=== PATIENT | male | born 1940 | race Caucasian/White ===

== ENCOUNTER → 2024-08-14 | Outpatient (CLI) | payer MEDICARE ==
--- NOTE | 2024-08-14 16:01 | HMCIMG ---
Exam Type: CT ABDOMEN/PELVIS W/O CONTRAST Clinical Information: Abnormal weight loss Comparison: None CT Dose Index (CTDI): 10.20 mGy Dose Length Product (DLP): 530.00 total mGy-cm PROTOCOL: Routine noncontrast helical scanning of the abdomen and pelvis was performed at 5mm collimation. Findings: No evidence of nephro or ureterolithiasis is found. No hydronephrosis or ureteral dilatation is seen. The kidneys are atrophic. The lung bases are clear. Mild pericardial effusion. The stomach is unremarkable. It shows no wall thickening. No gross ulceration is seen. It is not overly distended. There are no surrounding inflammatory changes. No wall lesions are identified to suggest cancer. The spleen is unremarkable. It is not enlarged. The pancreas shows normal anatomy. It is not fatty replaced. It shows no lesions. The pancreatic duct is not dilated. There is evidence of cholelithiasis. No evidence of acute or chronic inflammation is seen. The adrenal glands are unremarkable. There is no enlargement. No lesions are noted. The liver is unremarkable. It shows no focal masses. The appendix is unremarkable. It shows no evidence of inflammation. No appendicolith is seen. There is no evidence of large or small bowel dilatation to suggest obstruction. However, there is a significant segment of the terminal ileum projecting into the cecum and the ascending colon. The ileocecal valve consistent with nonobstructive intussusception. The urinary bladder is unremarkable. There is no wall thickening to suggest tumor or inflammation. There are no intraluminal calculi. There are no diverticula. There is no evidence of chronic bladder outlet obstruction. There is no evidence of urinary bladder distention to suggest urinary retention. The other pelvic structures are unremarkable. The bony and vascular structures are unremarkable for the patient's age. IMPRESSION: There is no evidence of large or small bowel dilatation to suggest obstruction. However, there is a significant segment of the terminal ileum projecting into the cecum and the ascending colon. The ileocecal valve consistent with nonobstructive intussusception. This study was performed using dose reduction techniques to include automated exposure control and/or adjustment of the mA and/or kV according to patient size.
== END | disposition home or self-care (01) ==
LOC: RAH 11:21
PROVIDERS: ATTEND Family Medicine
DX: K80.20 Calculus of gallbladder without cholecystitis without obstruction (principal); I31.39 Other pericardial effusion (noninflammatory); K63.89 Other specified diseases of intestine; R63.4 Abnormal weight loss
CPT/HCPCS: 74176

== ENCOUNTER → 2024-09-05 | Outpatient (CLI) | payer MEDICARE ==
[~2024-09-05] MED LIST: ATOR40TA71 PO; CARV12.511 PO
--- NOTE | 2024-09-05 13:49 | HMCIMG ---
CT CHEST W/O CONTRAST HISTORY: Malignant neoplasm of ascending colon COMPARISON: None TECHNIQUE: Multiple sequential axial images of the chest were obtained from the thoracic inlet through upper abdomen. Patient was not given contrast through intravenous route. FINDINGS: COPD changes are seen. There are interstitial fibrosis. Tiny pericardial effusion is seen. There is no evidence of pulmonary nodule or parenchymal disease. No pleural effusion or pericardial effusion is seen. There is no evidence of pneumothorax. There are normal size mediastinal and hilar lymph nodes. The heart is not enlarged. Degenerative changes of the thoracolumbar spine are present. There is no evidence of adrenal nodule. Post cholecystectomy changes are seen. Gastric distention is seen. Calcified granuloma are seen. There appears to be hypodense nodule in the left hepatic lobe measuring 2 cm may be related to neoplastic process. Evaluation is limited due to lack of intravenous contrast. Bilateral renal cortical scarring is seen. Gallstone is seen in the contracted gallbladder. Coronary arterial calcifications are seen. IMPRESSION: 1. Findings as described above. CT was performed with one or more following dose reduction techniques: automated exposure control, adjustment of the mA and kv according to patient's size, or use of a iterative reconstruction technique.
== END | disposition home or self-care (01) ==
LOC: RAH 12:25
PROVIDERS: ATTEND Surgery
DX: C18.6 Malignant neoplasm of descending colon (principal); J84.10 Pulmonary fibrosis, unspecified; J44.9 Chronic obstructive pulmonary disease, unspecified; M47.815 Spondylosis without myelopathy or radiculopathy, thoracolumbar region; I25.10 Atherosclerotic heart disease of native coronary artery without angina pectoris; K80.20 Calculus of gallbladder without cholecystitis without obstruction; Z90.49 Acquired absence of other specified parts of digestive tract
CPT/HCPCS: 71250

== ENCOUNTER 2024-09-27 13:17 | Inpatient (IN) | payer MEDICARE ==
[~2024-09-27] VITALS: Ht 177.8 cm; Wt 65.0 kg
[~2024-09-27 13:17] MED LIST changes: +ASPI-1197 PO; +EZET10TA48 PO; +OMEP40CA21 PO; +SUCR1ORA15 PO
--- NOTE | 2024-09-27 14:51 | ERN ---
General Chief Complaint: Dehydration Stated Complaint: NAUSEA, VOMITTING, POSSIBLE DEHYDRATION Time Seen by MD: 13:25 Source: patient, family History of Present Illness Initial Comments Patient is a 83-year-old gentleman coming in with the abdominal pain abdominal distention. Patient states that he has not been able to tolerate oral intake. He was evaluated by GI specialist and sent in for further evaluation. He states that he had a surgery on September 12 in his had abdominal pain since then. Allergies: Coded Allergies: No Known Drug Allergies (Unverified Allergy, Unknown, 09/08/24) Home Meds Reported Medications Aspirin (Aspirin) 81 Mg Tab.chew, 81 MG PO DAILY, TAB.CHEW 09/12/24 Omeprazole (Omeprazole) 40 Mg Capsule.dr, 40 MG PO BID, CAP 09/12/24 Ezetimibe (Ezetimibe) 10 Mg Tablet, 10 MG PO DAILY, TAB 09/12/24 Sucralfate (Sucralfate) 1 Gram/10 Ml Oral.susp, 10 ML PO QID for 30 Days, #600 ML 0 Refills 09/12/24 Atorvastatin Calcium (Atorvastatin Calcium) 40 Mg Tablet, 40 MG PO HS, TAB 09/08/24 Carvedilol (Carvedilol) 12.5 Mg Tablet, 12.5 MG PO BID, TAB 09/08/24 Past Medical History Past Medical History: Diabetes-Type II, Hypertension Past Surgical History: Other ROS Dictation CONSTITUTIONAL: No chills, no fever, no weakness, no diaphoresis, no malaise. HEAD/FACE: No signs of trauma. EENT: No eye pain, no blurred vision, no tearing, no double vision, no ear pain, no ear discharge, no nose pain, no nasal congestion, no throat pain, no throat swelling, no mouth pain. RESPIRATORY: No cough, no orthopnea, no SOB, no stridor, no wheezing. CARDIOVASCULAR: No chest pain, no edema, no palpitations, no syncope. GASTROINTESTINAL/ABDOMINAL: abdominal pain, no constipation, no diarrhea, nausea, vomiting. GENITOURINARY: No abnormal discharge, no dysuria, no frequent urination, no hem aturia. No complaints of pain in the genitals. MUSCULOSKELETAL: No back pain, no gout, no joint pain, no joint swelling, no mu scle pain, no muscle stiffness, no neck pain. INTEGUMENTARY: No change in color, no change in hair/nails, no dryness, no lesion, no lumps, no rash. NEUROLOGICAL/PSYCH: No anxiety, not depressed, no emotional problem, no headache, no numbness, no pre-existing deficit, no history of seizures, no tremors, no weakness. HEMATOLOGIC/LYMPHATIC: Not anemic, no history of blood clots, no apparent bleeding, no bruising, glands not swollen. All Systems Negative, Except as Noted. Physical Exam Physical Exam Dictation VITAL SIGNS: Reviewed. GENERAL APPEARANCE: Alert, oriented x3, no acute distress, obese. HEAD AND FACE: Non-traumatic. EYES: PERRL, pink conjunctivas, eyelid no trauma, anterior chamber clear. EARS: Pinnas intact and no signs of trauma or erythema. Ear canals clear and no discharge. TMs no erythema. NOSE: No discharge, no bleeding. OROPHARYNX: Mouth normal, teeth no caries, tongue pink. Pharynx clear, no erythema. Tonsils no exudates, no abscesses noted. Mucous membrane moist. NECK: Supple, non-tender, no thyromegaly, no masses, no JVD, no bruits. BREAST: Deferred. CHEST: No tenderness, no crepitus, no paradoxical movement, no retractions. LUNGS: Clear, well-ventilated, symmetric, no rales, no wheezing, no rhonchi, no stridor, good breath sounds bilaterally. HEART: Regular rate, regular rhythm, no murmur, no gallops. VASCULAR: No peripheral edema. ABDOMEN: Soft, positive bowel sounds, nondistended, no guarding, nontender, no rebound, no masses no hepatomegaly, no splenomegaly, no Alves's sign, no hernias. RECTAL: Deferred. GENITAL: Deferred. NEUROLOGICAL: Normal speech, gross motor function intact, gross sensory function intact. MUSCULOSKELETAL: Neck nontender, full range of motion, back nontender, full range of motion. EXTREMITIES: Nontender, full range of motion. SKIN: Color pink, dry, no turgor, no rash, no lacerations, no abrasions, no contusions. LYMPHATICS: Deferred. Results Laboratory and Microbiology Lab and Micro Result Laboratory Tests Test 09/27/24 16:00 White Blood Count 11.8 K/uL (4.8-10.8) H Red Blood Count 3.41 MIL/uL (4.50-6.20) L Hemoglobin 10.5 g/dL (14.0-18.0) L Hematocrit 32.4 % (42-54) L Mean Corpuscular Volume 95.0 fL (79-99) Mean Corpuscular Hemoglobin 30.8 pg (27.0-33.0) Mean Corpuscular Hemoglobin Concent 32.4 g/dL (32.0-36.0) Red Cell Distribution Width 13.9 % (11.0-15.5) Platelet Count 480 K/uL (130-400) H Mean Platelet Volume 10.1 fL (7.5-10.5) Immature Granulocyte % (Auto) 0.5 % (0-1) Neutrophils (%) (Auto) 80.4 % (40.0-77.0) H Lymphocytes (%) (Auto) 12.0 % (21.0-51.0) L Monocytes (%) (Auto) 6.4 % (3.0-13.0) Eosinophils (%) (Auto) 0.4 % (0.0-8.0) Basophils (%) (Auto) 0.3 % (0.0-5.0) Neutrophils # (Auto) 9.5 K/uL (1.8-7.7) H Lymphocytes # (Auto) 1.4 K/uL (1.0-4.8) Monocytes # (Auto) 0.8 K/uL (0.1-1.0) Eosinophils # (Auto) 0.05 K/uL (0.00-0.70) Basophils # (Auto) 0.04 K/uL (0.00-0.20) Absolute Immature Granulocyte (auto 0.06 K/uL (0-1) Nucleated Red Blood Cells 0.0 % (0.0-0.19) Labs Reviewed?: Yes EKG/XRAY/US/CT/MRI EKG Comment 09/27/2024 time 4:03 p.m. Ventricular rate 63 Sinus rhythm DC [address] wave elevation or depression CT Scan Comment [place] [address] [address] IMAGING REPORT Signed PATIENT: BURT LEDEZMA MR#: [id number] : 1940 SEX: M AGE: 83 LOCATION: [facility] ORDER [id number] STATUS: REG REPORT#: [id number] SERVICE [id number] REASON: abd distension ORDERING PHYSICIAN: NOREEN SHERIDAN MD PROCEDURE: ABD PEL WO - CT ABDOMEN/PELVIS W/O CONTRAST CT ABDOMEN WITHOUT CONTRAST. CT PELVIS WITHOUT CONTRAST. INDICATION: Abdominal distention TECHNIQUE: Routine transaxial imaging using 5 mm slice thickness through the abdomen and pelvis without the administration of IV contrast. Thin slice reconstructions are also provided. Coronal and sagittal reformatted images acquired for interpretation. CT was performed with one or more of the following dose reduction techniques: Automated exposure control, adjustment of the mA and/or kV according to patient size, or use of iterative reconstruction technique. COMPARISON: None FINDINGS: ON NONCONTRAST IMAGING: ABDOMEN: Heart size is normal. Trace pericardial fluid inferolaterally on the right. Large aggregates of "tree-in-bud" micronodular opacities scattered throughout the right lung. Left lung base appears normal. Stomach is markedly distended with mostly fluid and a small amount of ingested food material and air. No abnormal renal calcifications, hydronephrosis, perinephric inflammation, or proximal hydroureter detected. Moderate bilateral renal atrophy. 2.1 cm simple left renal cyst at the upper pole. 1.1 cm simple cyst at the lower pole of the left kidney. Subcentimeter proteinaceous or hemorrhagic cyst at the mid to lower portion of the left kidney. The liver is normal in size and smooth in contour without biliary duct dilation. Trace free fluid within the right upper abdomen. The spleen is normal in size and attenuation. Miniscule calcific gallbladder fundal stone. The pancreas appears normal without pancreatic duct dilation. The adrenal glands appear normal. No significant abdominal, retrocrural or retroperitoneal adenopathy noted. No evidence for intra-abdominal free air or organized fluid collection. Mild calcific plaque is noted along the abdominal aortic and iliac vessel sanchez without aneurysmal dilation. Tremendous amount of subcutaneous emphysema along the anterior right greater than left abdomen and pelvis including extension into along both groins and scrotal soft tissues. PELVIS: Small fat and fluid-containing nonobstructing right inguinal hernia. No abnormal calcifications within the urinary bladder or distal ureters. No evidence for free air or organized pelvic fluid collection. No significant pelvic adenopathy detected. Fluid-filled dilated small bowel loops identified. Transition point is at the anterolateral right lower abdominal fat and small bowel loop-containing nonobstructing hernia with abdominal wall defect measuring up to 1.5 cm.. Several diverticula along the distal colon. Splenic flexure anastomosis appears normal. 4.5 cm air and fluid-filled diverticulum arises proximally off the duodenal sweep. Visible osseous structures are intact. IMPRESSION: 1. Small fat and small bowel loop-containing anterolateral right lower abdominal wall hernia contributing to acute small bowel obstruction, without pneumatosis or pneumoperitoneum. Small fat and fluid-containing nonobstructing right inguinal hernia. 2. Tremendous amount of subcutaneous emphysema along the anterior right greater than left abdomen and pelvis including extension into along both groins and scrotal soft tissues. 3. Nontypical right lung pneumonia or other small airways disease process. 4. Distal colonic diverticulosis. 5. Cholelithiasis. 6. Moderate bilateral renal atrophy. 7. Trace pericardial fluid inferolaterally on the right. 8. Trace free fluid within the right upper abdomen. 9. Additional minor findings and pertinent negatives as reported. DICTATED BY: RUBÉN RODRIGUEZ MD DATE: 09/27/24 1527 ELECTRONICALLY SIGNED BY: RUBÉN RODRIGUEZ MD DATE: 09/27/24 1537 [facility] MDM: Differential diagnosis: Abdominal pain, obstruction, Rationale: Tests considered and ordered secondary to shared decision making include: Previous outside records reviewed: Old ER visits. Risk of complication and/or morbidity or mortality of patient management: None Medications-Per medication reconciliation Need for hospitalization: Patient does meet criteria for hospitalization. Need for emergency major/minor surgery: No There are no social concerns with this patient. Prescription drug management Prescriptions will include symptomatic care Patient's prior external medical records from other ER visits were reviewed by me as indicated. Prior testing and results from previous visits were reviewed. Prior tests were taken into account with medical decision making and resource utilization, independent historian/historians were used to obtain complete medical history. I independently interpreted the test that were performed, results were reviewed by me and considered findings on radiology if ordered. Medical management and examination interpretation discussions were had by me with other qualified healthcare professionals as indicated for the patient's care. Patient is a an 83-year-old gentleman coming in to be evaluated for abdominal pain. CT disclose the right ventral hernia causing bowel obstruction, bowel obstruction was reduced and binder was placed. Patient will be admitted under the care of hospitalist group for ongoing evaluation. Consulted surgeon Dr. Schultz. ED Course Orders Procedure Category Date Status Time Cbc With Differential LAB 09/27/24 Complete 14:48 Prothrombin Time With LAB 09/27/24 In Process INR 14:48 Partial LAB 09/27/24 In Process Thromboplastin Time 14:48 Blood Cult FELIX 09/27/24 Logged 14:48 Urinalysis Profile LAB 09/27/24 Logged 14:48 Culture Urine FELIX 09/27/24 Logged 14:48 Lactic Acid LAB 09/27/24 In Process 14:48 Basic Metabolic Panel LAB 09/27/24 In Process 14:48 Ct Abdomen/Pelvis W/O CT 09/27/24 Resulted Contrast 14:48 12 Lead Ekg Tracing- EKG 09/27/24 Resulted Technical 15:43 Cardiac Panel LAB 09/27/24 In Process 16:00 Vital Signs Date Time Temp Pulse Resp B/P (MAP) Pulse Ox O2 Delivery O2 Flow Rate FiO2 09/27/24 14:40 95.9 73 20 142/85 Room Air Procedure Dictation Right ventral hernia causing a bowel obstruction was reduced using Trendelenburg procedure with pressure above the ventral hernia good reduction accomplished, abdominal binder with the Ebenezer wrap were placed in physician to apply ice pressure on ventral hernia. Patient tolerated procedure well DX & DISP Disposition: Inpatient Decision to Admit Time: 16:26 Departure Impression: Primary Impression: Bowel obstruction Additional Impression: Ventral hernia Condition: Stable Referrals: GABY VILLEGAS MD (PCP) NOREEN SHERIDAN MD Sep 27, 2024 14:51
--- NOTE | 2024-09-27 15:37 | HMCIMG ---
CT ABDOMEN WITHOUT CONTRAST. CT PELVIS WITHOUT CONTRAST. INDICATION: Abdominal distention TECHNIQUE: Routine transaxial imaging using 5 mm slice thickness through the abdomen and pelvis without the administration of IV contrast. Thin slice reconstructions are also provided. Coronal and sagittal reformatted images acquired for interpretation. CT was performed with one or more of the following dose reduction techniques: Automated exposure control, adjustment of the mA and/or kV according to patient size, or use of iterative reconstruction technique. COMPARISON: None FINDINGS: ON NONCONTRAST IMAGING: ABDOMEN: Heart size is normal. Trace pericardial fluid inferolaterally on the right. Large aggregates of "tree-in-bud" micronodular opacities scattered throughout the right lung. Left lung base appears normal. Stomach is markedly distended with mostly fluid and a small amount of ingested food material and air. No abnormal renal calcifications, hydronephrosis, perinephric inflammation, or proximal hydroureter detected. Moderate bilateral renal atrophy. 2.1 cm simple left renal cyst at the upper pole. 1.1 cm simple cyst at the lower pole of the left kidney. Subcentimeter proteinaceous or hemorrhagic cyst at the mid to lower portion of the left kidney. The liver is normal in size and smooth in contour without biliary duct dilation. Trace free fluid within the right upper abdomen. The spleen is normal in size and attenuation. Miniscule calcific gallbladder fundal stone. The pancreas appears normal without pancreatic duct dilation. The adrenal glands appear normal. No significant abdominal, retrocrural or retroperitoneal adenopathy noted. No evidence for intra-abdominal free air or organized fluid collection. Mild calcific plaque is noted along the abdominal aortic and iliac vessel sanchez without aneurysmal dilation. Tremendous amount of subcutaneous emphysema along the anterior right greater than left abdomen and pelvis including extension into along both groins and scrotal soft tissues. PELVIS: Small fat and fluid-containing nonobstructing right inguinal hernia. No abnormal calcifications within the urinary bladder or distal ureters. No evidence for free air or organized pelvic fluid collection. No significant pelvic adenopathy detected. Fluid-filled dilated small bowel loops identified. Transition point is at the anterolateral right lower abdominal fat and small bowel loop-containing nonobstructing hernia with abdominal wall defect measuring up to 1.5 cm.. Several diverticula along the distal colon. Splenic flexure anastomosis appears normal. 4.5 cm air and fluid-filled diverticulum arises proximally off the duodenal sweep. Visible osseous structures are intact. IMPRESSION: 1. Small fat and small bowel loop-containing anterolateral right lower abdominal wall hernia contributing to acute small bowel obstruction, without pneumatosis or pneumoperitoneum. Small fat and fluid-containing nonobstructing right inguinal hernia. 2. Tremendous amount of subcutaneous emphysema along the anterior right greater than left abdomen and pelvis including extension into along both groins and scrotal soft tissues. 3. Nontypical right lung pneumonia or other small airways disease process. 4. Distal colonic diverticulosis. 5. Cholelithiasis. 6. Moderate bilateral renal atrophy. 7. Trace pericardial fluid inferolaterally on the right. 8. Trace free fluid within the right upper abdomen. 9. Additional minor findings and pertinent negatives as reported.
--- NOTE | 2024-09-27 16:04 | EKG ---
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
[2024-09-27 16:11] LABS: BASOPHILS # (AUTO) 0.04 K/uL (0.00-0.20); BASOPHILS % (AUTO) 0.3 % (0.0-5.0); EOSINOPHILS # (AUTO) 0.05 K/uL (0.00-0.70); EOSINOPHILS % (AUTO) 0.4 % (0.0-8.0); HEMATOCRIT 32.4 % (42-54); IMMATURE GRANULOCYTE ABSOLUTE 0.06 K/uL (0-1); LYMPHOCYTES # (AUTO) 1.4 K/uL (1.0-4.8); MEAN CORPUSCULAR HEMOGLOBIN 30.8 pg (27.0-33.0); MEAN CORPUSCULAR HGB CONC 32.4 g/dL (32.0-36.0); MONOCYTES # (AUTO) 0.8 K/uL (0.1-1.0); MONOCYTES % (AUTO) 6.4 % (3.0-13.0); NEUTROPHILS # (AUTO) 9.5 K/uL (1.8-7.7); NEUTROPHILS % (AUTO) 80.4 % (40.0-77.0); PLATELET COUNT (AUTO) 480 K/uL (130-400); RED BLOOD CELL COUNT(AUTO) 3.41 MIL/uL (4.50-6.20); RED CELL DISTRIBUTION WIDTH 13.9 % (11.0-15.5); WHITE BLOOD COUNT (AUTO) 11.8 K/uL (4.8-10.8)
[2024-09-27 16:28] LABS: CREATININE 5.4 mg/dL (0.5-1.3); POTASSIUM 4.5 mmol/L (3.5-5.1)
[2024-09-27] MEDS: BENZOCAINE 20% 57 GM SPRAY TP SCH (16:30)
[2024-09-27 16:34] LABS: INR 1.38 (0.85-1.15); PROTHROMBIN TIME 14.2 SEC (9.6-11.6)
[2024-09-27 16:36] LABS: PARTIAL THROMBOPLASTIN TIME 30.2 SEC (26.3-35.5)
--- NOTE | 2024-09-27 16:53 | NUR ---
ABDOMINAL BINDER PLACED PER DR. VAZQUEZ ORDERS
--- NOTE | 2024-09-27 17:00 | NUR ---
ASSUMED PATIENT CARE.
--- NOTE | 2024-09-27 17:10 | NUR ---
NASOGASTRIC TUBE PLACED ON LEFT OLIVO. DOUBLE VERIFICATION PLACEMENT DONE WITH MR. HARVEY PONCE. NASOGASTRIC TUBE CONNECTED TO LOW WALL INTERMITENT SUCTION.
--- NOTE | 2024-09-27 17:10 | NUR ---
20g was placed on right antecubital.
--- NOTE | 2024-09-27 18:37 | NUR ---
pending urine sample
--- NOTE | 2024-09-27 18:48 | NUR ---
Home medication placed in patients chart. Pending to be reconsiled.
--- NOTE | 2024-09-27 19:17 | NUR ---
PT CARE ASSUMED AT THIS TIME
--- NOTE | 2024-09-27 19:46 | NUR ---
PT GIVEN A URINAL AT THIS TIME. PENDING COLLECTION OF URINE. PT EDUCATED ABOUT THE IMPORTANCE OF COLLECTION OF URINE FOR URINE ANALYSIS. PT VERBILIZED UNDERSTANDING OF EDUCATION.
--- NOTE | 2024-09-27 23:06 | NUR ---
REPORT GIVEN TO YOLANDE PONCE AT THIS TIME
[2024-09-27 23:25] VITALS: BP 142/72; PULSE 73; RESP 18; TEMP 97.5
[2024-09-27 23:47] VITALS: O2SAT 99
[2024-09-28] VITALS (25 sets, daily range): BP systolic 114–152; BP diastolic 55–70; PULSE 59–71; RESP 14–21; TEMP 97.5–98.7; O2SAT 98–100
[2024-09-28 02:02] LABS: APPEARANCE,URINE CLEAR (CLEAR); BILIRUBIN,URINE NEGATIVE (NEGATIVE); COLOR,URINE YELLOW (YELLOW); GLUCOSE, URINE (UA) NEGATIVE (NEGATIVE); KETONES,URINE NEGATIVE (NEGATIVE); LEUKOCYTE ESTERASE ,URINE NEGATIVE Leu/uL (NEGATIVE); NITRATE,URINE NEGATIVE (NEGATIVE); OCCULT BLOOD,URINE NEGATIVE (NEGATIVE); PROTEIN,URINE 70 mg/dL (NEGATIVE); UROBILINOGEN,URINE 0.2 mg/dL (0.2-1.0)
[2024-09-28 02:10] LABS: ADD UA MICROSCOPIC YES
[2024-09-28 02:11] LABS: BACTERIA,URINE RARE /HPF (None Seen); MUCUS,URINE RARE LPF (None Seen); OTHER CASTS, URINE 6 /LPF (None Seen); RBC,URINE 0-1 /HPF (0-1)
[2024-09-28] MEDS ORDERED: LACTULOSE 20 GM/30 ML UDCUP PO PRN (07:00)
[2024-09-28] MEDS ORDERED: NITROGLYCERIN 0.4 MG SL TAB SL PRN (07:00)
[2024-09-28] MEDS ORDERED: ondanSETRON 4MG INJ IV PRN (07:00)
[2024-09-28] MEDS ORDERED: FAMOTIDINE 20MG VIAL IV PRN (07:00)
[2024-09-28] MEDS ORDERED: acetaMINOPHEN 325 MG TAB PO PRN ×2 (07:00)
[2024-09-28] MEDS ORDERED: DiphenhydrAMINE HCL 50 MG/ML VIAL IV PRN (07:00)
[2024-09-28] MEDS ORDERED: MAG/ALUM/SIMETH 30 ML UDCUP PO PRN (07:00)
[2024-09-28] MEDS ORDERED: hydroMORPHone 0.5 MG SYG (0.5MG/0.5ML) IV PRN (07:00)
[2024-09-28] MEDS ORDERED: HYDROcodone/APAP 5/325 1 TAB TABLET PO PRN (07:00)
[2024-09-28] MEDS ORDERED: DiphenhydrAMINE HCL 25 MG CAPSULE PO PRN (07:00)
[2024-09-28] MEDS ORDERED: guaiFENesin-DM 200/20MG 10ML PO PRN (07:00)
[2024-09-28 07:24] LABS: HEMATOCRIT 29.8 % (42-54); MEAN CORPUSCULAR HEMOGLOBIN 30.9 pg (27.0-33.0); MEAN CORPUSCULAR HGB CONC 31.9 g/dL (32.0-36.0); MEAN CORPUSCULAR VOLUME 97.1 fL (79-99); RED BLOOD CELL COUNT(AUTO) 3.07 MIL/uL (4.50-6.20); WHITE BLOOD COUNT (AUTO) 9.1 K/uL (4.8-10.8)
[2024-09-28] MEDS: 0.9%NACL 1000ML 1,000 ML IV SCH (07:42)
[2024-09-28 07:53] LABS: ALBUMIN 2.3 g/dL (3.5-5.0); BILIRUBIN,TOTAL 0.6 mg/dL (0.2-1.0); CREATININE 6.1 mg/dL (0.5-1.3); MAGNESIUM 1.7 mg/dL (1.80-2.40); PHOSPHORUS 4.2 mg/dL (2.5-4.9); POTASSIUM 4.2 mmol/L (3.5-5.1); THYROID STIMULATING HORMONE 1.05 uIU/mL (0.36-3.74); TOTAL PROTEIN, SERUM 5.7 g/dL (6.0-8.3)
--- NOTE | 2024-09-28 07:55 | CONS ---
COLORECTAL CONSULTATION NOTE Date of Consultation: Sep 28, 2024 Time of Consultation: 07:55 History of Present Illness: [ ] Review of Systems: CONSTITUTIONAL: No malaise or change in sensation of wellbeing. ENMT: No rhinorrhea, otorrhea, sinus pain, ear ache. CARDIOVASCULAR: No angina, palpitations, orthopnea or paroxysmal dyspnea. RESPIRATORY: No SOB. GASTROINTESTINAL: No abdominal pain, nausea, vomiting, diarrhea, hematemesis, melena or change in the patient's habitual bowel movements consistency/number. GENITOURINARY: No dysuria, hematuria or change in bladder continence. MUSCULOSKELETAL: No new muscle pain or decrease in muscular strength. No new joint swelling, redness or tenderness. SKIN: No new rash. Past Medical History: [ ] Past Surgical History: [ ] Past Social History: [ ] Family History: [ ] Coded Allergies: No Known Drug Allergies (Unverified Allergy, Unknown, 09/08/24) Physical Exam: GEN: Awake, alert, oriented in person, time and place, and in no acute distress. HEENT: No sinus tenderness. Tympanic membranes were not examined. No rhinorrhea. Oral pharyngeal mucosa is pink, moist and within normal limits. Neck is supple with no cervical lymphadenopathy, thyromegaly or JVD. CHEST: Inspection, palpation and percussion of the chest were unremarkable. Lung auscultation revealed normal breath sounds bilaterally. CARDIAC: PMI is within normal limits. Heart sounds are regular. Normal S1, S2. No gallop or murmur. ABD: Soft, non-tender and not distended. No peritoneal signs on palpation. No organomegaly. Normal bowel sounds. EXT: No cyanosis or clubbing. No edema. SKIN: Intact. No rashes. JOINTS: No evidence of synovitis or acute arthritis. NEURO: Alert and oriented to name, place and person. Cranial nerve examination is unremarkable. No focal motor deficits. Normal speech. Gait is normal. Strength is normal. Vital Sign (Last 24 Hours) 09/27/24 09/28/24 23:47 03:50 Temp 98.4 Pulse 67 Resp 16 B/P (MAP) 127/64 Pulse Ox 98 O2 Delivery Room Air O2 Flow Rate 0 FiO2 21 Intake & Output (last 24hrs) 09/27/24 09/27/24 09/28/24 15:00 23:00 07:00 Output Total 600 ml Balance -600 ml Laboratory: [ ] Laboratory: Test 09/28/24 07:20 09/28/24 01:40 09/27/24 16:00 Range/Units White Blood Count 9.1 4.8-10.8 K/uL Red Blood Count 3.07 L 4.50-6.20 MIL/uL Hemoglobin 9.5 L 14.0-18.0 g/dL Hematocrit 29.8 L 42-54 % Mean Corpuscular Volume 97.1 79-99 fL Mean Corpuscular Hemoglobin 30.9 27.0-33.0 pg Mean Corpuscular Hemoglobin Concent 31.9 L 32.0-36.0 g/dL Red Cell Distribution Width 14.0 11.0-15.5 % Platelet Count 366 130-400 K/uL Mean Platelet Volume 9.6 7.5-10.5 fL Nucleated Red Blood Cells 0.0 0.0-0.19 % Lactic Acid Level 1.8 0.8-2.5 mmol/L Procalcitonin 0.60 H 0.05-0.5 ng/mL Urine Color YELLOW YELLOW Urine Appearance CLEAR CLEAR Urine pH 5.0 5.0-8.0 Urine Specific [place] 1.022 1.001-1.031 Urine Protein 70 H NEGATIVE mg/dL Urine Glucose (UA) NEGATIVE NEGATIVE mg/dL Urine Ketones NEGATIVE NEGATIVE mg/dL Urine Occult Blood NEGATIVE NEGATIVE Urine Nitrate NEGATIVE NEGATIVE Urine Bilirubin NEGATIVE NEGATIVE mg/dL Urine Urobilinogen 0.2 0.2-1.0 mg/dL Urine Leukocyte Esterase NEGATIVE NEGATIVE Joyce/uL Urine RBC 0-1 0-1 /HPF Urine WBC 2-5 H 0-1 /HPF Urine Bacteria RARE None Seen /HPF Urine Hyaline Casts 2-5 H 0-1 /LPF /LPF Urine Other Casts 6 None Seen /LPF Immature Granulocyte % (Auto) 0.5 0-1 % Neutrophils (%) (Auto) 80.4 H 40.0-77.0 % Lymphocytes (%) (Auto) 12.0 L 21.0-51.0 % Monocytes (%) (Auto) 6.4 3.0-13.0 % Eosinophils (%) (Auto) 0.4 0.0-8.0 % Basophils (%) (Auto) 0.3 0.0-5.0 % Neutrophils # (Auto) 9.5 H 1.8-7.7 K/uL Lymphocytes # (Auto) 1.4 1.0-4.8 K/uL Monocytes # (Auto) 0.8 0.1-1.0 K/uL Eosinophils # (Auto) 0.05 0.00-0.70 K/uL Basophils # (Auto) 0.04 0.00-0.20 K/uL Absolute Immature Granulocyte (auto 0.06 0-1 K/uL Prothrombin Time 14.2 H 9.6-11.6 SEC Prothromb Time International Ratio 1.38 H 0.85-1.15 Activated Partial Thromboplast Time 30.2 26.3-35.5 SEC Total Creatine Kinase 52 21-232 U/L Troponin I High Sensitivity 11.8 4-75 ng/L Current Medications Medications (Trade) Dose Ordered Sig/Juanita Route PRN Reason Start Time Stop Time Status Last Admin Dose Admin Acetaminophen (TYLenol 325MG TAB) 650 mg Q4H PRN PO MILD PAIN (1-3) 09/28/24 07:00 10/28/24 06:59 Acetaminophen (TYLenol 325MG TAB) 650 mg Q6H PRN PO TEMPERATURE GREATER THAN 101.5 09/28/24 07:00 10/28/24 06:59 Acetaminophen/ Hydrocodone Bitart (NORco 5/325MG) 1 tab Q4H PRN PO MODERATE PAIN (4-6) 09/28/24 07:00 10/03/24 06:59 Acetaminophen/ Hydrocodone Bitart (NORco 5/325MG) 2 tab Q4H PRN PO SEVERE PAIN (7-10) 09/28/24 07:00 10/03/24 06:59 Al Hydroxide/Mg Hydroxide (MAALox PLUS 30ML) 30 ml Q6H PRN PO INDIGESTION 09/28/24 07:00 10/28/24 06:59 Aspirin (Aspirin 81mg Chew Tab) 81 mg DAILY PO 09/28/24 09:00 10/28/24 08:59 Atorvastatin Calcium (LIPItor 40MG) 40 mg HS PO 09/28/24 21:00 10/28/24 20:59 Benzocaine (Hurricaine/ [place] 20% [place]) 50 mcg ONCE TP 09/27/24 16:30 09/28/24 07:12 DC 09/27/24 18:40 1 MCG Carvedilol (Coreg 12.5MG) 12.5 mg BID PO 09/28/24 09:00 10/28/24 08:59 Diphenhydramine HCl (BENAdryl CAP) 25 mg Q4H PRN PO MILD ITCHING/RASH 09/28/24 07:00 10/28/24 06:59 Diphenhydramine HCl (BENAdryl INJ) 25 mg Q6H PRN IV SEVERE ITCHING/RASH 09/28/24 07:00 10/28/24 06:59 EZETIMIBE (Zetia) 10 mg DAILY PO 09/28/24 09:00 10/28/24 08:59 Famotidine (Pepcid 20mg Vial) 20 mg BID PRN IV NAUSEA/VOMITING 09/28/24 07:00 09/28/24 07:17 DC Famotidine (Pepcid 20mg Tab) 20 mg Q48H PO 09/28/24 09:00 10/28/24 08:59 Guaifenesin/ Dextromethorphan (RobiTUSSin DM 200/20MG 10ML) 10 ml Q4H PRN PO COUGH 09/28/24 07:00 10/28/24 06:59 Heparin Sodium (Porcine) (HEParin 5,000 UNIT VIAL) 5,000 unit TID SQ 09/28/24 09:00 10/28/24 08:59 Hydromorphone HCl (DiLAUDid 0.5MG INJ) 0.5 mg Q4H PRN IV SEVERE PAIN (7-10) IF NPO 09/28/24 07:00 10/03/24 06:59 Lactulose (Constulose 20gm/ 30ml Udcup) 20 gm BID PRN PO CONSTIPATION 09/28/24 07:00 10/28/24 06:59 Nitroglycerin (Nitrostat) 0.4 mg PROTOCOL PRN SL CHEST PAIN 09/28/24 07:00 10/28/24 06:59 Ondansetron HCl (zoFRAN 4MG INJ) 4 mg Q6H PRN IV NAUSEA/VOMITING 09/28/24 07:00 10/28/24 06:59 Sodium Chloride 1,000 ml @ 100 mls/hr Q10H IV 09/28/24 07:00 10/28/24 06:59 09/28/24 07:42 100 MLS/HR Diagnostics / Radiology: [COPY/PASTE HERE IF NO REPORTS PLEASE DELETE SECTION] Assessment: [ ] Plan: [ ] KATELYN BANUELOS LIFTER DRIVER Sep 28, 2024 07:55
--- NOTE | 2024-09-28 08:30 | NUR ---
PATIENT TAKEN TO OR FOR SURGERY.
[2024-09-28] MEDS: ASPIRIN 81MG CHEW TAB PO SCH (08:31)
[2024-09-28] MEDS: carVEDIlol 12.5 MG TABLET PO SCH (08:31)
[2024-09-28] MEDS: FAMOTIDINE 20MG TAB PO SCH (08:32)
[2024-09-28] MEDS: EZETIMIBE 10 MG TAB PO SCH (08:32)
[2024-09-28] MEDS: HEParin 5,000 UNIT VIAL SQ SCH (08:32)
--- NOTE | 2024-09-28 09:16 | HP ---
[facility] HISTORY AND PHYSICAL Date of Service: Sep 28, 2024 Time of Service: 08:55 HISTORY OF PRESENT ILLNESS: 83 yo M w/a PMHx of hypertension, CKD IV, dyslipidemia, colon cancer s/p hemicolectomy (09/12/24) presented with abdominal pain, distention, recurrent n ausea and vomiting. He recently had surgery on September 12. CT of the abdomen and pelvis showed a herniated loop of small bowel in the right ventral abdomen, possibly through the incision for a laparoscopic port. Patient will be admitted for small bowel obstruction secondary to incarcerated loop of bowel, NG tube placed to intermittent suction and patient will be started on pain management with IV fluids. Colorectal surgery will be consulted to assess the patient. Patient also noted to have subcutaneous air which may be secondary to previous surgery however will start empiric antibiotics due to elevated lactic acid and WBC. Creatinine is uptrending from 5.4 up to 6.1, will consult nephrology for further recommendations. REVIEW OF SYSTEMS 12 point ROS negative unless noted in HPI PAST MEDICAL HISTORY: Hypertension CKD IV Dyslipidemia Colon cancer s/p hemicolectomy (09/12/24) PAST SURGICAL HISTORY: Robotic assisted laparoscopic hemicolectomy with reanastomosis, (09/12/24) PAST SOCIAL HISTORY: Denies smoking, drinking or illicit drug use Coded Allergies: No Known Drug Allergies (Unverified Allergy, Unknown, 09/08/24) PHYSICAL EXAM GENERAL APPEARANCE: The patient is awake, alert, and oriented, in no acute cardiopulmonary distress. NEUROLOGICAL: Cranial nerves II-XII grossly intact. Motor is 5/5 in bilateral upper and lower extremities proximal to distal. No sensory deficits. HEENT: Face is symmetric. Pupils are equal and reactive. Extraocular movements are intact. NECK: Supple. No JVD. No thyromegaly. No submental, submandibular, pre- /postauricular, occipital or supraclavicular lymphadenopathy. CHEST: Normal chest expansion. No Telemetry. LUNGS: Absence of any rales, rhonchi or any wheezing. CARDIOVASCULAR: Regular. S1 and S2 normal. No appreciable rubs, murmurs or gallops. ABDOMEN: Soft, nontender, and nondistended. There is no rebound, voluntary guarding, or rigidity. : Deferred. No Catherine. EXTREMITIES: Non-edematous and not cyanotic. No clubbing. Good capillary refill. SKIN: No skin breakdown. Vital Sign (Last 24 Hours) 09/27/24 09/28/24 23:47 07:30 Temp 98.2 Pulse 71 Resp 20 B/P (MAP) 123/59 Pulse Ox 98 O2 Delivery Room Air O2 Flow Rate 0 FiO2 21 Intake & Output (last 24hrs) 09/27/24 09/27/24 09/28/24 15:00 23:00 07:00 Output Total 600 ml Balance -600 ml LABS: Laboratory: Test 09/28/24 08:41 09/28/24 07:20 09/28/24 01:40 09/27/24 16:00 Range/Units Whole Blood Glucose 98 70-110 MG/DL White Blood Count 9.1 4.8-10.8 K/uL Red Blood Count 3.07 L 4.50-6.20 MIL/uL Hemoglobin 9.5 L 14.0-18.0 g/dL Hematocrit 29.8 L 42-54 % Mean Corpuscular Volume 97.1 79-99 fL Mean Corpuscular Hemoglobin 30.9 27.0-33.0 pg Mean Corpuscular Hemoglobin Concent 31.9 L 32.0-36.0 g/dL Red Cell Distribution Width 14.0 11.0-15.5 % Platelet Count 366 130-400 K/uL Mean Platelet Volume 9.6 7.5-10.5 fL Nucleated Red Blood Cells 0.0 0.0-0.19 % Sodium Level 136 136-145 mmol/L Potassium Level 4.2 3.5-5.1 mmol/L Chloride Level 98 L 101-111 mmol/L Carbon Dioxide Level 26 21-32 mmol/L Blood Urea Nitrogen 83 *H 7-18 mg/dL Creatinine 6.1 H 0.5-1.3 mg/dL Glomerular Filtration Rate Calc 9 >90 mL/min Random Glucose 102 70-105 mg/dL Lactic Acid Level 1.8 0.8-2.5 mmol/L Total Calcium 7.6 L 8.5-10.1 mg/dL Phosphorus Level 4.2 2.5-4.9 mg/dL Magnesium Level 1.70 L 1.80-2.40 mg/dL Total Bilirubin 0.6 0.2-1.0 mg/dL Aspartate Amino Transf (AST/SGOT) 16 10-37 U/L Alanine Aminotransferase (ALT/SGPT) 6 L 12-78 U/L Alkaline Phosphatase 90 50-136 U/L B-Type Natriuretic Peptide 63 0-100 pg/mL Total Protein 5.7 L 6.0-8.3 g/dL Albumin 2.3 L 3.5-5.0 g/dL Procalcitonin 0.60 H 0.05-0.5 ng/mL Thyroid Stimulating Hormone (TSH) 1.05 0.36-3.74 uIU/mL Urine Color YELLOW YELLOW Urine Appearance CLEAR CLEAR Urine pH 5.0 5.0-8.0 Urine Specific [place] 1.022 1.001-1.031 Urine Protein 70 H NEGATIVE mg/dL Urine Glucose (UA) NEGATIVE NEGATIVE mg/dL Urine Ketones NEGATIVE NEGATIVE mg/dL Urine Occult Blood NEGATIVE NEGATIVE Urine Nitrate NEGATIVE NEGATIVE Urine Bilirubin NEGATIVE NEGATIVE mg/dL Urine Urobilinogen 0.2 0.2-1.0 mg/dL Urine Leukocyte Esterase NEGATIVE NEGATIVE Joyce/uL Urine RBC 0-1 0-1 /HPF Urine WBC 2-5 H 0-1 /HPF Urine Bacteria RARE None Seen /HPF Urine Hyaline Casts 2-5 H 0-1 /LPF /LPF Urine Other Casts 6 None Seen /LPF Immature Granulocyte % (Auto) 0.5 0-1 % Neutrophils (%) (Auto) 80.4 H 40.0-77.0 % Lymphocytes (%) (Auto) 12.0 L 21.0-51.0 % Monocytes (%) (Auto) 6.4 3.0-13.0 % Eosinophils (%) (Auto) 0.4 0.0-8.0 % Basophils (%) (Auto) 0.3 0.0-5.0 % Neutrophils # (Auto) 9.5 H 1.8-7.7 K/uL Lymphocytes # (Auto) 1.4 1.0-4.8 K/uL Monocytes # (Auto) 0.8 0.1-1.0 K/uL Eosinophils # (Auto) 0.05 0.00-0.70 K/uL Basophils # (Auto) 0.04 0.00-0.20 K/uL Absolute Immature Granulocyte (auto 0.06 0-1 K/uL Prothrombin Time 14.2 H 9.6-11.6 SEC Prothromb Time International Ratio 1.38 H 0.85-1.15 Activated Partial Thromboplast Time 30.2 26.3-35.5 SEC Total Creatine Kinase 52 21-232 U/L Troponin I High Sensitivity 11.8 4-75 ng/L Current Medications Medications (Trade) Dose Ordered Sig/Juanita Route PRN Reason Start Time Stop Time Status Last Admin Dose Admin Acetaminophen (TYLenol 325MG TAB) 650 mg Q4H PRN PO MILD PAIN (1-3) 09/28/24 07:00 10/28/24 06:59 Acetaminophen (TYLenol 325MG TAB) 650 mg Q6H PRN PO TEMPERATURE GREATER THAN 101.5 09/28/24 07:00 10/28/24 06:59 Acetaminophen/ Hydrocodone Bitart (NORco 5/325MG) 1 tab Q4H PRN PO MODERATE PAIN (4-6) 09/28/24 07:00 10/03/24 06:59 Acetaminophen/ Hydrocodone Bitart (NORco 5/325MG) 2 tab Q4H PRN PO SEVERE PAIN (7-10) 09/28/24 07:00 10/03/24 06:59 Al Hydroxide/Mg Hydroxide (MAALox PLUS 30ML) 30 ml Q6H PRN PO INDIGESTION 09/28/24 07:00 10/28/24 06:59 Aspirin (Aspirin 81mg Chew Tab) 81 mg DAILY PO 09/28/24 09:00 10/28/24 08:59 Atorvastatin Calcium (LIPItor 40MG) 40 mg HS PO 09/28/24 21:00 10/28/24 20:59 Benzocaine (Hurricaine/ [place] 20% [place]) 50 mcg ONCE TP 09/27/24 16:30 09/28/24 07:12 DC 09/27/24 18:40 1 MCG Carvedilol (Coreg 12.5MG) 12.5 mg BID PO 09/28/24 09:00 10/28/24 08:59 Diphenhydramine HCl (BENAdryl CAP) 25 mg Q4H PRN PO MILD ITCHING/RASH 09/28/24 07:00 10/28/24 06:59 Diphenhydramine HCl (BENAdryl INJ) 25 mg Q6H PRN IV SEVERE ITCHING/RASH 09/28/24 07:00 10/28/24 06:59 EZETIMIBE (Zetia) 10 mg DAILY PO 09/28/24 09:00 10/28/24 08:59 Famotidine (Pepcid 20mg Vial) 20 mg BID PRN IV NAUSEA/VOMITING 09/28/24 07:00 09/28/24 07:17 DC Famotidine (Pepcid 20mg Tab) 20 mg Q48H PO 09/28/24 09:00 10/28/24 08:59 Guaifenesin/ Dextromethorphan (RobiTUSSin DM 200/20MG 10ML) 10 ml Q4H PRN PO COUGH 09/28/24 07:00 10/28/24 06:59 Heparin Sodium (Porcine) (HEParin 5,000 UNIT VIAL) 5,000 unit TID SQ 09/28/24 09:00 10/28/24 08:59 Hydromorphone HCl (DiLAUDid 0.5MG INJ) 0.5 mg Q4H PRN IV SEVERE PAIN (7-10) IF NPO 09/28/24 07:00 10/03/24 06:59 Lactulose (Constulose 20gm/ 30ml Udcup) 20 gm BID PRN PO CONSTIPATION 09/28/24 07:00 10/28/24 06:59 Nitroglycerin (Nitrostat) 0.4 mg PROTOCOL PRN SL CHEST PAIN 09/28/24 07:00 10/28/24 06:59 Ondansetron HCl (zoFRAN 4MG INJ) 4 mg Q6H PRN IV NAUSEA/VOMITING 09/28/24 07:00 10/28/24 06:59 Sodium Chloride 1,000 ml @ 100 mls/hr Q10H IV 09/28/24 07:00 10/28/24 06:59 09/28/24 07:42 100 MLS/HR DIAGNOSTICS / RADIOLOGY: [ ] ASSESSMENT: Small bowel obstruction secondary to incarcerated small bowel through ventral hernia, POA Dehydration secondary to recurrent vomiting, improving Lactic acidosis secondary to incarcerated hernia Hypertension 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 Dyslipidemia Normocytic anemia Colon cancer s/p hemicolectomy (09/12/24) PLAN: - Keep NPO - Place NG tube to intermittent suction - Strict I&O - Start NS @ 100 cc/hr - PRN medication for pain management - Repeat lactic acid at 1300 - Heparin for DVT prophylaxis - Colorectal surgery consulted, appreciate recommendations Disposition: Pending colorectal surgery recommendations, improvement in clinical status VINAY CUADRA MD Sep 28, 2024 09:16
[2024-09-28] MEDS ORDERED: ceFEPime HCL 2 GM VIAL IVPB SCH (09:30)
[2024-09-28] MEDS: ceFEPime HCL 2 GM VIAL IVPB ONE (09:30)
[2024-09-28] MEDS ORDERED: BUPIvacaine/PF 0.5% 30ML VIAL ONE (09:34)
[2024-09-28] MEDS: FAMOTIDINE 20MG VIAL IV ONE (09:52)
[2024-09-28] MEDS ORDERED: ketaMINE 50MG/ML SYRINGE 50 MG/ML DISP.SYRIN ONE (09:53)
[2024-09-28] MEDS ORDERED: FENTanyl CITRate PF 50 MCG/1 ML 2ML VIAL ONE (09:55)
[2024-09-28] MEDS ORDERED: LIDOCAINE PF 100MG/5ML (2%) SYRINGE 5ML ONE (09:55)
[2024-09-28] MEDS ORDERED: proPOFol 10 MG/ML 20ML VIAL IV ONE (09:55)
[2024-09-28] MEDS ORDERED: rocuRONium bROMide 10MG/1ML 5ML VL ONE (09:55)
--- NOTE | 2024-09-28 10:07 | EKG ---
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
[2024-09-28] MEDS ORDERED: dexaMETHasone SOD PHOSPHATE 10MG/ML 1ML VIAL ONE (10:15)
[2024-09-28] MEDS ORDERED: ondanSETRON 4MG INJ ONE (10:15)
[2024-09-28] MEDS: ceFAZolin SODIUM 2 GM VIAL IVPB ONE (10:37)
[2024-09-28] MEDS ORDERED: NEOSTIGMINE METHYLSULFATE 1MG/ML IV ONE (10:40)
[2024-09-28] MEDS ORDERED: GLYCOPYRROLATE 0.2 MG/ML 5 ML VIAL ONE (10:40)
[2024-09-28] MEDS: metRONIDazole 500MG/100ML BAG 100 ML ONE (10:47)
[2024-09-28] MEDS ORDERED: ePHEDrine SULFate 50 MG/ML AMPULE ONE (11:51)
--- NOTE | 2024-09-28 13:27 | OP ---
Operative Note: DATE OF PROCEDURE: 09/28/24 SURGEON: SERVANDO PAREDES MD MANAGER NEW PRODUCT: Faisal Paredes MD PA-C ANESTHESIA: General and local ANESTHESIOLOGIST/BALANCE BRIDGE ASSEMBLER: [facility] anesthesia team PREOPERATIVE DIAGNOSIS: Incarcerated small bowel/incisional hernia, small bowel obstruction POSTOPERATIVE DIAGNOSIS: As above. SYNOPSIS: Partial small bowel resection with anastomosis and repair of iatrogenic gastrotomy performed, drains placed, EGD with therapeutic decompression PROCEDURE: 1. Diagnostic laparoscopy - Robotic assisted 2. Partial small bowel resection with primary anastomosis 3. Primary repair of incisional hernia (no mesh due to contamination presence) 4. Repair iatrogenic gastrotomy 5. EGD with therapeutic decompression of gastric contents 6. Intraabdominal drain placement ESTIMATED BLOOD LOSS: min, <30cc INDICATIONS: SBO due to incarcerated small intestine DESCRIPTION OF PROCEDURE: After standard precautions and preparations were undertaken a Veress needle and optical trocar were used to enter the abdominal cavity. All other instruments were placed under direct vision. The robotic system was docked in the standard fashion. During the placement of the trocars it was recognized that the initial trocar placement and Veress needle were into the inflated stomach. This was recognized immediately in the stomach was decompressed and all other instruments were placed under direct vision with no signs of injury to any other structures. Despite the patient's NG tube placement the stomach was fully inflated with air and debris. The EGD scope was utilized to therapeutically decompress the st omach and ensure proper placement of the NG tube. Several 100 cc of fluid and debris were removed from the GI tract. The gastrotomy from the trocar as well as a Veress needle was repaired with absorbable suture. We moved on with the remainder of the case. The right lower quadrant incisional hernia was recognized immediately and the bowel was attempted to be reduced into the abdominal cavity. It would not come into the abdominal cavity despite significant force. The hole was widened with a attempts to cut the tissue away and freed into the peritoneal cavity and this could not be safely or easily accomplished. A linear stapler was used to divide the bowel proximally and distally and a primary anastomosis was made in a [id number] fashion. The enterotomy made by the stapler was hence on closed in two layers. We then more aggressively focused on removing the incarcerated small bowel. Eventually we are able to get this piece freed up and removed it in an Endo- Catch bag from the abdominal cavity. The right lower quadrant incision where the bowel had herniated was copiously irrigated and then closed at the fascia utilizing a suture Passer as well as anterior suture from above. This particular wound was packed with iodoform gauze and left open at the skin edges. The abdomen was irrigated with 3 L of normal saline and drains were placed in both the left upper quadrant area of the stomach repairs as well as along the right pericolic gutter near the area of the small bowel resection and anastomosis. The patient tolerated the procedure well and was prepared for extubation and transferred to PACU in stable condition. The counts were verified including needles and sponges prior to ending the case. SERVANDO PAREDES MD Sep 28, 2024 13:27
--- NOTE | 2024-09-28 13:55 | NUR ---
PATIENT ARRIVED BACK TO ROOM, DROWSY, RESPONSE TO COMMANDS. NGT CONNECTED BACK TO LOW INTERMITTED SUCTION. AT BEDSIDE, SURGICAL SITES CLEAN AND DRY. LEFT DRAIN WITH 40ML. BLOOD PRESSURE 118/58, HEART RATE 58, AND 100% ON 3 L NASAL CANULA.
--- NOTE | 2024-09-28 14:00 | HMCIMG ---
Exam Type: CHEST 1VW Clinical Information: CREPITUS POST-OP Comparison: None Findings: Extensive chest wall emphysema. The lungs are clear of infiltrates. The heart is normal in size. The bony and soft tissue structures of the chest are unremarkable. Impression: Clear lungs. Extensive chest wall emphysema.
[2024-09-28] MEDS: 0.9%NACL 1000ML 2,000 ML IV SCH (14:25)
--- NOTE | 2024-09-28 15:06 | NUR ---
DCP Patient status post abdominal surgery for small bowel obstruction, sedated and sleeping. Magdalena Lewis, Spouse [phone] responded for the patient. Magdalena Lewis, Spouse [phone] states lives with her in a mobile home with three step entrance and walk in shower with a bench. States patient is retired, remains independent and drives self. States he was able to complete ADL's before illness. States he has a cane, a regular walker and a walker with a seat. Denies home health services, home care provider or dialysis. PCP - Alessandro De La Fuente MD Pharmacy - [facility]. Upon discharge, Magdalena Lewis, Spouse [phone] and assist with care, as needed. Addendum: 09/28/24 at 1510 by HANK SHORT RN CM Amended: Links added.
--- NOTE | 2024-09-28 16:00 | NUR ---
PATIENT IS ALERT AND ORIENTED, LAYING IN BED WITHOUT ANY DISCOMFORT. AT BEDSIDE. INSTRUCTED PATIENT AND , HE IS PENDING TO VOID.
--- NOTE | 2024-09-28 16:45 | NUR ---
BLADDER SCAN PATIENT ZERO URINE .
--- NOTE | 2024-09-28 18:55 | NUR ---
REPORTED GIVEN TO NIGHT NURSE. REPORT GIVEN, PATIENT PENDING TO VOID BY 1904.
--- NOTE | 2024-09-28 21:12 | NUR ---
NOTE MADE DR SERVANDO PAREDES AWARE PT HAS NOT HAD POST VOID AFTER TORREZ REMOVAL BLADDER SCAN SHOWS NO URINE IN THE BLADDER, PT ALSO NOTED TO HAVE SUB CU EMPHYSEMA TO CHEST AREA, LOWER ABD AND UPPER THIGHS. VITALS ARE STABLE AND PATIENT IS NOT CURRENTLY C/O ANY DISCOMFORT. PER DR PAREDES SUB CU EMPHYSEMA IS EXPECTED, NOT WORRIED ABOUT THAT. REGARDING URINE OUTPUT IF VITALS REMAIN STABLE THEN JUST GIVE PT MORE TIME AND RESCAN THE BLADDER IN ABOUT 3 TO 4 HOURS. IF HE IS LOW BP OR FAST HEART RATE THEN GIVE HIM A BOLUS OF NORMAL SALINE AND RE-EXAMINE THE BLADDER AFTER BOLUS IS COMPLETE.
[2024-09-28] MEDS: atorVAStatin 40 MG TABLET PO SCH (22:02)
[2024-09-29] VITALS: BP 135/65; PULSE 71; RESP 16; TEMP 98.4
--- NOTE | 2024-09-29 03:36 | NUR ---
BLADDER SCAN BLADDER SCAN REPEATED NO URINE NOTED IN BLADDER, NO DISTENTION NOTED VITALS WNL PT DENIES ANY DISCOMFORT WILL CONTINUE TO MONITOR.
[2024-09-29 04:00] VITALS: BP 138/66; PULSE 75; RESP 20; TEMP 98.6
[2024-09-29 04:14] LABS: BASOPHILS # (AUTO) 0.01 K/uL (0.00-0.20); BASOPHILS % (AUTO) 0.1 % (0.0-5.0); HEMATOCRIT 28.4 % (42-54); IMMATURE GRANULOCYTE ABSOLUTE 0.05 K/uL (0-1); LYMPHOCYTES # (AUTO) 0.4 K/uL (1.0-4.8); LYMPHOCYTES % (AUTO) 3.2 % (21.0-51.0); MEAN CORPUSCULAR HEMOGLOBIN 31.3 pg (27.0-33.0); MEAN CORPUSCULAR VOLUME 97.6 fL (79-99); MONOCYTES # (AUTO) 0.4 K/uL (0.1-1.0); MONOCYTES % (AUTO) 2.9 % (3.0-13.0); NEUTROPHILS # (AUTO) 12.4 K/uL (1.8-7.7); NEUTROPHILS % (AUTO) 93.4 % (40.0-77.0); PLATELET COUNT (AUTO) 320 K/uL (130-400); RED BLOOD CELL COUNT(AUTO) 2.91 MIL/uL (4.50-6.20); WHITE BLOOD COUNT (AUTO) 13.3 K/uL (4.8-10.8)
[2024-09-29 04:29] LABS: CREATININE 5.1 mg/dL (0.5-1.3); MAGNESIUM 1.4 mg/dL (1.80-2.40); PHOSPHORUS 4.2 mg/dL (2.5-4.9); POTASSIUM 4.2 mmol/L (3.5-5.1)
[2024-09-29 07:58] LABS: ABG BASE EXCESS -11.3 mmol/L (-2.0-3.0); ABG HCO3 11.7 mmol/L (21.0-28.0); ABG OXYGEN SATURATION 96.1 % (94.0-98.0); ABG PCO2 19 mmHg (35-48); ABG PH 7.404 (7.350-7.450); CARBON MONOXIDE 0.3 % (0.5-1.5); HHb 3.8; PO2, ARTERIAL BG 90.8 mmHg (83.0-108.0); VENT MODE, BG 1 L NC (ROOM AIR)
[2024-09-29 08:00] VITALS: BP 134/62; PULSE 77; RESP 18; TEMP 97.9; O2SAT 100
[2024-09-29] MEDS: ceFEPime HCL 1 GM VIAL IVPB SCH (09:14)
--- NOTE | 2024-09-29 09:28 | PN ---
GENERAL SURGERY PROGRESS NOTE Date/Time Patient Seen: [ ] Problem List: Interval History: This is an 83yo male who presented with incarcerated small bowel/incisional hernia, small bowel obstruction. He underwent partial small bowel resection with anastomosis and repair of iatrogenic gastrotomy, drains were placed and EGD performed for decompression. Patient seen at bedside with NGT to LIS. Incisions clean, dry and intact. Dressings changed today with minimal drainage. Two drains in place with serosanguineous output. He had eructation today, otherwise hypoactive bowel sounds and no flatus. Current Medications Medications (Trade) Dose Ordered Sig/Juanita Route Start Time Stop Time Status Last Admin Dose Admin Aspirin (Aspirin 81mg Chew Tab) 81 mg DAILY PO 09/28/24 09:00 10/28/24 08:59 Atorvastatin Calcium (LIPItor 40MG) 40 mg HS PO 09/28/24 21:00 10/28/24 20:59 09/28/24 22:02 40 MG Benzocaine (Hurricaine/ [place] 20% [place]) 50 mcg ONCE TP 09/27/24 16:30 09/28/24 07:12 DC 09/27/24 18:40 1 MCG Carvedilol (Coreg 12.5MG) 12.5 mg BID PO 09/28/24 09:00 10/28/24 08:59 09/28/24 22:02 12.5 MG Cefepime HCl (MAXipime 1 GM vial) 1 gm Q24H IVPB 09/29/24 09:30 10/09/24 09:29 Cefepime HCl (MAXipime 2 gm vial) 2 gm Q8H IVPB 09/28/24 09:30 09/28/24 09:15 DC EZETIMIBE (Zetia) 10 mg DAILY PO 09/28/24 09:00 10/28/24 08:59 Famotidine (Pepcid 20mg Tab) 20 mg Q48H PO 09/28/24 09:00 10/28/24 08:59 Heparin Sodium (Porcine) (HEParin 5,000 UNIT VIAL) 5,000 unit TID SQ 09/28/24 09:00 10/28/24 08:59 09/28/24 22:04 5,000 UNIT Sodium Chloride 1,000 ml @ 150 mls/hr Q6H40M IV 09/28/24 07:00 10/28/24 06:59 09/29/24 03:14 100 MLS/HR Sodium Chloride 2,000 ml @ 0 mls/hr Q0M IV 09/28/24 14:30 10/28/24 14:29 09/28/24 17:42 0 MLS/HR Physical Examination: GENERAL: [No acute distress.] HEAD: [Normal with no signs of head trauma.] EYES: [PERRLA, EOMI, conjunctiva and sclera normal.] ENT: [Hearing grossly intact, normal oropharynx.] NECK: [Supple without JVD. There is no tenderness, lymphadenopathy, or masses. No thyromegaly. Normal carotid upstrokes without bruits.] LUNGS: [Clear breath sounds bilaterally. There are right basilar rales one third of the way up the chest. No wheezes, or rhonchi.] HEART: [Normal rate and rhythm. Normal S1 and S2 without mumurs, gallop or rub.] VASC: [Peripheral pulses +2 bilaterally.] ABD: [Bowel sounds normal, soft, nontender, no masses, no organomegaly. No audible bruits.] : [Not examined] LYMPH: [No lymphadenopathy noted.] EXT: [No clubbing, cyanosis or edema.] SKIN: [No rashes or lesions noted.] NEURO: [Awake, alert, and oriented x3. No focal sensory or strength deficits noted.] Vital Signs (last 8hr) Date Time Temp Pulse Resp B/P (MAP) Pulse Ox O2 Delivery O2 Flow Rate FiO2 09/29/24 09:00 134/62 09/29/24 08:00 97.9 77 18 134/62 99 Nasal Cannula 2.0 24 09/29/24 04:00 98.6 75 20 138/66 99 Nasal Cannula 1.0 Laboratory: [ ] Hematology Labs: Test 09/29/24 03:55 Range/Units White Blood Count 13.3 #H 4.8-10.8 K/uL Red Blood Count 2.91 L 4.50-6.20 MIL/uL Hemoglobin 9.1 L 14.0-18.0 g/dL Hematocrit 28.4 L 42-54 % Mean Corpuscular Volume 97.6 79-99 fL Mean Corpuscular Hemoglobin 31.3 27.0-33.0 pg Mean Corpuscular Hemoglobin Concent 32.0 32.0-36.0 g/dL Red Cell Distribution Width 14.0 11.0-15.5 % Platelet Count 320 130-400 K/uL Mean Platelet Volume 9.8 7.5-10.5 fL Immature Granulocyte % (Auto) 0.4 0-1 % Neutrophils (%) (Auto) 93.4 H 40.0-77.0 % Lymphocytes (%) (Auto) 3.2 L 21.0-51.0 % Monocytes (%) (Auto) 2.9 L 3.0-13.0 % Eosinophils (%) (Auto) 0.0 0.0-8.0 % Basophils (%) (Auto) 0.1 0.0-5.0 % Neutrophils # (Auto) 12.4 H 1.8-7.7 K/uL Lymphocytes # (Auto) 0.4 L 1.0-4.8 K/uL Monocytes # (Auto) 0.4 0.1-1.0 K/uL Eosinophils # (Auto) 0.00 0.00-0.70 K/uL Basophils # (Auto) 0.01 0.00-0.20 K/uL Absolute Immature Granulocyte (auto 0.05 0-1 K/uL Nucleated Red Blood Cells 0.0 0.0-0.19 % White Cell Morphology Comment See comments Chemistry Labs: Test 09/29/24 03:55 09/28/24 08:41 09/28/24 07:20 09/27/24 16:00 Range/Units Sodium Level 138 136-145 mmol/L Potassium Level 4.2 3.5-5.1 mmol/L Chloride Level 104 101-111 mmol/L Carbon Dioxide Level 16 L 21-32 mmol/L Blood Urea Nitrogen 78 *H 7-18 mg/dL Creatinine 5.1 H 0.5-1.3 mg/dL Glomerular Filtration Rate Calc 11 >90 mL/min Random Glucose 123 H 70-105 mg/dL Total Calcium 6.7 L 8.5-10.1 mg/dL Phosphorus Level 4.2 2.5-4.9 mg/dL Magnesium Level 1.40 L 1.80-2.40 mg/dL Whole Blood Glucose 98 70-110 MG/DL Lactic Acid Level 1.8 0.8-2.5 mmol/L Total Bilirubin 0.6 0.2-1.0 mg/dL Aspartate Amino Transf (AST/SGOT) 16 10-37 U/L Alanine Aminotransferase (ALT/SGPT) 6 L 12-78 U/L Alkaline Phosphatase 90 50-136 U/L B-Type Natriuretic Peptide 63 0-100 pg/mL Total Protein 5.7 L 6.0-8.3 g/dL Albumin 2.3 L 3.5-5.0 g/dL Procalcitonin 0.60 H 0.05-0.5 ng/mL Thyroid Stimulating Hormone (TSH) 1.05 0.36-3.74 uIU/mL Total Creatine Kinase 52 21-232 U/L Troponin I High Sensitivity 11.8 4-75 ng/L Coagulation Labs: Test 09/27/24 16:00 Range/Units Prothrombin Time 14.2 H 9.6-11.6 SEC Prothromb Time International Ratio 1.38 H 0.85-1.15 Activated Partial Thromboplast Time 30.2 26.3-35.5 SEC Diagnostics / Radiology: [Copy/Paste Echos/Imaging Report here] Impression and Plan: NGT to LIS until he has bowel function Drains to be removed possibly one on Wednesday and one the following day Wick dressing can be pulled 1 inch daily starting 2 days post op Appreciate assistance from hospitalist and nephrology KATELYN BANUELOS Sep 29, 2024 09:27
[2024-09-29] MEDS: SODIUM BICARB 8.4% 50ML SYRING 150 MEQ in DEXTROSE 5%-WATER 1,000 ML IVP SCH (10:20)
--- NOTE | 2024-09-29 10:28 | PN ---
[facility] PROGRESS NOTE Date of Service: Sep 29, 2024 Time of Service: 10:13 SUBJECTIVE: 09/29 patient seen at bedside, no acute events overnight. He is status post exploratory laparotomy with repair of a herniated and strangulated bowel my postop day one. There appeared to be a perforation of the stomach during insertion of the 1st trocar due to the obstruction and the patient's still be significantly distended, the defect was identified and, the stomach was decompressed via EGD and then the defect was repaired. The remainder of the procedure was completed without complications. The patient tolerated the procedure well, see the op note for more details. Postoperatively the patient has had decreased urine output, he has had multiple bladder scans that have not shown significant urine within the bladder. He has had a proximally 290 cc output from his MARITO drain. We will increase his IV fluids to 150 cc/hour and recheck at approximately mid day. If he has not had any significant urine output but continues to have appreciable output from his MARITO drains we will consider sending for a body fluid creatinine to assess for a transected ureter. He has been afebrile, hemodynamically stable saturating well on 2 L nasal cannula, hemoglobin decreased from 9.5 down to 9.1, WBC increased from 9.1 up to 13.3, creatinine improved from 6.1 down to 5.1, CO2 decreased from 26 down to 16, an ABG+ was ordered and is consistent with anion gap metabolic acidosis compensated by respiratory alkalosis, lactic acid is barely elevated, these findings may suggest underlying renal tubular acidosis, patient has been initiated on bicarb drip, remainder of his labs are relatively unremarkable. Further care per colorectal surgery REVIEW OF SYSTEMS 12 point ROS negative unless noted in HPI PHYSICAL EXAM GENERAL APPEARANCE: The patient is awake, alert, and oriented, in no acute cardiopulmonary distress. NEUROLOGICAL: Cranial nerves II-XII grossly intact. Motor is 5/5 in bilateral upper and lower extremities proximal to distal. No sensory deficits. HEENT: Face is symmetric. Pupils are equal and reactive. Extraocular movements are intact. NECK: Supple. No JVD. No thyromegaly. No submental, submandibular, pre-/postauricular, occipital or supraclavicular lymphadenopathy. CHEST: Normal chest expansion. No Telemetry. LUNGS: Absence of any rales, rhonchi or any wheezing. CARDIOVASCULAR: Regular. S1 and S2 normal. No appreciable rubs, murmurs or gallops. ABDOMEN: Soft, nontender, and nondistended. There is no rebound, voluntary guarding, or rigidity. : Deferred. No Catherine. EXTREMITIES: Non-edematous and not cyanotic. No clubbing. Good capillary refill. SKIN: No skin breakdown. Vital Signs (last 8hr) Date Time Temp Pulse Resp B/P (MAP) Pulse Ox O2 Delivery O2 Flow Rate FiO2 09/29/24 09:00 134/62 09/29/24 08:00 97.9 77 18 134/62 99 Nasal Cannula 2.0 24 09/29/24 04:00 98.6 75 20 138/66 99 Nasal Cannula 1.0 LABS: Laboratory: Test 09/29/24 07:56 09/29/24 03:55 09/28/24 08:41 09/28/24 07:20 Range/Units Blood Gas Specimen Type Arterial Arterial Blood pH 7.404 7.350-7.450 Arterial Blood Partial Pressure CO2 19 *L 35-48 mmHg Arterial Blood Partial Pressure O2 90.8 83.0-108.0 mmHg Arterial Blood HCO3 11.7 L 21.0-28.0 mmol/L Arterial Blood Oxygen Saturation 96.1 94.0-98.0 % Arterial Blood Base Excess -11.3 L -2.0-3.0 mmol/L Hemoglobin (Blood Gas) 9.4 L 13.5-17.5 g/dL Sodium (Blood Gas) 139 136-145 MMOL/L Bedside Potassium (Blood Gas) 4.2 3.4-4.5 MMOL/L Bedside Chloride (Blood Gas) 111 H 98-107 MMOL/L Bedside Glucose (Blood Gas) 120 H 65-95 MG/DL Bedside Ionized Calcium (Blood Gas) 0.95 L 1.15-1.33 MMOL/L Bedside Lactic Acid (Blood Gas) 1.44 H 0.36-0.75 MMOL/L Blood Gas Temperature 37.0 35.5-37.0 CELSIUS Blood Gas Flow-by 1.00 0.00-15.00 L/min Blood Gas Vent Mode 1 L NC ROOM AIR FiO2 24.0 % Blood Gas Specimen Comment RR ROSARIO CORDOBA White Blood Count 13.3 #H 4.8-10.8 K/uL Red Blood Count 2.91 L 4.50-6.20 MIL/uL Hemoglobin 9.1 L 14.0-18.0 g/dL Hematocrit 28.4 L 42-54 % Mean Corpuscular Volume 97.6 79-99 fL Mean Corpuscular Hemoglobin 31.3 27.0-33.0 pg Mean Corpuscular Hemoglobin Concent 32.0 32.0-36.0 g/dL Red Cell Distribution Width 14.0 11.0-15.5 % Platelet Count 320 130-400 K/uL Mean Platelet Volume 9.8 7.5-10.5 fL Immature Granulocyte % (Auto) 0.4 0-1 % Neutrophils (%) (Auto) 93.4 H 40.0-77.0 % Lymphocytes (%) (Auto) 3.2 L 21.0-51.0 % Monocytes (%) (Auto) 2.9 L 3.0-13.0 % Eosinophils (%) (Auto) 0.0 0.0-8.0 % Basophils (%) (Auto) 0.1 0.0-5.0 % Neutrophils # (Auto) 12.4 H 1.8-7.7 K/uL Lymphocytes # (Auto) 0.4 L 1.0-4.8 K/uL Monocytes # (Auto) 0.4 0.1-1.0 K/uL Eosinophils # (Auto) 0.00 0.00-0.70 K/uL Basophils # (Auto) 0.01 0.00-0.20 K/uL Absolute Immature Granulocyte (auto 0.05 0-1 K/uL Nucleated Red Blood Cells 0.0 0.0-0.19 % White Cell Morphology Comment See comments Sodium Level 138 136-145 mmol/L Potassium Level 4.2 3.5-5.1 mmol/L Chloride Level 104 101-111 mmol/L Carbon Dioxide Level 16 L 21-32 mmol/L Blood Urea Nitrogen 78 *H 7-18 mg/dL Creatinine 5.1 H 0.5-1.3 mg/dL Glomerular Filtration Rate Calc 11 >90 mL/min Random Glucose 123 H 70-105 mg/dL Total Calcium 6.7 L 8.5-10.1 mg/dL Phosphorus Level 4.2 2.5-4.9 mg/dL Magnesium Level 1.40 L 1.80-2.40 mg/dL Whole Blood Glucose 98 70-110 MG/DL Lactic Acid Level 1.8 0.8-2.5 mmol/L Total Bilirubin 0.6 0.2-1.0 mg/dL Aspartate Amino Transf (AST/SGOT) 16 10-37 U/L Alanine Aminotransferase (ALT/SGPT) 6 L 12-78 U/L Alkaline Phosphatase 90 50-136 U/L B-Type Natriuretic Peptide 63 0-100 pg/mL Total Protein 5.7 L 6.0-8.3 g/dL Albumin 2.3 L 3.5-5.0 g/dL Procalcitonin 0.60 H 0.05-0.5 ng/mL Thyroid Stimulating Hormone (TSH) 1.05 0.36-3.74 uIU/mL Test 09/28/24 01:40 09/27/24 16:00 Range/Units Urine Color YELLOW YELLOW Urine Appearance CLEAR CLEAR Urine pH 5.0 5.0-8.0 Urine Specific [place] 1.022 1.001-1.031 Urine Protein 70 H NEGATIVE mg/dL Urine Glucose (UA) NEGATIVE NEGATIVE mg/dL Urine Ketones NEGATIVE NEGATIVE mg/dL Urine Occult Blood NEGATIVE NEGATIVE Urine Nitrate NEGATIVE NEGATIVE Urine Bilirubin NEGATIVE NEGATIVE mg/dL Urine Urobilinogen 0.2 0.2-1.0 mg/dL Urine Leukocyte Esterase NEGATIVE NEGATIVE Joyce/uL Urine RBC 0-1 0-1 /HPF Urine WBC 2-5 H 0-1 /HPF Urine Bacteria RARE None Seen /HPF Urine Hyaline Casts 2-5 H 0-1 /LPF /LPF Urine Other Casts 6 None Seen /LPF Prothrombin Time 14.2 H 9.6-11.6 SEC Prothromb Time International Ratio 1.38 H 0.85-1.15 Activated Partial Thromboplast Time 30.2 26.3-35.5 SEC Total Creatine Kinase 52 21-232 U/L Troponin I High Sensitivity 11.8 4-75 ng/L Current Medications Medications (Trade) Dose Ordered Sig/Juanita Route PRN Reason Start Time Stop Time Status Last Admin Dose Admin Acetaminophen (TYLenol 325MG TAB) 650 mg Q4H PRN PO MILD PAIN (1-3) 09/28/24 07:00 10/28/24 06:59 Acetaminophen (TYLenol 325MG TAB) 650 mg Q6H PRN PO TEMPERATURE GREATER THAN 101.5 09/28/24 07:00 10/28/24 06:59 Acetaminophen/ Hydrocodone Bitart (NORco 5/325MG) 1 tab Q4H PRN PO MODERATE PAIN (4-6) 09/28/24 07:00 10/03/24 06:59 Acetaminophen/ Hydrocodone Bitart (NORco 5/325MG) 2 tab Q4H PRN PO SEVERE PAIN (7-10) 09/28/24 07:00 10/03/24 06:59 Al Hydroxide/Mg Hydroxide (MAALox PLUS 30ML) 30 ml Q6H PRN PO INDIGESTION 09/28/24 07:00 10/28/24 06:59 Aspirin (Aspirin 81mg Chew Tab) 81 mg DAILY PO 09/28/24 09:00 10/28/24 08:59 Atorvastatin Calcium (LIPItor 40MG) 40 mg HS PO 09/28/24 21:00 10/28/24 20:59 09/28/24 22:02 40 MG Benzocaine (Hurricaine/ [place] 20% [place]) 50 mcg ONCE TP 09/27/24 16:30 09/28/24 07:12 DC 09/27/24 18:40 1 MCG Carvedilol (Coreg 12.5MG) 12.5 mg BID PO 09/28/24 09:00 10/28/24 08:59 09/28/24 22:02 12.5 MG Cefepime HCl (MAXipime 1 GM vial) 1 gm Q24H IVPB 09/29/24 09:30 10/09/24 09:29 09/29/24 09:14 1 GM Cefepime HCl (MAXipime 2 gm vial) 2 gm Q8H IVPB 09/28/24 09:30 09/28/24 09:15 DC Diphenhydramine HCl (BENAdryl CAP) 25 mg Q4H PRN PO MILD ITCHING/RASH 09/28/24 07:00 10/28/24 06:59 Diphenhydramine HCl (BENAdryl INJ) 25 mg Q6H PRN IV SEVERE ITCHING/RASH 09/28/24 07:00 10/28/24 06:59 EZETIMIBE (Zetia) 10 mg DAILY PO 09/28/24 09:00 10/28/24 08:59 Famotidine (Pepcid 20mg Vial) 20 mg BID PRN IV NAUSEA/VOMITING 09/28/24 07:00 09/28/24 07:17 DC Famotidine (Pepcid 20mg Tab) 20 mg Q48H PO 09/28/24 09:00 10/28/24 08:59 Guaifenesin/ Dextromethorphan (RobiTUSSin DM 200/20MG 10ML) 10 ml Q4H PRN PO COUGH 09/28/24 07:00 10/28/24 06:59 Heparin Sodium (Porcine) (HEParin 5,000 UNIT VIAL) 5,000 unit TID SQ 09/28/24 09:00 10/28/24 08:59 09/29/24 09:28 5,000 UNIT Hydromorphone HCl (DiLAUDid 0.5MG INJ) 0.5 mg Q4H PRN IV SEVERE PAIN (7-10) IF NPO 09/28/24 07:00 10/03/24 06:59 Lactulose (Constulose 20gm/ 30ml Udcup) 20 gm BID PRN PO CONSTIPATION 09/28/24 07:00 10/28/24 06:59 Nitroglycerin (Nitrostat) 0.4 mg PROTOCOL PRN SL CHEST PAIN 09/28/24 07:00 10/28/24 06:59 Ondansetron HCl (zoFRAN 4MG INJ) 4 mg Q6H PRN IV NAUSEA/VOMITING 09/28/24 07:00 10/28/24 06:59 Sodium Bicarbonate 150 meq/Dextrose 1,150 ml @ 150 mls/hr Q7H40M IVP 09/29/24 10:00 10/29/24 09:59 Sodium Chloride 1,000 ml @ 50 mls/hr Q20H IV 09/28/24 07:00 10/28/24 06:59 09/29/24 03:14 100 MLS/HR Sodium Chloride 2,000 ml @ 0 mls/hr Q0M IV 09/28/24 14:30 10/28/24 14:29 09/28/24 17:42 0 MLS/HR DIAGNOSTICS / RADIOLOGY: [ ] ASSESSMENT: Small bowel obstruction secondary to incarcerated small bowel through ventral hernia, POA Dehydration secondary to recurrent vomiting, improving Post operative anion gap metabolic acidosis with respiratory compensation 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 Decreased urine output Hypertension 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 Dyslipidemia Normocytic anemia Colon cancer s/p hemicolectomy (09/12/24) PLAN: - Keep NPO, diet to be managed by surgery - Keep NG tube to intermittent suction - MARITO drains to be managed by surgery - Start bicarb drip per nephrology - Strict I&O - If urine output does not improve by midday, will order bladder scan and in & out catheter - Increase NS to 150 cc/hr - PRN medication for pain management - Repeat lactic acid at 1300 - Heparin for DVT prophylaxis - Colorectal surgery consulted, appreciate recommendations - Nephrology consulted, appreciate recommendations - PT to evaluate patient Disposition: Pending post op course, improvement in clinical status VINAY CUADRA MD Sep 29, 2024 10:28
--- NOTE | 2024-09-29 11:04 | CONS ---
CONSULTATION REFERRING PHYSICIAN: Deejay Dunham MD REASON FOR CONSULTATION: Renal failure. HISTORY OF PRESENT ILLNESS: An 83-year-old male with history of known colon cancer. The patient is status post hemicolectomy. The patient presented to the hospital with abdominal pain and distention. The patient with significant nausea, vomiting. Laboratory values revealed an elevated BUN and creatinine above his baseline. The patient's workup was consistent with bowel obstruction and the patient did undergo surgery. The patient's creatinine did stabilize overnight. He remains on the IV hydration. Urine output has been marginal and the patient is being seen in consultation for all the above. PAST MEDICAL HISTORY: Hypertension, renal failure, hypercholesterolemia, colon cancer. PAST SURGICAL HISTORY: Hemicolectomy. SOCIAL HISTORY: No alcohol or tobacco use. He lives independently. FAMILY HISTORY: There is no renal disease in the family. ALLERGIES: There are no allergies. MEDICATIONS: All noted. REVIEW OF SYSTEMS: GENERAL: He is complaining of pain. HEENT: No change in vision. No change in hearing. CARDIOVASCULAR: There is no current chest pain or palpitations. PULMONARY: No shortness of breath. GASTROINTESTINAL: As described above. MUSCULOSKELETAL: Complains of weakness. NEUROLOGIC: No seizures or focal deficits. PSYCHIATRIC: No history of hallucinations, psychosis. ENDOCRINE: He denies any diabetes mellitus or thyroid disease. HEME: History of anemia, history of cancer. OBJECTIVE: VITAL SIGNS: Blood pressure 134/62, pulse 70s, he is afebrile. GENERAL: He is a chronically ill male, elderly, lying in bed on medical floor. HEENT: Atraumatic. Pupils equal, roving to light. Oropharynx is without exudate. Nares clear. NECK: There is no JVP. There is no thyromegaly, no mass. CARDIOVASCULAR: Regular. There is no S3, S4 gallop. LUNGS: Coarse with equal thoracic movement. ABDOMEN: Soft, nondistended, nontender. EXTREMITIES: Reveal no clubbing, no cyanosis. NEUROLOGICAL: He is awake. He is alert. He is oriented. SKIN: Reveals no rash or nodules. BACK: There is no CVA tenderness, no back deformities. LABORATORY DATA: Sodium 138, potassium 4.2, BUN 104, bicarbonate 16. ABG is noted. Hemoglobin 9.1, hematocrit 28. IMPRESSION: * Acute on chronic renal dysfunction. * Volume depletion. * Metabolic acidosis. * Bowel obstruction, status post surgery. PLAN: The patient presents with significant renal dysfunction. Creatinine is well above his baseline. The patient will be bolused with 2 L of saline. The patient does have significant metabolic acidosis. The patient will be started on a bicarb drip. We will continue to follow the patient closely. Workup is ongoing per surgical service and we will continue to follow the patient closely. The patient with multiple questions, all of which were all answered. All labs can be repeated in the morning. TID: [id number] RECEIPT: [id number]
[2024-09-29 12:00] VITALS: BP 130/63; PULSE 80; RESP 16; TEMP 97.9
--- NOTE | 2024-09-29 14:15 | NUR ---
Order received and spoke to patient. He refused PT today, spouse present in room. Bety nurse, notified. PT team to follow.
[2024-09-29 16:31] VITALS: BP 130/63; PULSE 77; RESP 16; TEMP 98.1
[2024-09-29 17:42] LABS: CREATININE,URINE RANDOM 121.8 mg/dL (30-135)
[2024-09-29 20:00] VITALS: BP 146/72; PULSE 75; RESP 19; TEMP 97.7; O2SAT 97
[2024-09-30 00:29] VITALS: BP 129/64; PULSE 82; RESP 18; TEMP 98.1
[2024-09-30 04:13] LABS: BASOPHILS # (AUTO) 0.01 K/uL (0.00-0.20); BASOPHILS % (AUTO) 0.1 % (0.0-5.0); HEMATOCRIT 26.6 % (42-54); IMMATURE GRANULOCYTE ABSOLUTE 0.07 K/uL (0-1); LYMPHOCYTES # (AUTO) 0.4 K/uL (1.0-4.8); LYMPHOCYTES % (AUTO) 3.4 % (21.0-51.0); MEAN CORPUSCULAR HEMOGLOBIN 30.9 pg (27.0-33.0); MEAN CORPUSCULAR HGB CONC 32.7 g/dL (32.0-36.0); MEAN CORPUSCULAR VOLUME 94.3 fL (79-99); MONOCYTES # (AUTO) 0.4 K/uL (0.1-1.0); MONOCYTES % (AUTO) 3.7 % (3.0-13.0); NEUTROPHILS # (AUTO) 10.7 K/uL (1.8-7.7); NEUTROPHILS % (AUTO) 92.2 % (40.0-77.0); PLATELET COUNT (AUTO) 360 K/uL (130-400); RED BLOOD CELL COUNT(AUTO) 2.82 MIL/uL (4.50-6.20); RED CELL DISTRIBUTION WIDTH 13.9 % (11.0-15.5); WHITE BLOOD COUNT (AUTO) 11.6 K/uL (4.8-10.8)
[2024-09-30 04:19] VITALS: BP 139/70; PULSE 86; RESP 19; TEMP 98.4
[2024-09-30 04:23] LABS: % IRON SATURATION 31.1 % (30-44); CREATININE 4.3 mg/dL (0.5-1.3); POTASSIUM 3.3 mmol/L (3.5-5.1)
[2024-09-30 08:00] VITALS: BP 129/63; PULSE 83; RESP 20; TEMP 98.1
--- NOTE | 2024-09-30 11:07 | PN ---
[facility] PROGRESS NOTE Date of Visit: Sep 30, 2024 Time of Visit: 11:04 Events / Notes: [Patient on POD 2 from robotic assisted diagnostic la with partial small bowel resection with primary anastomosis, primary repair of incisional hernia, repair of iatrogenic gastrotomy, EGD with therapeutic decompression of gastric content, and intraabdominal drain placement x 2. NO acute events overnight. VSS. WBC decreased from 13.3 to 11.6 this am. HGB 8.7, down from 9.1 yesterday. Examined at bedside. He is on O2 at 2l via NC. His respirations are unlabored. BBS clear. Abd is soft and not distended. Incisions are D&I continuous process rotary drum tanner. BS to upper abd but hypoactive to lower. 2 inches of wick packing removed and wound care done. BRIDGER to mid abdomen with 50 ml of serous output. BRIDGER to left upper abdomen with 70 ml of serous output at time of exam. Catherine cath with cyu. Poc discussed. Pt to assist with movement and ambulation. Patient and spouse agree. ] Review of Systems: CONSTITUTIONAL: No malaise or change in sensation of wellbeing. ENMT: No rhinorrhea, otorrhea, sinus pain, ear ache. CARDIOVASCULAR: No angina, palpitations, orthopnea or paroxysmal dyspnea. RESPIRATORY: No SOB. GASTROINTESTINAL: No abdominal pain, nausea, vomiting, diarrhea, hematemesis, melena or change in the patient's habitual bowel movements consistency/number. GENITOURINARY: No dysuria, hematuria or change in bladder continence. MUSCULOSKELETAL: No new muscle pain or decrease in muscular strength. No new joint swelling, redness or tenderness. SKIN: No new rash. Physical Exam: GEN: Awake, alert, oriented in person, time and place, and in no acute distress. HEENT: No rhinorrhea. Oral pharyngeal mucosa is pink, moist and within normal limits. Neck is supple CHEST: Inspection, palpation of the chest were unremarkable. Lung auscultation revealed normal breath sounds bilaterally. CARDIAC: PMI is within normal limits. Heart sounds are regular.. ABD: Soft, non-tender and not distended. No peritoneal signs on palpation. No organomegaly. Active bs to upper abd; Decreased bs to lower abdomen. BRIDGER drain to mid abdomen with 50 ml of serous output. Bridger drain to left side of abdomen with 70 ml of serous output. Catherine cath draining cyu via gravity. EXT: No cyanosis or clubbing. No edema. Scds in place. Homans negative. SKIN: Intact. No rashes. JOINTS: No evidence of synovitis or acute arthritis. NEURO: Alert and oriented to name, place and person. No focal motor deficits. Normal speech. Gait not assessedl. Strength is normal. Vital Signs (last 8hr) Date Time Temp Pulse Resp B/P (MAP) Pulse Ox O2 Delivery O2 Flow Rate FiO2 09/30/24 10:16 128/63 09/30/24 08:00 98.1 83 20 129/63 95 Nasal Cannula 1.0 22 09/30/24 04:19 98.4 86 19 139/70 96 Nasal Cannula 1.0 Laboratory: [ ] Laboratory: Test 09/30/24 03:42 09/29/24 17:17 09/29/24 13:45 09/29/24 07:56 Range/Units White Blood Count 11.6 H 4.8-10.8 K/uL Red Blood Count 2.82 L 4.50-6.20 MIL/uL Hemoglobin 8.7 L 14.0-18.0 g/dL Hematocrit 26.6 L 42-54 % Mean Corpuscular Volume 94.3 79-99 fL Mean Corpuscular Hemoglobin 30.9 27.0-33.0 pg Mean Corpuscular Hemoglobin Concent 32.7 32.0-36.0 g/dL Red Cell Distribution Width 13.9 11.0-15.5 % Platelet Count 360 130-400 K/uL Mean Platelet Volume 10.2 7.5-10.5 fL Immature Granulocyte % (Auto) 0.6 0-1 % Neutrophils (%) (Auto) 92.2 H 40.0-77.0 % Lymphocytes (%) (Auto) 3.4 L 21.0-51.0 % Monocytes (%) (Auto) 3.7 3.0-13.0 % Eosinophils (%) (Auto) 0.0 0.0-8.0 % Basophils (%) (Auto) 0.1 0.0-5.0 % Neutrophils # (Auto) 10.7 H 1.8-7.7 K/uL Lymphocytes # (Auto) 0.4 L 1.0-4.8 K/uL Monocytes # (Auto) 0.4 0.1-1.0 K/uL Eosinophils # (Auto) 0.00 0.00-0.70 K/uL Basophils # (Auto) 0.01 0.00-0.20 K/uL Absolute Immature Granulocyte (auto 0.07 0-1 K/uL Nucleated Red Blood Cells 0.0 0.0-0.19 % Sodium Level 139 136-145 mmol/L Potassium Level 3.3 L 3.5-5.1 mmol/L Chloride Level 104 101-111 mmol/L Carbon Dioxide Level 27 21-32 mmol/L Blood Urea Nitrogen 72 H 7-18 mg/dL Creatinine 4.3 H 0.5-1.3 mg/dL Glomerular Filtration Rate Calc 13 >90 mL/min Random Glucose 281 #H 70-105 mg/dL Total Calcium 5.9 *L 8.5-10.1 mg/dL Iron Level 24 #L 65-175 mcg/dL Total Iron Binding Capacity 77 L 250-450 mcg/dL Percent Iron Saturation 31.1 30-44 % Urine Random Creatinine 121.80 30-135 mg/dL Urine Random Sodium 20 L 40-220 mmol/l Body Fluid Creatinine 4.8 mg/dL Blood Gas Specimen Type Arterial Arterial Blood pH 7.404 7.350-7.450 Arterial Blood Partial Pressure CO2 19 *L 35-48 mmHg Arterial Blood Partial Pressure O2 90.8 83.0-108.0 mmHg Arterial Blood HCO3 11.7 L 21.0-28.0 mmol/L Arterial Blood Oxygen Saturation 96.1 94.0-98.0 % Arterial Blood Base Excess -11.3 L -2.0-3.0 mmol/L Hemoglobin (Blood Gas) 9.4 L 13.5-17.5 g/dL Sodium (Blood Gas) 139 136-145 MMOL/L Bedside Potassium (Blood Gas) 4.2 3.4-4.5 MMOL/L Bedside Chloride (Blood Gas) 111 H 98-107 MMOL/L Bedside Glucose (Blood Gas) 120 H 65-95 MG/DL Bedside Ionized Calcium (Blood Gas) 0.95 L 1.15-1.33 MMOL/L Bedside Lactic Acid (Blood Gas) 1.44 H 0.36-0.75 MMOL/L Blood Gas Temperature 37.0 35.5-37.0 CELSIUS Blood Gas Flow-by 1.00 0.00-15.00 L/min Blood Gas Vent Mode 1 L NC ROOM AIR FiO2 24.0 % Blood Gas Specimen Comment RR ROSARIO CORDOBA Test 09/29/24 03:55 Range/Units White Cell Morphology Comment See comments Phosphorus Level 4.2 2.5-4.9 mg/dL Magnesium Level 1.40 L 1.80-2.40 mg/dL Current Medications Medications (Trade) Dose Ordered Sig/Juanita Route PRN Reason Start Time Stop Time Status Last Admin Dose Admin Acetaminophen (TYLenol 325MG TAB) 650 mg Q4H PRN PO MILD PAIN (1-3) 09/28/24 07:00 10/28/24 06:59 Acetaminophen (TYLenol 325MG TAB) 650 mg Q6H PRN PO TEMPERATURE GREATER THAN 101.5 09/28/24 07:00 10/28/24 06:59 Acetaminophen/ Hydrocodone Bitart (NORco 5/325MG) 1 tab Q4H PRN PO MODERATE PAIN (4-6) 09/28/24 07:00 10/03/24 06:59 Acetaminophen/ Hydrocodone Bitart (NORco 5/325MG) 2 tab Q4H PRN PO SEVERE PAIN (7-10) 09/28/24 07:00 10/03/24 06:59 Al Hydroxide/Mg Hydroxide (MAALox PLUS 30ML) 30 ml Q6H PRN PO INDIGESTION 09/28/24 07:00 10/28/24 06:59 Aspirin (Aspirin 81mg Chew Tab) 81 mg DAILY PO 09/28/24 09:00 10/28/24 08:59 09/30/24 10:16 81 MG Atorvastatin Calcium (LIPItor 40MG) 40 mg HS PO 09/28/24 21:00 10/28/24 20:59 09/29/24 20:28 40 MG Benzocaine (Hurricaine/ [place] 20% [place]) 50 mcg ONCE TP 09/27/24 16:30 09/28/24 07:12 DC 09/27/24 18:40 1 MCG Carvedilol (Coreg 12.5MG) 12.5 mg BID PO 09/28/24 09:00 10/28/24 08:59 09/30/24 10:16 12.5 MG Cefepime HCl (MAXipime 1 GM vial) 1 gm Q24H IVPB 09/29/24 09:30 10/09/24 09:29 09/30/24 10:15 1 GM Cefepime HCl (MAXipime 2 gm vial) 2 gm Q8H IVPB 09/28/24 09:30 09/28/24 09:15 DC Diphenhydramine HCl (BENAdryl CAP) 25 mg Q4H PRN PO MILD ITCHING/RASH 09/28/24 07:00 10/28/24 06:59 Diphenhydramine HCl (BENAdryl INJ) 25 mg Q6H PRN IV SEVERE ITCHING/RASH 09/28/24 07:00 10/28/24 06:59 EZETIMIBE (Zetia) 10 mg DAILY PO 09/28/24 09:00 10/28/24 08:59 09/30/24 10:16 10 MG Famotidine (Pepcid 20mg Vial) 20 mg BID PRN IV NAUSEA/VOMITING 09/28/24 07:00 09/28/24 07:17 DC Famotidine (Pepcid 20mg Tab) 20 mg Q48H PO 09/28/24 09:00 10/28/24 08:59 09/30/24 10:16 20 MG Guaifenesin/ Dextromethorphan (RobiTUSSin DM 200/20MG 10ML) 10 ml Q4H PRN PO COUGH 09/28/24 07:00 10/28/24 06:59 Heparin Sodium (Porcine) (HEParin 5,000 UNIT VIAL) 5,000 unit TID SQ 09/28/24 09:00 10/28/24 08:59 09/30/24 10:19 5,000 UNIT Hydromorphone HCl (DiLAUDid 0.5MG INJ) 0.5 mg Q4H PRN IV SEVERE PAIN (7-10) IF NPO 09/28/24 07:00 10/03/24 06:59 Lactulose (Constulose 20gm/ 30ml Udcup) 20 gm BID PRN PO CONSTIPATION 09/28/24 07:00 10/28/24 06:59 Nitroglycerin (Nitrostat) 0.4 mg PROTOCOL PRN SL CHEST PAIN 09/28/24 07:00 10/28/24 06:59 Ondansetron HCl (zoFRAN 4MG INJ) 4 mg Q6H PRN IV NAUSEA/VOMITING 09/28/24 07:00 10/28/24 06:59 Sodium Bicarbonate 150 meq/Dextrose 1,150 ml @ 150 mls/hr Q7H40M IVP 09/29/24 10:00 10/29/24 09:59 09/30/24 10:17 150 MLS/HR Sodium Chloride 1,000 ml @ 50 mls/hr Q20H IV 09/28/24 07:00 10/28/24 06:59 09/29/24 03:14 100 MLS/HR Sodium Chloride 2,000 ml @ 0 mls/hr Q0M IV 09/28/24 14:30 10/28/24 14:29 09/28/24 17:42 0 MLS/HR Assessment: [ Incarcerated small bowel/incisional hernia, small bowel obstruction ] Plan: [Begin small sips of water REport any nausea or vomiting I/S exercises PT to mobilize patient Monitor urine output Pain meds as needed Antiemetics prn Ng tube to LIS. Please call with questions, concerns, and change in clinical status Appreciate medical management. ] UMU OCHOA NP Sep 30, 2024 11:07
[2024-09-30 12:00] VITALS: BP 134/66; PULSE 81; RESP 16; TEMP 98.3; O2SAT 94
--- NOTE | 2024-09-30 12:08 | PN ---
[facility] PROGRESS NOTE Date of Service: Sep 30, 2024 Time of Service: 12:01 SUBJECTIVE: 09/29 patient seen at bedside, no acute events overnight. He is status post exploratory laparotomy with repair of a herniated and strangulated bowel my postop day one. There appeared to be a perforation of the stomach during insertion of the 1st trocar due to the obstruction and the patient's still be significantly distended, the defect was identified and, the stomach was decompressed via EGD and then the defect was repaired. The remainder of the procedure was completed without complications. The patient tolerated the procedure well, see the op note for more details. Postoperatively the patient has had decreased urine output, he has had multiple bladder scans that have not shown significant urine within the bladder. He has had a proximally 290 cc output from his MARITO drain. We will increase his IV fluids to 150 cc/hour and recheck at approximately mid day. If he has not had any significant urine output but continues to have appreciable output from his MARITO drains we will consider sending for a body fluid creatinine to assess for a transected ureter. He has been afebrile, hemodynamically stable saturating well on 2 L nasal cannula, hemoglobin decreased from 9.5 down to 9.1, WBC increased from 9.1 up to 13.3, creatinine improved from 6.1 down to 5.1, CO2 decreased from 26 down to 16, an ABG+ was ordered and is consistent with anion gap metabolic acidosis compensated by respiratory alkalosis, lactic acid is barely elevated, these findings may suggest underlying renal tubular acidosis, patient has been initiated on bicarb drip, remainder of his labs are relatively unremarkable. Further care per colorectal surgery 09/30 Pt seen at bedside, no acute events overnight. He is status post exploratory laparotomy with repair of a herniated and strangulated bowel my postop day 2. Catherine catheter placed yesterday, 600 cc/out immediately after. NG tube drained 160 cc, MARITO drain output decreasing. WBC decreased from 13.3 down to 11.6, Hgb decreased from 9.1 down to 8.7, potassium decreased at 3.3, will be repleted according to protocol, creatinine improved from 5.1 down to 4.3. REVIEW OF SYSTEMS 12 point ROS negative unless noted in HPI PHYSICAL EXAM GENERAL APPEARANCE: The patient is awake, alert, and oriented, in no acute cardiopulmonary distress. NEUROLOGICAL: Cranial nerves II-XII grossly intact. Motor is 5/5 in bilateral upper and lower extremities proximal to distal. No sensory deficits. HEENT: Face is symmetric. Pupils are equal and reactive. Extraocular movements are intact. NECK: Supple. No JVD. No thyromegaly. No submental, submandibular, pre- /postauricular, occipital or supraclavicular lymphadenopathy. CHEST: Normal chest expansion. No Telemetry. LUNGS: Absence of any rales, rhonchi or any wheezing. CARDIOVASCULAR: Regular. S1 and S2 normal. No appreciable rubs, murmurs or gallops. ABDOMEN: Soft, nontender, and nondistended. There is no rebound, voluntary guarding, or rigidity. : Deferred. No Catherine. EXTREMITIES: Non-edematous and not cyanotic. No clubbing. Good capillary refill. SKIN: No skin breakdown. Vital Signs (last 8hr) Date Time Temp Pulse Resp B/P (MAP) Pulse Ox O2 Delivery O2 Flow Rate FiO2 09/30/24 10:16 128/63 09/30/24 08:00 98.1 83 20 129/63 95 Nasal Cannula 1.0 22 09/30/24 04:19 98.4 86 19 139/70 96 Nasal Cannula 1.0 LABS: Laboratory: Test 09/30/24 03:42 09/29/24 17:17 09/29/24 13:45 09/29/24 07:56 Range/Units White Blood Count 11.6 H 4.8-10.8 K/uL Red Blood Count 2.82 L 4.50-6.20 MIL/uL Hemoglobin 8.7 L 14.0-18.0 g/dL Hematocrit 26.6 L 42-54 % Mean Corpuscular Volume 94.3 79-99 fL Mean Corpuscular Hemoglobin 30.9 27.0-33.0 pg Mean Corpuscular Hemoglobin Concent 32.7 32.0-36.0 g/dL Red Cell Distribution Width 13.9 11.0-15.5 % Platelet Count 360 130-400 K/uL Mean Platelet Volume 10.2 7.5-10.5 fL Immature Granulocyte % (Auto) 0.6 0-1 % Neutrophils (%) (Auto) 92.2 H 40.0-77.0 % Lymphocytes (%) (Auto) 3.4 L 21.0-51.0 % Monocytes (%) (Auto) 3.7 3.0-13.0 % Eosinophils (%) (Auto) 0.0 0.0-8.0 % Basophils (%) (Auto) 0.1 0.0-5.0 % Neutrophils # (Auto) 10.7 H 1.8-7.7 K/uL Lymphocytes # (Auto) 0.4 L 1.0-4.8 K/uL Monocytes # (Auto) 0.4 0.1-1.0 K/uL Eosinophils # (Auto) 0.00 0.00-0.70 K/uL Basophils # (Auto) 0.01 0.00-0.20 K/uL Absolute Immature Granulocyte (auto 0.07 0-1 K/uL Nucleated Red Blood Cells 0.0 0.0-0.19 % Sodium Level 139 136-145 mmol/L Potassium Level 3.3 L 3.5-5.1 mmol/L Chloride Level 104 101-111 mmol/L Carbon Dioxide Level 27 21-32 mmol/L Blood Urea Nitrogen 72 H 7-18 mg/dL Creatinine 4.3 H 0.5-1.3 mg/dL Glomerular Filtration Rate Calc 13 >90 mL/min Random Glucose 281 #H 70-105 mg/dL Total Calcium 5.9 *L 8.5-10.1 mg/dL Iron Level 24 #L 65-175 mcg/dL Total Iron Binding Capacity 77 L 250-450 mcg/dL Percent Iron Saturation 31.1 30-44 % Urine Random Creatinine 121.80 30-135 mg/dL Urine Random Sodium 20 L 40-220 mmol/l Body Fluid Creatinine 4.8 mg/dL Blood Gas Specimen Type Arterial Arterial Blood pH 7.404 7.350-7.450 Arterial Blood Partial Pressure CO2 19 *L 35-48 mmHg Arterial Blood Partial Pressure O2 90.8 83.0-108.0 mmHg Arterial Blood HCO3 11.7 L 21.0-28.0 mmol/L Arterial Blood Oxygen Saturation 96.1 94.0-98.0 % Arterial Blood Base Excess -11.3 L -2.0-3.0 mmol/L Hemoglobin (Blood Gas) 9.4 L 13.5-17.5 g/dL Sodium (Blood Gas) 139 136-145 MMOL/L Bedside Potassium (Blood Gas) 4.2 3.4-4.5 MMOL/L Bedside Chloride (Blood Gas) 111 H 98-107 MMOL/L Bedside Glucose (Blood Gas) 120 H 65-95 MG/DL Bedside Ionized Calcium (Blood Gas) 0.95 L 1.15-1.33 MMOL/L Bedside Lactic Acid (Blood Gas) 1.44 H 0.36-0.75 MMOL/L Blood Gas Temperature 37.0 35.5-37.0 CELSIUS Blood Gas Flow-by 1.00 0.00-15.00 L/min Blood Gas Vent Mode 1 L NC ROOM AIR FiO2 24.0 % Blood Gas Specimen Comment MARY CORDOBA RN Test 09/29/24 03:55 Range/Units White Cell Morphology Comment See comments Phosphorus Level 4.2 2.5-4.9 mg/dL Magnesium Level 1.40 L 1.80-2.40 mg/dL Current Medications Medications (Trade) Dose Ordered Sig/Juanita Route PRN Reason Start Time Stop Time Status Last Admin Dose Admin Acetaminophen (TYLenol 325MG TAB) 650 mg Q4H PRN PO MILD PAIN (1-3) 09/28/24 07:00 10/28/24 06:59 Acetaminophen (TYLenol 325MG TAB) 650 mg Q6H PRN PO TEMPERATURE GREATER THAN 101.5 09/28/24 07:00 10/28/24 06:59 Acetaminophen/ Hydrocodone Bitart (NORco 5/325MG) 1 tab Q4H PRN PO MODERATE PAIN (4-6) 09/28/24 07:00 10/03/24 06:59 Acetaminophen/ Hydrocodone Bitart (NORco 5/325MG) 2 tab Q4H PRN PO SEVERE PAIN (7-10) 09/28/24 07:00 10/03/24 06:59 Al Hydroxide/Mg Hydroxide (MAALox PLUS 30ML) 30 ml Q6H PRN PO INDIGESTION 09/28/24 07:00 10/28/24 06:59 Aspirin (Aspirin 81mg Chew Tab) 81 mg DAILY PO 09/28/24 09:00 10/28/24 08:59 09/30/24 10:16 81 MG Atorvastatin Calcium (LIPItor 40MG) 40 mg HS PO 09/28/24 21:00 10/28/24 20:59 09/29/24 20:28 40 MG Benzocaine (Hurricaine/ [place] 20% [place]) 50 mcg ONCE TP 09/27/24 16:30 09/28/24 07:12 DC 09/27/24 18:40 1 MCG Carvedilol (Coreg 12.5MG) 12.5 mg BID PO 09/28/24 09:00 10/28/24 08:59 09/30/24 10:16 12.5 MG Cefepime HCl (MAXipime 1 GM vial) 1 gm Q24H IVPB 09/29/24 09:30 10/09/24 09:29 09/30/24 10:15 1 GM Cefepime HCl (MAXipime 2 gm vial) 2 gm Q8H IVPB 09/28/24 09:30 09/28/24 09:15 DC Diphenhydramine HCl (BENAdryl CAP) 25 mg Q4H PRN PO MILD ITCHING/RASH 09/28/24 07:00 10/28/24 06:59 Diphenhydramine HCl (BENAdryl INJ) 25 mg Q6H PRN IV SEVERE ITCHING/RASH 09/28/24 07:00 10/28/24 06:59 EZETIMIBE (Zetia) 10 mg DAILY PO 09/28/24 09:00 10/28/24 08:59 09/30/24 10:16 10 MG Famotidine (Pepcid 20mg Vial) 20 mg BID PRN IV NAUSEA/VOMITING 09/28/24 07:00 09/28/24 07:17 DC Famotidine (Pepcid 20mg Tab) 20 mg Q48H PO 09/28/24 09:00 10/28/24 08:59 09/30/24 10:16 20 MG Guaifenesin/ Dextromethorphan (RobiTUSSin DM 200/20MG 10ML) 10 ml Q4H PRN PO COUGH 09/28/24 07:00 10/28/24 06:59 Heparin Sodium (Porcine) (HEParin 5,000 UNIT VIAL) 5,000 unit TID SQ 09/28/24 09:00 10/28/24 08:59 09/30/24 10:19 5,000 UNIT Hydromorphone HCl (DiLAUDid 0.5MG INJ) 0.5 mg Q4H PRN IV SEVERE PAIN (7-10) IF NPO 09/28/24 07:00 10/03/24 06:59 Lactulose (Constulose 20gm/ 30ml Udcup) 20 gm BID PRN PO CONSTIPATION 09/28/24 07:00 10/28/24 06:59 Nitroglycerin (Nitrostat) 0.4 mg PROTOCOL PRN SL CHEST PAIN 09/28/24 07:00 10/28/24 06:59 Ondansetron HCl (zoFRAN 4MG INJ) 4 mg Q6H PRN IV NAUSEA/VOMITING 09/28/24 07:00 10/28/24 06:59 Sodium Bicarbonate 150 meq/Dextrose 1,150 ml @ 150 mls/hr Q7H40M IVP 09/29/24 10:00 10/29/24 09:59 09/30/24 10:17 150 MLS/HR Sodium Chloride 1,000 ml @ 50 mls/hr Q20H IV 09/28/24 07:00 10/28/24 06:59 09/29/24 03:14 100 MLS/HR Sodium Chloride 2,000 ml @ 0 mls/hr Q0M IV 09/28/24 14:30 10/28/24 14:29 09/28/24 17:42 0 MLS/HR DIAGNOSTICS / RADIOLOGY: [ ] ASSESSMENT: Small bowel obstruction secondary to incarcerated small bowel through ventral hernia, POA Dehydration secondary to recurrent vomiting, improving Post operative anion gap metabolic acidosis with respiratory compensation 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 Decreased urine output Hypertension 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 Dyslipidemia Normocytic anemia Colon cancer s/p hemicolectomy (09/12/24) PLAN: - Keep NPO, diet to be managed by surgery - Keep NG tube to intermittent suction - MARITO drains to be managed by surgery - Start bicarb drip per nephrology - Strict I&O - If urine output does not improve by midday, will order bladder scan and in & out catheter - Increase NS to 150 cc/hr - PRN medication for pain management - Repeat lactic acid at 1300 - Heparin for DVT prophylaxis - Colorectal surgery consulted, appreciate recommendations - Nephrology consulted, appreciate recommendations - PT to evaluate patient Disposition: Pending post op course, improvement in clinical status VINAY CUADRA MD Sep 30, 2024 12:08
--- NOTE | 2024-09-30 13:37 | NUR ---
nurse note taking over care of patient from previous nurse, reported potassium of 3.3 to provider, per Dr. Dunham no protocol/coverage at this time due to patient's kidney function.
[2024-09-30] MEDS: LACTATED RINGERS 1000ML 1,000 ML IV SCH (14:25)
--- NOTE | 2024-09-30 14:28 | PN ---
NEPHROLOGY PROGRESS NOTE Date/Time Patient Seen: Sep 30, 2024 Reason for Consultation: 14:25 SUBJECTIVE: This is an 83-year-old male with history of known colon cancer. The patient is status post hemicolectomy. The patient presented to the hospital with abdominal pain and distention. The patient with significant nausea, vomiting. Laboratory values revealed an elevated BUN and creatinine above his baseline. The patient's workup was consistent with bowel obstruction S/P exploratory laparotomy with repair of a herniated and strangulated bowel The patient's creatinine did stabilize overnight. He remains on the IV hydration. Urine output has been marginal Continues NGT to low intermittent suction. He was seen in the medical floor, in no acute distress Family at the bedside Prognosis remains guarded REVIEW OF SYSTEMS: GENERAL: Positive for generalized weakness NEUROLOGIC: Negative for any blurry vision, blind spots, double vision, facial asymmetry, dysphagia, dysarthria, hemiparesis, hemisensory deficits, vertigo, ataxia. HEENT: Negative for any head trauma, neck trauma, neck stiffness, photophobia, phonophobia, sinusitis, rhinitis. CARDIAC: Negative for any chest pain, dyspnea on exertion, paroxysmal nocturnal dyspnea, peripheral edema. PULMONARY: Negative for any shortness of breath, wheezing, COPD, or TB exposure. GASTROINTESTINAL: Negative for any abdominal pain, nausea, vomiting, bright red blood per rectum, melena. GENITOURINARY: Negative for any dysuria, hematuria, incontinence. INTEGUMENTARY: Negative for any rashes, cuts, insect bites. RHEUMATOLOGIC: Negative for any joint pains, photosensitive rashes, history of vasculitis or kidney problems. HEMATOLOGIC: Negative for any abnormal bruising, frequent infections or bleeding. Vital Signs (last 8hr) Date Time Temp Pulse Resp B/P (MAP) Pulse Ox O2 Delivery O2 Flow Rate FiO2 09/30/24 12:00 98.2 81 16 134/66 94 Nasal Cannula 1.0 22 09/30/24 10:16 128/63 09/30/24 08:00 98.1 83 20 129/63 95 Nasal Cannula 1.0 22 PHYSICAL EXAM: GENERAL: Alert and oriented x 3. No acute distress. Well-nourished. EYES: EOMI. Anicteric. HENT: Moist mucous membranes. No scleral icterus. No cervical lymphadenopathy. LUNGS: Clear to auscultation bilaterally. No accessory muscle use. CARDIOVASCULAR: Regular rate and rhythm. No murmur. No JVD. ABDOMEN: Soft, non-tender and non-distended. No palpable masses. EXTREMITIES: No edema. Non-tender. SKIN: No rashes or lesions. Warm. NEUROLOGIC: No focal neurological deficits. CN II-XII grossly intact, but not individually tested. PSYCHIATRIC: Cooperative. Appropriate mood and affect. Current Medications Medications (Trade) Dose Ordered Sig/Juanita Route PRN Reason Start Time Stop Time Status Last Admin Dose Admin Acetaminophen (TYLenol 325MG TAB) 650 mg Q4H PRN PO MILD PAIN (1-3) 09/28/24 07:00 10/28/24 06:59 Acetaminophen (TYLenol 325MG TAB) 650 mg Q6H PRN PO TEMPERATURE GREATER THAN 101.5 09/28/24 07:00 10/28/24 06:59 Acetaminophen/ Hydrocodone Bitart (NORco 5/325MG) 1 tab Q4H PRN PO MODERATE PAIN (4-6) 09/28/24 07:00 10/03/24 06:59 Acetaminophen/ Hydrocodone Bitart (NORco 5/325MG) 2 tab Q4H PRN PO SEVERE PAIN (7-10) 09/28/24 07:00 10/03/24 06:59 Al Hydroxide/Mg Hydroxide (MAALox PLUS 30ML) 30 ml Q6H PRN PO INDIGESTION 09/28/24 07:00 10/28/24 06:59 Aspirin (Aspirin 81mg Chew Tab) 81 mg DAILY PO 09/28/24 09:00 10/28/24 08:59 09/30/24 10:16 81 MG Atorvastatin Calcium (LIPItor 40MG) 40 mg HS PO 09/28/24 21:00 10/28/24 20:59 09/29/24 20:28 40 MG Benzocaine (Hurricaine/ [place] 20% [place]) 50 mcg ONCE TP 09/27/24 16:30 09/28/24 07:12 DC 09/27/24 18:40 1 MCG Carvedilol (Coreg 12.5MG) 12.5 mg BID PO 09/28/24 09:00 10/28/24 08:59 09/30/24 10:16 12.5 MG Cefepime HCl (MAXipime 1 GM vial) 1 gm Q24H IVPB 09/29/24 09:30 10/09/24 09:29 09/30/24 10:15 1 GM Cefepime HCl (MAXipime 2 gm vial) 2 gm Q8H IVPB 09/28/24 09:30 09/28/24 09:15 DC Diphenhydramine HCl (BENAdryl CAP) 25 mg Q4H PRN PO MILD ITCHING/RASH 09/28/24 07:00 10/28/24 06:59 Diphenhydramine HCl (BENAdryl INJ) 25 mg Q6H PRN IV SEVERE ITCHING/RASH 09/28/24 07:00 10/28/24 06:59 EZETIMIBE (Zetia) 10 mg DAILY PO 09/28/24 09:00 10/28/24 08:59 09/30/24 10:16 10 MG Famotidine (Pepcid 20mg Vial) 20 mg BID PRN IV NAUSEA/VOMITING 09/28/24 07:00 09/28/24 07:17 DC Famotidine (Pepcid 20mg Tab) 20 mg Q48H PO 09/28/24 09:00 10/28/24 08:59 09/30/24 10:16 20 MG Guaifenesin/ Dextromethorphan (RobiTUSSin DM 200/20MG 10ML) 10 ml Q4H PRN PO COUGH 09/28/24 07:00 10/28/24 06:59 Heparin Sodium (Porcine) (HEParin 5,000 UNIT VIAL) 5,000 unit TID SQ 09/28/24 09:00 10/28/24 08:59 09/30/24 10:19 5,000 UNIT Hydromorphone HCl (DiLAUDid 0.5MG INJ) 0.5 mg Q4H PRN IV SEVERE PAIN (7-10) IF NPO 09/28/24 07:00 10/03/24 06:59 Lactated Ringer's 1,000 ml @ 125 mls/hr Q8H IV 09/30/24 14:30 10/30/24 14:29 Lactulose (Constulose 20gm/ 30ml Udcup) 20 gm BID PRN PO CONSTIPATION 09/28/24 07:00 10/28/24 06:59 Nitroglycerin (Nitrostat) 0.4 mg PROTOCOL PRN SL CHEST PAIN 09/28/24 07:00 10/28/24 06:59 Ondansetron HCl (zoFRAN 4MG INJ) 4 mg Q6H PRN IV NAUSEA/VOMITING 09/28/24 07:00 10/28/24 06:59 Sodium Bicarbonate 150 meq/Dextrose 1,150 ml @ 150 mls/hr Q7H40M IVP 09/29/24 10:00 09/30/24 14:02 DC 09/30/24 10:17 150 MLS/HR Sodium Chloride 1,000 ml @ 50 mls/hr Q20H IV 09/28/24 07:00 10/28/24 06:59 09/29/24 03:14 100 MLS/HR Sodium Chloride 2,000 ml @ 0 mls/hr Q0M IV 09/28/24 14:30 09/30/24 14:05 DC 09/28/24 17:42 0 MLS/HR LABORATORY: [ ] Hematology Labs: Test 09/30/24 03:42 09/29/24 03:55 Range/Units White Blood Count 11.6 H 4.8-10.8 K/uL Red Blood Count 2.82 L 4.50-6.20 MIL/uL Hemoglobin 8.7 L 14.0-18.0 g/dL Hematocrit 26.6 L 42-54 % Mean Corpuscular Volume 94.3 79-99 fL Mean Corpuscular Hemoglobin 30.9 27.0-33.0 pg Mean Corpuscular Hemoglobin Concent 32.7 32.0-36.0 g/dL Red Cell Distribution Width 13.9 11.0-15.5 % Platelet Count 360 130-400 K/uL Mean Platelet Volume 10.2 7.5-10.5 fL Immature Granulocyte % (Auto) 0.6 0-1 % Neutrophils (%) (Auto) 92.2 H 40.0-77.0 % Lymphocytes (%) (Auto) 3.4 L 21.0-51.0 % Monocytes (%) (Auto) 3.7 3.0-13.0 % Eosinophils (%) (Auto) 0.0 0.0-8.0 % Basophils (%) (Auto) 0.1 0.0-5.0 % Neutrophils # (Auto) 10.7 H 1.8-7.7 K/uL Lymphocytes # (Auto) 0.4 L 1.0-4.8 K/uL Monocytes # (Auto) 0.4 0.1-1.0 K/uL Eosinophils # (Auto) 0.00 0.00-0.70 K/uL Basophils # (Auto) 0.01 0.00-0.20 K/uL Absolute Immature Granulocyte (auto 0.07 0-1 K/uL Nucleated Red Blood Cells 0.0 0.0-0.19 % White Cell Morphology Comment See comments Chemistry Labs: Test 09/30/24 03:42 09/29/24 03:55 Range/Units Sodium Level 139 136-145 mmol/L Potassium Level 3.3 L 3.5-5.1 mmol/L Chloride Level 104 101-111 mmol/L Carbon Dioxide Level 27 21-32 mmol/L Blood Urea Nitrogen 72 H 7-18 mg/dL Creatinine 4.3 H 0.5-1.3 mg/dL Glomerular Filtration Rate Calc 13 >90 mL/min Random Glucose 281 #H 70-105 mg/dL Total Calcium 5.9 *L 8.5-10.1 mg/dL Iron Level 24 #L 65-175 mcg/dL Total Iron Binding Capacity 77 L 250-450 mcg/dL Percent Iron Saturation 31.1 30-44 % Phosphorus Level 4.2 2.5-4.9 mg/dL Magnesium Level 1.40 L 1.80-2.40 mg/dL DIAGNOSTICS / RADIOLOGY: REASON: CREPITUS POST-OP ORDERING PHYSICIAN: MAURICIO UNGER CRNA PROCEDURE: CXR1VW - CHEST 1VW Exam Type: CHEST 1VW Clinical Information: CREPITUS POST-OP Comparison: None Findings: Extensive chest wall emphysema. The lungs are clear of infiltrates. The heart is normal in size. The bony and soft tissue structures of the chest are unremarkable. Impression: Clear lungs. Extensive chest wall emphysema. DICTATED BY: PATO BERGER MD DATE: 09/28/24 9884 REASON: abd distension ORDERING PHYSICIAN: NOREEN SHERIDAN MD PROCEDURE: ABD PEL WO - CT ABDOMEN/PELVIS W/O CONTRAST CT ABDOMEN WITHOUT CONTRAST. CT PELVIS WITHOUT CONTRAST. INDICATION: Abdominal distention TECHNIQUE: Routine transaxial imaging using 5 mm slice thickness through the abdomen and pelvis without the administration of IV contrast. Thin slice reconstructions are also provided. Coronal and sagittal reformatted images acquired for interpretation. CT was performed with one or more of the following dose reduction techniques: Automated exposure control, adjustment of the mA and/or kV according to patient size, or use of iterative reconstruction technique. COMPARISON: None FINDINGS: ON NONCONTRAST IMAGING: ABDOMEN: Heart size is normal. Trace pericardial fluid inferolaterally on the right. Large aggregates of "tree-in-bud" micronodular opacities scattered throughout the right lung. Left lung base appears normal. Stomach is markedly distended with mostly fluid and a small amount of ingested food material and air. No abnormal renal calcifications, hydronephrosis, perinephric inflammation, or proximal hydroureter detected. Moderate bilateral renal atrophy. 2.1 cm simple left renal cyst at the upper pole. 1.1 cm simple cyst at the lower pole of the left kidney. Subcentimeter proteinaceous or hemorrhagic cyst at the mid to lower portion of the left kidney. The liver is normal in size and smooth in contour without biliary duct dilation. Trace free fluid within the right upper abdomen. The spleen is normal in size and attenuation. Miniscule calcific gallbladder fundal stone. The pancreas appears normal without pancreatic duct dilation. The adrenal glands appear normal. No significant abdominal, retrocrural or retroperitoneal adenopathy noted. No evidence for intra-abdominal free air or organized fluid collection. Mild calcific plaque is noted along the abdominal aortic and iliac vessel sanchez without aneurysmal dilation. Tremendous amount of subcutaneous emphysema along the anterior right greater than left abdomen and pelvis including extension into along both groins and scrotal soft tissues. PELVIS: Small fat and fluid-containing nonobstructing right inguinal hernia. No abnormal calcifications within the urinary bladder or distal ureters. No evidence for free air or organized pelvic fluid collection. No significant pelvic adenopathy detected. Fluid-filled dilated small bowel loops identified. Transition point is at the anterolateral right lower abdominal fat and small bowel loop-containing nonobstructing hernia with abdominal wall defect measuring up to 1.5 cm.. Several diverticula along the distal colon. Splenic flexure anastomosis appears normal. 4.5 cm air and fluid-filled diverticulum arises proximally off the duodenal sweep. Visible osseous structures are intact. IMPRESSION: 1. Small fat and small bowel loop-containing anterolateral right lower abdominal wall hernia contributing to acute small bowel obstruction, without pneumatosis or pneumoperitoneum. Small fat and fluid-containing nonobstructing right inguinal hernia. 2. Tremendous amount of subcutaneous emphysema along the anterior right greater than left abdomen and pelvis including extension into along both groins and scrotal soft tissues. 3. Nontypical right lung pneumonia or other small airways disease process. 4. Distal colonic diverticulosis. 5. Cholelithiasis. 6. Moderate bilateral renal atrophy. 7. Trace pericardial fluid inferolaterally on the right. 8. Trace free fluid within the right upper abdomen. 9. Additional minor findings and pertinent negatives as reported. 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 We have reviewed external records in detail Discontinue bicarb drip. Patient remains NPO may start normal saline for hydration Require close monitoring of renal function and electrolytes Order CBC, CMP, and electrolytes in am Continue with antibiotics Renal diabetic diet BiPAP as necessary, for respiratory distress Monitor blood pressure adjust medication doses as needed Avoid hypotensive episodes May use Dilaudid 0.5 mg IV every 6 hours as needed for severe pain Monitor blood sugars Strict intake, output, and daily weight should be monitored Please renally adjust medications Avoid nephrotoxic and nonsteroidal drugs Avoid contrast if possible Will continue to monitor renal function, anemia, electrolytes Treatment plan discussed with patient Questions were answered We have discussed with the other team physicians in detail about the care plan We will continue to monitor the patient closely ATTESTATION BY PHYSICIAN I have seen and examined the patient. I reviewed the documentation, medical decision making, and treatment plan as noted by the mid-level provider above. I agree with the findings and plan of care. CHRISSY NEWTON MD, [facility] Sep 30, 2024 14:28
[2024-09-30 16:00] VITALS: BP 127/69; PULSE 79; RESP 18; TEMP 98.5
[2024-09-30 20:00] VITALS: BP 134/64; PULSE 83; RESP 18; TEMP 97.8; O2SAT 94
[2024-09-30] MEDS: HYDROcodone/APAP 5/325 1 TAB TABLET PO PRN (20:33)
[2024-10-01] VITALS (12 sets, daily range): BP systolic 113–142; BP diastolic 56–70; PULSE 79–96; RESP 16–19; TEMP 97.1–98.4; O2SAT 96–99
[2024-10-01 04:20] LABS: BASOPHILS # (AUTO) 0.01 K/uL (0.00-0.20); BASOPHILS % (AUTO) 0.1 % (0.0-5.0); EOSINOPHILS # (AUTO) 0.01 K/uL (0.00-0.70); EOSINOPHILS % (AUTO) 0.1 % (0.0-8.0); HEMATOCRIT 29.6 % (42-54); IMMATURE GRANULOCYTE ABSOLUTE 0.06 K/uL (0-1); LYMPHOCYTES # (AUTO) 0.6 K/uL (1.0-4.8); LYMPHOCYTES % (AUTO) 5.2 % (21.0-51.0); MEAN CORPUSCULAR HEMOGLOBIN 30.4 pg (27.0-33.0); MEAN CORPUSCULAR HGB CONC 32.1 g/dL (32.0-36.0); MEAN CORPUSCULAR VOLUME 94.6 fL (79-99); MONOCYTES # (AUTO) 0.3 K/uL (0.1-1.0); MONOCYTES % (AUTO) 3.1 % (3.0-13.0); NEUTROPHILS # (AUTO) 9.9 K/uL (1.8-7.7); NEUTROPHILS % (AUTO) 90.9 % (40.0-77.0); PLATELET COUNT (AUTO) 336 K/uL (130-400); RED BLOOD CELL COUNT(AUTO) 3.13 MIL/uL (4.50-6.20); RED CELL DISTRIBUTION WIDTH 14.3 % (11.0-15.5); WHITE BLOOD COUNT (AUTO) 10.9 K/uL (4.8-10.8)
[2024-10-01 04:30] LABS: CREATININE 3.7 mg/dL (0.5-1.3); MAGNESIUM 1.2 mg/dL (1.80-2.40); PHOSPHORUS 2.3 mg/dL (2.5-4.9); POTASSIUM 3.4 mmol/L (3.5-5.1)
--- NOTE | 2024-10-01 08:07 | PN ---
COLORECTAL PROGRESS NOTE Date of Visit: Oct 01, 2024 Time of Visit: 08:02 Events / Notes: [Patient on POD 2 from robotic assisted diagnostic la with partial small bowel resection with primary anastomosis, primary repair of incisional hernia, repair of iatrogenic gastrotomy, EGD with therapeutic decompression of gastric content, and intraabdominal drain placement x 2. NO acute events overnight. VSS. WBC decreased from 13.3 to 11.6 this am. HGB 8.7, down from 9.1 yesterday. Examined at bedside. He is on O2 at 2l via NC. His respirations are unlabored. BBS clear. Abd is soft and not distended. Incisions are D&I rotary drum tanner. BS to upper abd but hypoactive to lower. 2 inches of wick packing removed and wound care done. MARITO to mid abdomen with 50 ml of serous output. MARITO to left upper abdomen with 70 ml of serous output at time of exam. Catherine cath with cyu. Poc discussed. Pt to assist with movement and ambulation. Patient and spouse agree. 10/01/24: No acute events overnight. Patient's VSS. He has tolerated sips of water without any n/v. NG tube to LIS and had 100ml in the past 24 hours. BBS are clear. O2 @ 2l via NC; Abd soft and not distended with active BS throughout. +BM x 1 reported by patient. Incisions D&I. MARITO drains x2 with serous output. Plan to advance diet to clears. I/S exercises encouraged. PT to mobilize and ambulate patient. Ng tube to remain in place for now. ] Review of Systems: CONSTITUTIONAL: No malaise or change in sensation of wellbeing. ENMT: No rhinorrhea, otorrhea, sinus pain, ear ache. CARDIOVASCULAR: No angina, palpitations, orthopnea or paroxysmal dyspnea. RESPIRATORY: No SOB. GASTROINTESTINAL: No abdominal pain, nausea, vomiting, diarrhea, hematemesis, melena or change in the patient's habitual bowel movements consistency/number. GENITOURINARY: No dysuria, hematuria or change in bladder continence. MUSCULOSKELETAL: No new muscle pain or decrease in muscular strength. No new joint swelling, redness or tenderness. SKIN: No new rash. Physical Exam: GEN: Awake, alert, oriented in person, time and place, and in no acute distress. HEENT: No rhinorrhea. Oral pharyngeal mucosa is pink, moist and within normal limits. Neck is supple CHEST: Inspection, palpation of the chest were unremarkable. Lung auscultation revealed normal breath sounds bilaterally. CARDIAC: PMI is within normal limits. Heart sounds are regular.. ABD: Soft, non-tender and not distended. No peritoneal signs on palpation. No organomegaly. Active bs throughout. MARITO drain to mid abdomen and Marito drain to left side of abdomen with serous output. Catherine cath draining cyu via gravity. EXT: No cyanosis or clubbing. No edema. Scds in place. SKIN: Intact. No rashes. JOINTS: No evidence of synovitis or acute arthritis. NEURO: Alert and oriented to name, place and person. No focal motor deficits. Normal speech. Gait not assessed. Strength is normal. Vital Signs (last 8hr) Date Time Temp Pulse Resp B/P (MAP) Pulse Ox O2 Delivery O2 Flow Rate FiO2 10/01/24 07:56 97.3 80 16 128/64 98 Room Air 10/01/24 04:23 98.2 96 19 142/66 96 Room Air 10/01/24 01:25 97.9 82 17 122/60 95 Room Air Laboratory: [ ] Laboratory: Test 10/01/24 03:37 09/30/24 03:42 09/29/24 17:17 09/29/24 13:45 Range/Units White Blood Count 10.9 H 4.8-10.8 K/uL Red Blood Count 3.13 L 4.50-6.20 MIL/uL Hemoglobin 9.5 L 14.0-18.0 g/dL Hematocrit 29.6 L 42-54 % Mean Corpuscular Volume 94.6 79-99 fL Mean Corpuscular Hemoglobin 30.4 27.0-33.0 pg Mean Corpuscular Hemoglobin Concent 32.1 32.0-36.0 g/dL Red Cell Distribution Width 14.3 11.0-15.5 % Platelet Count 336 130-400 K/uL Mean Platelet Volume 10.2 7.5-10.5 fL Immature Granulocyte % (Auto) 0.6 0-1 % Neutrophils (%) (Auto) 90.9 H 40.0-77.0 % Lymphocytes (%) (Auto) 5.2 L 21.0-51.0 % Monocytes (%) (Auto) 3.1 3.0-13.0 % Eosinophils (%) (Auto) 0.1 0.0-8.0 % Basophils (%) (Auto) 0.1 0.0-5.0 % Neutrophils # (Auto) 9.9 H 1.8-7.7 K/uL Lymphocytes # (Auto) 0.6 L 1.0-4.8 K/uL Monocytes # (Auto) 0.3 0.1-1.0 K/uL Eosinophils # (Auto) 0.01 0.00-0.70 K/uL Basophils # (Auto) 0.01 0.00-0.20 K/uL Absolute Immature Granulocyte (auto 0.06 0-1 K/uL Nucleated Red Blood Cells 0.0 0.0-0.19 % Sodium Level 142 136-145 mmol/L Potassium Level 3.4 L 3.5-5.1 mmol/L Chloride Level 105 101-111 mmol/L Carbon Dioxide Level 31 21-32 mmol/L Blood Urea Nitrogen 71 H 7-18 mg/dL Creatinine 3.7 H 0.5-1.3 mg/dL Glomerular Filtration Rate Calc 16 >90 mL/min Random Glucose 127 #H 70-105 mg/dL Total Calcium 6.0 *L 8.5-10.1 mg/dL Phosphorus Level 2.3 L 2.5-4.9 mg/dL Magnesium Level 1.20 L 1.80-2.40 mg/dL Iron Level 24 #L 65-175 mcg/dL Total Iron Binding Capacity 77 L 250-450 mcg/dL Percent Iron Saturation 31.1 30-44 % Urine Random Creatinine 121.80 30-135 mg/dL Urine Random Sodium 20 L 40-220 mmol/l Body Fluid Creatinine 4.8 mg/dL Current Medications Medications (Trade) Dose Ordered Sig/Juanita Route PRN Reason Start Time Stop Time Status Last Admin Dose Admin Acetaminophen (TYLenol 325MG TAB) 650 mg Q4H PRN PO MILD PAIN (1-3) 09/28/24 07:00 10/28/24 06:59 Acetaminophen (TYLenol 325MG TAB) 650 mg Q6H PRN PO TEMPERATURE GREATER THAN 101.5 09/28/24 07:00 10/28/24 06:59 Acetaminophen/ Hydrocodone Bitart (NORco 5/325MG) 1 tab Q4H PRN PO MODERATE PAIN (4-6) 09/28/24 07:00 10/03/24 06:59 09/30/24 20:33 1 TAB Acetaminophen/ Hydrocodone Bitart (NORco 5/325MG) 2 tab Q4H PRN PO SEVERE PAIN (7-10) 09/28/24 07:00 10/03/24 06:59 Al Hydroxide/Mg Hydroxide (MAALox PLUS 30ML) 30 ml Q6H PRN PO INDIGESTION 09/28/24 07:00 10/28/24 06:59 Aspirin (Aspirin 81mg Chew Tab) 81 mg DAILY PO 09/28/24 09:00 10/28/24 08:59 09/30/24 10:16 81 MG Atorvastatin Calcium (LIPItor 40MG) 40 mg HS PO 09/28/24 21:00 10/28/24 20:59 09/30/24 20:34 40 MG Benzocaine (Hurricaine/ [place] 20% [place]) 50 mcg ONCE TP 09/27/24 16:30 09/28/24 07:12 DC 09/27/24 18:40 1 MCG Carvedilol (Coreg 12.5MG) 12.5 mg BID PO 09/28/24 09:00 10/28/24 08:59 09/30/24 20:34 12.5 MG Cefepime HCl (MAXipime 1 GM vial) 1 gm Q24H IVPB 09/29/24 09:30 10/09/24 09:29 09/30/24 10:15 1 GM Cefepime HCl (MAXipime 2 gm vial) 2 gm Q8H IVPB 09/28/24 09:30 09/28/24 09:15 DC Diphenhydramine HCl (BENAdryl CAP) 25 mg Q4H PRN PO MILD ITCHING/RASH 09/28/24 07:00 10/28/24 06:59 Diphenhydramine HCl (BENAdryl INJ) 25 mg Q6H PRN IV SEVERE ITCHING/RASH 09/28/24 07:00 10/28/24 06:59 EZETIMIBE (Zetia) 10 mg DAILY PO 09/28/24 09:00 10/28/24 08:59 09/30/24 10:16 10 MG Famotidine (Pepcid 20mg Vial) 20 mg BID PRN IV NAUSEA/VOMITING 09/28/24 07:00 09/28/24 07:17 DC Famotidine (Pepcid 20mg Tab) 20 mg Q48H PO 09/28/24 09:00 10/28/24 08:59 09/30/24 10:16 20 MG Guaifenesin/ Dextromethorphan (RobiTUSSin DM 200/20MG 10ML) 10 ml Q4H PRN PO COUGH 09/28/24 07:00 10/28/24 06:59 Heparin Sodium (Porcine) (HEParin 5,000 UNIT VIAL) 5,000 unit TID SQ 09/28/24 09:00 10/28/24 08:59 09/30/24 20:40 5,000 UNIT Hydromorphone HCl (DiLAUDid 0.5MG INJ) 0.5 mg Q4H PRN IV SEVERE PAIN (7-10) IF NPO 09/28/24 07:00 10/03/24 06:59 Lactated Ringer's 1,000 ml @ 125 mls/hr Q8H IV 09/30/24 14:30 10/30/24 14:29 10/01/24 06:23 125 MLS/HR Lactulose (Constulose 20gm/ 30ml Udcup) 20 gm BID PRN PO CONSTIPATION 09/28/24 07:00 10/28/24 06:59 Nitroglycerin (Nitrostat) 0.4 mg PROTOCOL PRN SL CHEST PAIN 09/28/24 07:00 10/28/24 06:59 Ondansetron HCl (zoFRAN 4MG INJ) 4 mg Q6H PRN IV NAUSEA/VOMITING 09/28/24 07:00 10/28/24 06:59 Sodium Bicarbonate 150 meq/Dextrose 1,150 ml @ 150 mls/hr Q7H40M IVP 09/29/24 10:00 09/30/24 14:02 DC 09/30/24 10:17 150 MLS/HR Sodium Chloride 1,000 ml @ 50 mls/hr Q20H IV 09/28/24 07:00 10/28/24 06:59 09/29/24 03:14 100 MLS/HR Sodium Chloride 2,000 ml @ 0 mls/hr Q0M IV 09/28/24 14:30 09/30/24 14:05 DC 09/28/24 17:42 0 MLS/HR Assessment: [ Incarcerated small bowel/incisional hernia, small bowel obstruction ] Plan: [Clear liquid diet REport any nausea or vomiting I/S exercises encouraged PT to mobilize patient Monitor urine output Pain meds as needed Antiemetics prn Ng tube to LIS. Clamp for meals and check residual 30 min after meals Please call with questions, concerns, and change in clinical status Appreciate medical management. ] UMU OCHOA NP Oct 01, 2024 08:07
[2024-10-01] MEDS: IpraTROPium/alBUTERol SULFATE 3 ML SOLUTION IH SCH (11:47)
--- NOTE | 2024-10-01 13:29 | PN ---
[facility] PROGRESS NOTE Date of Service: Oct 01, 2024 Time of Service: 13:23 SUBJECTIVE: 09/29 patient seen at bedside, no acute events overnight. He is status post exploratory laparotomy with repair of a herniated and strangulated bowel my postop day one. There appeared to be a perforation of the stomach during insertion of the 1st trocar due to the obstruction and the patient's still be significantly distended, the defect was identified and, the stomach was decompressed via EGD and then the defect was repaired. The remainder of the procedure was completed without complications. The patient tolerated the procedure well, see the op note for more details. Postoperatively the patient has had decreased urine output, he has had multiple bladder scans that have not shown significant urine within the bladder. He has had a proximally 290 cc output from his MARITO drain. We will increase his IV fluids to 150 cc/hour and recheck at approximately mid day. If he has not had any significant urine output but continues to have appreciable output from his MARITO drains we will consider sending for a body fluid creatinine to assess for a transected ureter. He has been afebrile, hemodynamically stable saturating well on 2 L nasal cannula, hemoglobin decreased from 9.5 down to 9.1, WBC increased from 9.1 up to 13.3, creatinine improved from 6.1 down to 5.1, CO2 decreased from 26 down to 16, an ABG+ was ordered and is consistent with anion gap metabolic acidosis compensated by respiratory alkalosis, lactic acid is barely elevated, these findings may suggest underlying renal tubular acidosis, patient has been initiated on bicarb drip, remainder of his labs are relatively unremarkable. Further care per colorectal surgery 09/30 Pt seen at bedside, no acute events overnight. He is status post exploratory laparotomy with repair of a herniated and strangulated bowel my postop day 2. Catherine catheter placed yesterday, 600 cc/out immediately after. NG tube drained 160 cc, MARITO drain output decreasing. WBC decreased from 13.3 down to 11.6, Hgb decreased from 9.1 down to 8.7, potassium decreased at 3.3, will be repleted according to protocol, creatinine improved from 5.1 down to 4.3. 10/01 patient seen at bedside, no acute events overnight. He is status post exploratory laparotomy with repair of a herniated and strangulated bowel my postop day 3. NG tube has been clamped and patient is started on clear liquid diet. Patient with notable wheeze today at bedside, we will start on DuoNebs and budesonide. He has been afebrile, hemodynamically stable saturating well on 2 L nasal cannula. WBC improved from 11.6 down to 10.9, hemoglobin improved from 8.7 up to 9.5, creatinine improved from 4.3 down to 3.7. Remainder of his labs are relatively unremarkable. REVIEW OF SYSTEMS 12 point ROS negative unless noted in HPI PHYSICAL EXAM GENERAL APPEARANCE: The patient is awake, alert, and oriented, in no acute cardiopulmonary distress. NEUROLOGICAL: Cranial nerves II-XII grossly intact. Motor is 5/5 in bilateral upper and lower extremities proximal to distal. No sensory deficits. HEENT: Face is symmetric. Pupils are equal and reactive. Extraocular movements are intact. NECK: Supple. No JVD. No thyromegaly. No submental, submandibular, pre- /postauricular, occipital or supraclavicular lymphadenopathy. CHEST: Normal chest expansion. No Telemetry. LUNGS: Absence of any rales, rhonchi or any wheezing. CARDIOVASCULAR: Regular. S1 and S2 normal. No appreciable rubs, murmurs or gallops. ABDOMEN: Soft, nontender, and nondistended. There is no rebound, voluntary guarding, or rigidity. : Deferred. No Catherine. EXTREMITIES: Non-edematous and not cyanotic. No clubbing. Good capillary refill. SKIN: No skin breakdown. Vital Signs (last 8hr) Date Time Temp Pulse Resp B/P (MAP) Pulse Ox O2 Delivery O2 Flow Rate FiO2 10/01/24 11:52 88 18 10/01/24 11:51 18 N/Cannula Low lpm 2.0 28 10/01/24 11:42 97.2 85 18 113/56 97 Nasal Cannula 2.0 10/01/24 09:00 98 Nasal Cannula* 2 28 10/01/24 07:56 97.3 80 16 128/64 98 Nasal Cannula 2.0 LABS: Laboratory: Test 10/01/24 03:37 09/30/24 03:42 09/29/24 17:17 09/29/24 13:45 Range/Units White Blood Count 10.9 H 4.8-10.8 K/uL Red Blood Count 3.13 L 4.50-6.20 MIL/uL Hemoglobin 9.5 L 14.0-18.0 g/dL Hematocrit 29.6 L 42-54 % Mean Corpuscular Volume 94.6 79-99 fL Mean Corpuscular Hemoglobin 30.4 27.0-33.0 pg Mean Corpuscular Hemoglobin Concent 32.1 32.0-36.0 g/dL Red Cell Distribution Width 14.3 11.0-15.5 % Platelet Count 336 130-400 K/uL Mean Platelet Volume 10.2 7.5-10.5 fL Immature Granulocyte % (Auto) 0.6 0-1 % Neutrophils (%) (Auto) 90.9 H 40.0-77.0 % Lymphocytes (%) (Auto) 5.2 L 21.0-51.0 % Monocytes (%) (Auto) 3.1 3.0-13.0 % Eosinophils (%) (Auto) 0.1 0.0-8.0 % Basophils (%) (Auto) 0.1 0.0-5.0 % Neutrophils # (Auto) 9.9 H 1.8-7.7 K/uL Lymphocytes # (Auto) 0.6 L 1.0-4.8 K/uL Monocytes # (Auto) 0.3 0.1-1.0 K/uL Eosinophils # (Auto) 0.01 0.00-0.70 K/uL Basophils # (Auto) 0.01 0.00-0.20 K/uL Absolute Immature Granulocyte (auto 0.06 0-1 K/uL Nucleated Red Blood Cells 0.0 0.0-0.19 % Sodium Level 142 136-145 mmol/L Potassium Level 3.4 L 3.5-5.1 mmol/L Chloride Level 105 101-111 mmol/L Carbon Dioxide Level 31 21-32 mmol/L Blood Urea Nitrogen 71 H 7-18 mg/dL Creatinine 3.7 H 0.5-1.3 mg/dL Glomerular Filtration Rate Calc 16 >90 mL/min Random Glucose 127 #H 70-105 mg/dL Total Calcium 6.0 *L 8.5-10.1 mg/dL Phosphorus Level 2.3 L 2.5-4.9 mg/dL Magnesium Level 1.20 L 1.80-2.40 mg/dL Iron Level 24 #L 65-175 mcg/dL Total Iron Binding Capacity 77 L 250-450 mcg/dL Percent Iron Saturation 31.1 30-44 % Urine Random Creatinine 121.80 30-135 mg/dL Urine Random Sodium 20 L 40-220 mmol/l Body Fluid Creatinine 4.8 mg/dL Current Medications Medications (Trade) Dose Ordered Sig/Juanita Route PRN Reason Start Time Stop Time Status Last Admin Dose Admin Acetaminophen (TYLenol 325MG TAB) 650 mg Q4H PRN PO MILD PAIN (1-3) 09/28/24 07:00 10/28/24 06:59 Acetaminophen (TYLenol 325MG TAB) 650 mg Q6H PRN PO TEMPERATURE GREATER THAN 101.5 09/28/24 07:00 10/28/24 06:59 Acetaminophen/ Hydrocodone Bitart (NORco 5/325MG) 1 tab Q4H PRN PO MODERATE PAIN (4-6) 09/28/24 07:00 10/03/24 06:59 09/30/24 20:33 1 TAB Acetaminophen/ Hydrocodone Bitart (NORco 5/325MG) 2 tab Q4H PRN PO SEVERE PAIN (7-10) 09/28/24 07:00 10/03/24 06:59 Al Hydroxide/Mg Hydroxide (MAALox PLUS 30ML) 30 ml Q6H PRN PO INDIGESTION 09/28/24 07:00 10/28/24 06:59 Albuterol (DUOneb) 1 UDVIAL [id number] IH 10/01/24 12:00 10/31/24 11:59 10/01/24 11:47 1 UDVIAL Aspirin (Aspirin 81mg Chew Tab) 81 mg DAILY PO 09/28/24 09:00 10/28/24 08:59 09/30/24 10:16 81 MG Atorvastatin Calcium (LIPItor 40MG) 40 mg HS PO 09/28/24 21:00 10/28/24 20:59 09/30/24 20:34 40 MG Benzocaine (Hurricaine/ [place] 20% [place]) 50 mcg ONCE TP 09/27/24 16:30 09/28/24 07:12 DC 09/27/24 18:40 1 MCG Budesonide (Pulmicort 0.5 Mg/2ml) 0.5 mg BIDRESP IH 10/01/24 18:00 10/31/24 17:59 Carvedilol (Coreg 12.5MG) 12.5 mg BID PO 09/28/24 09:00 10/28/24 08:59 09/30/24 20:34 12.5 MG Cefepime HCl (MAXipime 1 GM vial) 1 gm Q24H IVPB 09/29/24 09:30 10/09/24 09:29 10/01/24 09:25 1 GM Cefepime HCl (MAXipime 2 gm vial) 2 gm Q8H IVPB 09/28/24 09:30 09/28/24 09:15 DC Diphenhydramine HCl (BENAdryl CAP) 25 mg Q4H PRN PO MILD ITCHING/RASH 09/28/24 07:00 10/28/24 06:59 Diphenhydramine HCl (BENAdryl INJ) 25 mg Q6H PRN IV SEVERE ITCHING/RASH 09/28/24 07:00 10/28/24 06:59 EZETIMIBE (Zetia) 10 mg DAILY PO 09/28/24 09:00 10/28/24 08:59 09/30/24 10:16 10 MG Famotidine (Pepcid 20mg Vial) 20 mg BID PRN IV NAUSEA/VOMITING 09/28/24 07:00 09/28/24 07:17 DC Famotidine (Pepcid 20mg Tab) 20 mg Q48H PO 09/28/24 09:00 10/28/24 08:59 09/30/24 10:16 20 MG Guaifenesin/ Dextromethorphan (RobiTUSSin DM 200/20MG 10ML) 10 ml Q4H PRN PO COUGH 09/28/24 07:00 10/28/24 06:59 Heparin Sodium (Porcine) (HEParin 5,000 UNIT VIAL) 5,000 unit TID SQ 09/28/24 09:00 10/28/24 08:59 10/01/24 09:44 5,000 UNIT Hydromorphone HCl (DiLAUDid 0.5MG INJ) 0.5 mg Q4H PRN IV SEVERE PAIN (7-10) IF NPO 09/28/24 07:00 10/03/24 06:59 Lactated Ringer's 1,000 ml @ 125 mls/hr Q8H IV 09/30/24 14:30 10/30/24 14:29 10/01/24 06:23 125 MLS/HR Lactulose (Constulose 20gm/ 30ml Udcup) 20 gm BID PRN PO CONSTIPATION 09/28/24 07:00 10/28/24 06:59 Nitroglycerin (Nitrostat) 0.4 mg PROTOCOL PRN SL CHEST PAIN 09/28/24 07:00 10/28/24 06:59 Ondansetron HCl (zoFRAN 4MG INJ) 4 mg Q6H PRN IV NAUSEA/VOMITING 09/28/24 07:00 10/28/24 06:59 Sodium Bicarbonate 150 meq/Dextrose 1,150 ml @ 150 mls/hr Q7H40M IVP 09/29/24 10:00 09/30/24 14:02 DC 09/30/24 10:17 150 MLS/HR Sodium Chloride 1,000 ml @ 50 mls/hr Q20H IV 09/28/24 07:00 10/28/24 06:59 09/29/24 03:14 100 MLS/HR Sodium Chloride 2,000 ml @ 0 mls/hr Q0M IV 09/28/24 14:30 09/30/24 14:05 DC 09/28/24 17:42 0 MLS/HR DIAGNOSTICS / RADIOLOGY: [ ] ASSESSMENT: Small bowel obstruction secondary to incarcerated small bowel through ventral hernia, POA s/p ex/lap with Partial small bowel resection with anastomosis and repair of iatrogenic gastrotomy performed, drains placed, EGD with therapeutic decompression (09/28/24) Dehydration secondary to recurrent vomiting, improving Post operative anion gap metabolic acidosis with respiratory compensation, resolved 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 Decreased urine output, improving Hypertension 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 Dyslipidemia Normocytic anemia Colon cancer s/p hemicolectomy (09/12/24) PLAN: - Start clear liquid diet - Clamp NG tube - MARITO drains to be managed by surgery - Discontinue bicarb drip per nephrology - Strict I&O - If urine output does not improve by midday, will order bladder scan and in & out catheter - Decrease NS to 125 cc/hr - PRN medication for pain management - Repeat lactic acid at 1300 - Heparin for DVT prophylaxis - Colorectal surgery consulted, appreciate recommendations - Nephrology consulted, appreciate recommendations - PT to evaluate patient - Case management to assist with SNF placement Disposition: Pending post op course, improvement in clinical status, SNF placement VINAY CUADRA MD Oct 01, 2024 13:29
--- NOTE | 2024-10-01 14:16 | PN ---
NEPHROLOGY PROGRESS NOTE Date/Time Patient Seen: Oct 01, 2024 Reason for Consultation: 14:15 SUBJECTIVE: This is an 83-year-old male with history of known colon cancer. The patient is status post hemicolectomy. The patient presented to the hospital with abdominal pain and distention. The patient with significant nausea, vomiting. Laboratory values revealed an elevated BUN and creatinine above his baseline. The patient's workup was consistent with bowel obstruction S/P exploratory laparotomy with repair of a herniated and strangulated bowel The patient's creatinine did stabilize overnight. He remains on the IV hydration. Urine output has been marginal Continues NGT to low intermittent suction. Has been started on clear liquid He was seen in the medical floor, in no acute distress Family at the bedside Prognosis remains guarded REVIEW OF SYSTEMS: GENERAL: Positive for generalized weakness NEUROLOGIC: Negative for any blurry vision, blind spots, double vision, facial asymmetry, dysphagia, dysarthria, hemiparesis, hemisensory deficits, vertigo, ataxia. HEENT: Negative for any head trauma, neck trauma, neck stiffness, photophobia, phonophobia, sinusitis, rhinitis. CARDIAC: Negative for any chest pain, dyspnea on exertion, paroxysmal nocturnal dyspnea, peripheral edema. PULMONARY: Negative for any shortness of breath, wheezing, COPD, or TB exposure. GASTROINTESTINAL: Negative for any abdominal pain, nausea, vomiting, bright red blood per rectum, melena. GENITOURINARY: Negative for any dysuria, hematuria, incontinence. INTEGUMENTARY: Negative for any rashes, cuts, insect bites. RHEUMATOLOGIC: Negative for any joint pains, photosensitive rashes, history of vasculitis or kidney problems. HEMATOLOGIC: Negative for any abnormal bruising, frequent infections or bleeding. Vital Signs (last 8hr) Date Time Temp Pulse Resp B/P (MAP) Pulse Ox O2 Delivery O2 Flow Rate FiO2 09/30/24 12:00 98.2 81 16 134/66 94 Nasal Cannula 1.0 22 09/30/24 10:16 128/63 09/30/24 08:00 98.1 83 20 129/63 95 Nasal Cannula 1.0 22 PHYSICAL EXAM: GENERAL: Alert and oriented x 3. No acute distress. Well-nourished. EYES: EOMI. Anicteric. HENT: Moist mucous membranes. No scleral icterus. No cervical lymphadenopathy. LUNGS: Clear to auscultation bilaterally. No accessory muscle use. CARDIOVASCULAR: Regular rate and rhythm. No murmur. No JVD. ABDOMEN: Soft, non-tender and non-distended. No palpable masses. EXTREMITIES: No edema. Non-tender. SKIN: No rashes or lesions. Warm. NEUROLOGIC: No focal neurological deficits. CN II-XII grossly intact, but not individually tested. PSYCHIATRIC: Cooperative. Appropriate mood and affect. Current Medications Medications (Trade) Dose Ordered Sig/Juanita Route PRN Reason Start Time Stop Time Status Last Admin Dose Admin Acetaminophen (TYLenol 325MG TAB) 650 mg Q4H PRN PO MILD PAIN (1-3) 09/28/24 07:00 10/28/24 06:59 Acetaminophen (TYLenol 325MG TAB) 650 mg Q6H PRN PO TEMPERATURE GREATER THAN 101.5 09/28/24 07:00 10/28/24 06:59 Acetaminophen/ Hydrocodone Bitart (NORco 5/325MG) 1 tab Q4H PRN PO MODERATE PAIN (4-6) 09/28/24 07:00 10/03/24 06:59 Acetaminophen/ Hydrocodone Bitart (NORco 5/325MG) 2 tab Q4H PRN PO SEVERE PAIN (7-10) 09/28/24 07:00 10/03/24 06:59 Al Hydroxide/Mg Hydroxide (MAALox PLUS 30ML) 30 ml Q6H PRN PO INDIGESTION 09/28/24 07:00 10/28/24 06:59 Aspirin (Aspirin 81mg Chew Tab) 81 mg DAILY PO 09/28/24 09:00 10/28/24 08:59 09/30/24 10:16 81 MG Atorvastatin Calcium (LIPItor 40MG) 40 mg HS PO 09/28/24 21:00 10/28/24 20:59 09/29/24 20:28 40 MG Benzocaine (Hurricaine/ [place] 20% [place]) 50 mcg ONCE TP 09/27/24 16:30 09/28/24 07:12 DC 09/27/24 18:40 1 MCG Carvedilol (Coreg 12.5MG) 12.5 mg BID PO 09/28/24 09:00 10/28/24 08:59 09/30/24 10:16 12.5 MG Cefepime HCl (MAXipime 1 GM vial) 1 gm Q24H IVPB 09/29/24 09:30 10/09/24 09:29 09/30/24 10:15 1 GM Cefepime HCl (MAXipime 2 gm vial) 2 gm Q8H IVPB 09/28/24 09:30 09/28/24 09:15 DC Diphenhydramine HCl (BENAdryl CAP) 25 mg Q4H PRN PO MILD ITCHING/RASH 09/28/24 07:00 10/28/24 06:59 Diphenhydramine HCl (BENAdryl INJ) 25 mg Q6H PRN IV SEVERE ITCHING/RASH 09/28/24 07:00 10/28/24 06:59 EZETIMIBE (Zetia) 10 mg DAILY PO 09/28/24 09:00 10/28/24 08:59 09/30/24 10:16 10 MG Famotidine (Pepcid 20mg Vial) 20 mg BID PRN IV NAUSEA/VOMITING 09/28/24 07:00 09/28/24 07:17 DC Famotidine (Pepcid 20mg Tab) 20 mg Q48H PO 09/28/24 09:00 10/28/24 08:59 09/30/24 10:16 20 MG Guaifenesin/ Dextromethorphan (RobiTUSSin DM 200/20MG 10ML) 10 ml Q4H PRN PO COUGH 09/28/24 07:00 10/28/24 06:59 Heparin Sodium (Porcine) (HEParin 5,000 UNIT VIAL) 5,000 unit TID SQ 09/28/24 09:00 10/28/24 08:59 09/30/24 10:19 5,000 UNIT Hydromorphone HCl (DiLAUDid 0.5MG INJ) 0.5 mg Q4H PRN IV SEVERE PAIN (7-10) IF NPO 09/28/24 07:00 10/03/24 06:59 Lactated Ringer's 1,000 ml @ 125 mls/hr Q8H IV 09/30/24 14:30 10/30/24 14:29 Lactulose (Constulose 20gm/ 30ml Udcup) 20 gm BID PRN PO CONSTIPATION 09/28/24 07:00 10/28/24 06:59 Nitroglycerin (Nitrostat) 0.4 mg PROTOCOL PRN SL CHEST PAIN 09/28/24 07:00 10/28/24 06:59 Ondansetron HCl (zoFRAN 4MG INJ) 4 mg Q6H PRN IV NAUSEA/VOMITING 09/28/24 07:00 10/28/24 06:59 Sodium Bicarbonate 150 meq/Dextrose 1,150 ml @ 150 mls/hr Q7H40M IVP 09/29/24 10:00 09/30/24 14:02 DC 09/30/24 10:17 150 MLS/HR Sodium Chloride 1,000 ml @ 50 mls/hr Q20H IV 09/28/24 07:00 10/28/24 06:59 09/29/24 03:14 100 MLS/HR Sodium Chloride 2,000 ml @ 0 mls/hr Q0M IV 09/28/24 14:30 09/30/24 14:05 DC 09/28/24 17:42 0 MLS/HR LABORATORY: [ ] Hematology Labs: Test 10/01/24 03:37 Range/Units White Blood Count 10.9 H 4.8-10.8 K/uL Red Blood Count 3.13 L 4.50-6.20 MIL/uL Hemoglobin 9.5 L 14.0-18.0 g/dL Hematocrit 29.6 L 42-54 % Mean Corpuscular Volume 94.6 79-99 fL Mean Corpuscular Hemoglobin 30.4 27.0-33.0 pg Mean Corpuscular Hemoglobin Concent 32.1 32.0-36.0 g/dL Red Cell Distribution Width 14.3 11.0-15.5 % Platelet Count 336 130-400 K/uL Mean Platelet Volume 10.2 7.5-10.5 fL Immature Granulocyte % (Auto) 0.6 0-1 % Neutrophils (%) (Auto) 90.9 H 40.0-77.0 % Lymphocytes (%) (Auto) 5.2 L 21.0-51.0 % Monocytes (%) (Auto) 3.1 3.0-13.0 % Eosinophils (%) (Auto) 0.1 0.0-8.0 % Basophils (%) (Auto) 0.1 0.0-5.0 % Neutrophils # (Auto) 9.9 H 1.8-7.7 K/uL Lymphocytes # (Auto) 0.6 L 1.0-4.8 K/uL Monocytes # (Auto) 0.3 0.1-1.0 K/uL Eosinophils # (Auto) 0.01 0.00-0.70 K/uL Basophils # (Auto) 0.01 0.00-0.20 K/uL Absolute Immature Granulocyte (auto 0.06 0-1 K/uL Nucleated Red Blood Cells 0.0 0.0-0.19 % Chemistry Labs: Test 10/01/24 03:37 09/30/24 03:42 Range/Units Sodium Level 142 136-145 mmol/L Potassium Level 3.4 L 3.5-5.1 mmol/L Chloride Level 105 101-111 mmol/L Carbon Dioxide Level 31 21-32 mmol/L Blood Urea Nitrogen 71 H 7-18 mg/dL Creatinine 3.7 H 0.5-1.3 mg/dL Glomerular Filtration Rate Calc 16 >90 mL/min Random Glucose 127 #H 70-105 mg/dL Total Calcium 6.0 *L 8.5-10.1 mg/dL Phosphorus Level 2.3 L 2.5-4.9 mg/dL Magnesium Level 1.20 L 1.80-2.40 mg/dL Iron Level 24 #L 65-175 mcg/dL Total Iron Binding Capacity 77 L 250-450 mcg/dL Percent Iron Saturation 31.1 30-44 % DIAGNOSTICS / RADIOLOGY: REASON: CREPITUS POST-OP ORDERING PHYSICIAN: MAURICIO UNGER CRNA PROCEDURE: CXR1VW - CHEST 1VW Exam Type: CHEST 1VW Clinical Information: CREPITUS POST-OP Comparison: None Findings: Extensive chest wall emphysema. The lungs are clear of infiltrates. The heart is normal in size. The bony and soft tissue structures of the chest are unremarkable. Impression: Clear lungs. Extensive chest wall emphysema. DICTATED BY: PATO BERGER MD DATE: 09/28/24 3634 REASON: abd distension ORDERING PHYSICIAN: NOREEN SHERIDAN MD PROCEDURE: ABD PEL WO - CT ABDOMEN/PELVIS W/O CONTRAST CT ABDOMEN WITHOUT CONTRAST. CT PELVIS WITHOUT CONTRAST. INDICATION: Abdominal distention TECHNIQUE: Routine transaxial imaging using 5 mm slice thickness through the abdomen and pelvis without the administration of IV contrast. Thin slice reconstructions are also provided. Coronal and sagittal reformatted images acquired for interpretation. CT was performed with one or more of the following dose reduction techniques: Automated exposure control, adjustment of the mA and/or kV according to patient size, or use of iterative reconstruction technique. COMPARISON: None FINDINGS: ON NONCONTRAST IMAGING: ABDOMEN: Heart size is normal. Trace pericardial fluid inferolaterally on the right. Large aggregates of "tree-in-bud" micronodular opacities scattered throughout the right lung. Left lung base appears normal. Stomach is markedly distended with mostly fluid and a small amount of ingested food material and air. No abnormal renal calcifications, hydronephrosis, perinephric inflammation, or proximal hydroureter detected. Moderate bilateral renal atrophy. 2.1 cm simple left renal cyst at the upper pole. 1.1 cm simple cyst at the lower pole of the left kidney. Subcentimeter proteinaceous or hemorrhagic cyst at the mid to lower portion of the left kidney. The liver is normal in size and smooth in contour without biliary duct dilation. Trace free fluid within the right upper abdomen. The spleen is normal in size and attenuation. Miniscule calcific gallbladder fundal stone. The pancreas appears normal without pancreatic duct dilation. The adrenal glands appear normal. No significant abdominal, retrocrural or retroperitoneal adenopathy noted. No evidence for intra-abdominal free air or organized fluid collection. Mild calcific plaque is noted along the abdominal aortic and iliac vessel sanchez without aneurysmal dilation. Tremendous amount of subcutaneous emphysema along the anterior right greater than left abdomen and pelvis including extension into along both groins and scrotal soft tissues. PELVIS: Small fat and fluid-containing nonobstructing right inguinal hernia. No abnormal calcifications within the urinary bladder or distal ureters. No evidence for free air or organized pelvic fluid collection. No significant pelvic adenopathy detected. Fluid-filled dilated small bowel loops identified. Transition point is at the anterolateral right lower abdominal fat and small bowel loop-containing nonobstructing hernia with abdominal wall defect measuring up to 1.5 cm.. Several diverticula along the distal colon. Splenic flexure anastomosis appears normal. 4.5 cm air and fluid-filled diverticulum arises proximally off the duodenal sweep. Visible osseous structures are intact. IMPRESSION: 1. Small fat and small bowel loop-containing anterolateral right lower abdominal wall hernia contributing to acute small bowel obstruction, without pneumatosis or pneumoperitoneum. Small fat and fluid-containing nonobstructing right inguinal hernia. 2. Tremendous amount of subcutaneous emphysema along the anterior right greater than left abdomen and pelvis including extension into along both groins and scrotal soft tissues. 3. Nontypical right lung pneumonia or other small airways disease process. 4. Distal colonic diverticulosis. 5. Cholelithiasis. 6. Moderate bilateral renal atrophy. 7. Trace pericardial fluid inferolaterally on the right. 8. Trace free fluid within the right upper abdomen. 9. Additional minor findings and pertinent negatives as reported. 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 We have reviewed external records in detail Require close monitoring of renal function and electrolytes Order CBC, CMP, and electrolytes in am Continue with antibiotics Renal diabetic diet BiPAP as necessary, for respiratory distress Monitor blood pressure adjust medication doses as needed Avoid hypotensive episodes May use Dilaudid 0.5 mg IV every 6 hours as needed for severe pain Monitor blood sugars Strict intake, output, and daily weight should be monitored Please renally adjust medications Avoid nephrotoxic and nonsteroidal drugs Avoid contrast if possible Will continue to monitor renal function, anemia, electrolytes Treatment plan discussed with patient Questions were answered We have discussed with the other team physicians in detail about the care plan We will continue to monitor the patient closely ATTESTATION BY PHYSICIAN I have seen and examined the patient. I reviewed the documentation, medical decision making, and treatment plan as noted by the mid-level provider above. I agree with the findings and plan of care. CHRISSY NEWTON MD, [facility] Oct 01, 2024 14:16
--- NOTE | 2024-10-01 14:23 | NUR ---
DC PLAN VISITED WITH PATIENT AND SPOUSE. EXPLAINED ABOUT TRIGGER FOR SNF. GAVE LIST OF FACILITIES. SAID WOULD LOOK INTO THEM AND GET BACK WITH CM. PER NURSE STILL HAVING TROUBLE ADVANCING DIET BUT IS PASSING GAS AND HAD BM. Addendum: 10/01/24 at 1430 by SOTO MEANS RN CM Amended: Links added.
[2024-10-01] MEDS: BUDESONIDE 0.5 MG/2 ML INH IH SCH (18:31)
[2024-10-02] VITALS (14 sets, daily range): BP systolic 125–139; BP diastolic 43–73; PULSE 69–90; RESP 16–20; TEMP 97.4–97.7; O2SAT 97–100
[2024-10-02 04:22] LABS: BASOPHILS # (AUTO) 0.01 K/uL (0.00-0.20); BASOPHILS % (AUTO) 0.1 % (0.0-5.0); EOSINOPHILS # (AUTO) 0.04 K/uL (0.00-0.70); EOSINOPHILS % (AUTO) 0.3 % (0.0-8.0); HEMATOCRIT 29.2 % (42-54); IMMATURE GRANULOCYTE ABSOLUTE 0.04 K/uL (0-1); LYMPHOCYTES # (AUTO) 0.8 K/uL (1.0-4.8); LYMPHOCYTES % (AUTO) 6.7 % (21.0-51.0); MEAN CORPUSCULAR HEMOGLOBIN 31.4 pg (27.0-33.0); MEAN CORPUSCULAR HGB CONC 32.5 g/dL (32.0-36.0); MEAN CORPUSCULAR VOLUME 96.4 fL (79-99); MONOCYTES # (AUTO) 0.4 K/uL (0.1-1.0); MONOCYTES % (AUTO) 3.1 % (3.0-13.0); NEUTROPHILS # (AUTO) 10.6 K/uL (1.8-7.7); NEUTROPHILS % (AUTO) 89.5 % (40.0-77.0); PLATELET COUNT (AUTO) 367 K/uL (130-400); RED BLOOD CELL COUNT(AUTO) 3.03 MIL/uL (4.50-6.20); RED CELL DISTRIBUTION WIDTH 14.2 % (11.0-15.5); WHITE BLOOD COUNT (AUTO) 11.8 K/uL (4.8-10.8)
[2024-10-02 05:05] LABS: CREATININE 3.6 mg/dL (0.5-1.3); MAGNESIUM 1.3 mg/dL (1.80-2.40); PHOSPHORUS 3.3 mg/dL (2.5-4.9)
--- NOTE | 2024-10-02 08:40 | PN ---
FOLLOWUP PROGRESS NOTE SUBJECTIVE: An 83-year-old male with a history of previous hemicolectomy. The patient presented with small bowel obstruction, status post surgery. He has had acute on chronic renal failure in the hospital. Creatinine continues to stabilize. He remains on IV fluids. The patient has been started on a clear liquid diet and the patient is being seen as a followup visit for all of the above. REVIEW OF SYSTEMS: GENERAL: He is feeling improved. HEENT: No change in vision. No change in hearing. CARDIOVASCULAR: There is no current chest pain or palpitations. PULMONARY: He denies any shortness of breath. GASTROINTESTINAL: As described above. MUSCULOSKELETAL: Complains of weakness. PHYSICAL EXAMINATION:. VITAL SIGNS: Blood pressure 139/73, pulse 70s, afebrile. GENERAL: Chronically ill male, elderly, lying in bed on the medical floor. HEENT: Head is atraumatic. Pupils equal, roving to light. Oropharynx is without exudate. Nares clear. NECK: There is no JVP. There is no thyromegaly. CARDIOVASCULAR: Regular. There is no S3, S4 gallop. LUNGS: Coarse with equal thoracic movement. ABDOMEN: Soft, nondistended, nontender. EXTREMITIES: Reveal no clubbing, no cyanosis. NEUROLOGIC: He is awake. He is alert. LABORATORY DATA: Hemoglobin 9.5, hematocrit 29, white cell count 11,000. Sodium 141, potassium is 3, BUN 72, creatinine 3.6. IMPRESSION: * Acute on chronic renal dysfunction. * Small-bowel obstruction, status post surgery. * Electrolyte abnormalities. * Hypertension. PLAN: The patient does have a history of known chronic renal insufficiency. The patient's creatinine continues to slowly improve. The patient remains on the IV hydration. We will follow closely. The patient's electrolytes have all been aggressively repleted. We will continue to follow the patient closely. The patient is encouraged with his therapy. TID: [id number] RECEIPT: [id number]
--- NOTE | 2024-10-02 10:36 | PN ---
COLOR[facility] PROGRESS NOTE Date of Visit: Oct 02, 2024 Time of Visit: 10:36 Events / Notes: [Patient on POD 2 from robotic assisted diagnostic la with partial small bowel resection with primary anastomosis, primary repair of incisional hernia, repair of iatrogenic gastrotomy, EGD with therapeutic decompression of gastric content, and intraabdominal drain placement x 2. NO acute events overnight. VSS. WBC decreased from 13.3 to 11.6 this am. HGB 8.7, down from 9.1 yesterday. Examined at bedside. He is on O2 at 2l via NC. His respirations are unlabored. BBS clear. Abd is soft and not distended. 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 BS to upper abd but hypoactive to lower. 2 inches of wick packing removed and wound care done. MARITO to mid abdomen with 50 ml of serous output. MARITO to left upper abdomen with 70 ml of serous output at time of exam. Catherine cath with cyu. Poc discussed. Pt to assist with movement and ambulation. Patient and spouse agree. 10/01/24: No acute events overnight. Patient's VSS. He has tolerated sips of water without any n/v. NG tube to LIS and had 100ml in the past 24 hours. BBS are clear. O2 @ 2l via NC; Abd soft and not distended with active BS throughout. +BM x 1 reported by patient. Incisions D&I. MARITO drains x2 with serous output. Plan to advance diet to clears. I/S exercises encouraged. PT to mobilize and ambulate patient. Ng tube to remain in place for now. ] Review of Systems: CONSTITUTIONAL: No malaise or change in sensation of wellbeing. ENMT: No rhinorrhea, otorrhea, sinus pain, ear ache. CARDIOVASCULAR: No angina, palpitations, orthopnea or paroxysmal dyspnea. RESPIRATORY: No SOB. GASTROINTESTINAL: No abdominal pain, nausea, vomiting, diarrhea, hematemesis, melena or change in the patient's habitual bowel movements consistency/number. GENITOURINARY: No dysuria, hematuria or change in bladder continence. MUSCULOSKELETAL: No new muscle pain or decrease in muscular strength. No new joint swelling, redness or tenderness. SKIN: No new rash. Physical Exam: GEN: Awake, alert, oriented in person, time and place, and in no acute distress. HEENT: No rhinorrhea. Oral pharyngeal mucosa is pink, moist and within normal limits. Neck is supple CHEST: Inspection, palpation of the chest were unremarkable. Lung auscultation revealed normal breath sounds bilaterally. CARDIAC: PMI is within normal limits. Heart sounds are regular.. ABD: Soft, non-tender and not distended. No peritoneal signs on palpation. No organomegaly. Active bs throughout. MARITO drain to mid abdomen and Marito drain to left side of abdomen with serous output. Catherine cath draining cyu via gravity. EXT: No cyanosis or clubbing. No edema. Scds in place. SKIN: Intact. No rashes. JOINTS: No evidence of synovitis or acute arthritis. NEURO: Alert and oriented to name, place and person. No focal motor deficits. Normal speech. Gait not assessed. Strength is normal. Vital Signs (last 8hr) Date Time Temp Pulse Resp B/P (MAP) Pulse Ox O2 Delivery O2 Flow Rate FiO2 10/02/24 09:35 139/73 10/02/24 08:13 97.3 76 19 139/73 97 Nasal Cannula 2.0 10/02/24 07:16 77 18 N/Cannula Low lpm 2.0 10/02/24 07:15 77 18 10/02/24 04:48 Nasal Cannula 2.0 10/02/24 04:44 97.7 77 19 135/68 99 Room Air Laboratory: [ ] Laboratory: Test 10/02/24 03:30 Range/Units White Blood Count 11.8 H 4.8-10.8 K/uL Red Blood Count 3.03 L 4.50-6.20 MIL/uL Hemoglobin 9.5 L 14.0-18.0 g/dL Hematocrit 29.2 L 42-54 % Mean Corpuscular Volume 96.4 79-99 fL Mean Corpuscular Hemoglobin 31.4 27.0-33.0 pg Mean Corpuscular Hemoglobin Concent 32.5 32.0-36.0 g/dL Red Cell Distribution Width 14.2 11.0-15.5 % Platelet Count 367 130-400 K/uL Mean Platelet Volume 10.4 7.5-10.5 fL Immature Granulocyte % (Auto) 0.3 0-1 % Neutrophils (%) (Auto) 89.5 H 40.0-77.0 % Lymphocytes (%) (Auto) 6.7 L 21.0-51.0 % Monocytes (%) (Auto) 3.1 3.0-13.0 % Eosinophils (%) (Auto) 0.3 0.0-8.0 % Basophils (%) (Auto) 0.1 0.0-5.0 % Neutrophils # (Auto) 10.6 H 1.8-7.7 K/uL Lymphocytes # (Auto) 0.8 L 1.0-4.8 K/uL Monocytes # (Auto) 0.4 0.1-1.0 K/uL Eosinophils # (Auto) 0.04 0.00-0.70 K/uL Basophils # (Auto) 0.01 0.00-0.20 K/uL Absolute Immature Granulocyte (auto 0.04 0-1 K/uL Nucleated Red Blood Cells 0.0 0.0-0.19 % Sodium Level 141 136-145 mmol/L Potassium Level 3.0 *L 3.5-5.1 mmol/L Chloride Level 104 101-111 mmol/L Carbon Dioxide Level 30 21-32 mmol/L Blood Urea Nitrogen 72 H 7-18 mg/dL Creatinine 3.6 H 0.5-1.3 mg/dL Glomerular Filtration Rate Calc 16 >90 mL/min Random Glucose 107 H 70-105 mg/dL Total Calcium 6.3 L 8.5-10.1 mg/dL Phosphorus Level 3.3 2.5-4.9 mg/dL Magnesium Level 1.30 L 1.80-2.40 mg/dL Current Medications Medications (Trade) Dose Ordered Sig/Juanita Route PRN Reason Start Time Stop Time Status Last Admin Dose Admin Acetaminophen (TYLenol 325MG TAB) 650 mg Q4H PRN PO MILD PAIN (1-3) 09/28/24 07:00 10/28/24 06:59 Acetaminophen (TYLenol 325MG TAB) 650 mg Q6H PRN PO TEMPERATURE GREATER THAN 101.5 09/28/24 07:00 10/28/24 06:59 Acetaminophen/ Hydrocodone Bitart (NORco 5/325MG) 1 tab Q4H PRN PO MODERATE PAIN (4-6) 09/28/24 07:00 10/03/24 06:59 09/30/24 20:33 1 TAB Acetaminophen/ Hydrocodone Bitart (NORco 5/325MG) 2 tab Q4H PRN PO SEVERE PAIN (7-10) 09/28/24 07:00 10/03/24 06:59 Al Hydroxide/Mg Hydroxide (MAALox PLUS 30ML) 30 ml Q6H PRN PO INDIGESTION 09/28/24 07:00 10/28/24 06:59 Albuterol (DUOneb) 1 UDVIAL [id number] 10/01/24 12:00 10/31/24 11:59 10/02/24 07:13 1 UDVIAL Aspirin (Aspirin 81mg Chew Tab) 81 mg DAILY PO 09/28/24 09:00 10/28/24 08:59 10/02/24 09:34 81 MG Atorvastatin Calcium (LIPItor 40MG) 40 mg HS PO 09/28/24 21:00 10/28/24 20:59 10/01/24 19:56 40 MG Benzocaine (Hurricaine/ [place] 20% [place]) 50 mcg ONCE TP 09/27/24 16:30 09/28/24 07:12 DC 09/27/24 18:40 1 MCG Budesonide (Pulmicort 0.5 Mg/2ml) 0.5 mg BIDRESP 10/01/24 18:00 10/31/24 17:59 10/02/24 07:12 0.5 MG Carvedilol (Coreg 12.5MG) 12.5 mg BID PO 09/28/24 09:00 10/28/24 08:59 10/02/24 09:35 12.5 MG Cefepime HCl (MAXipime 1 GM vial) 1 gm Q24H IVPB 09/29/24 09:30 10/09/24 09:29 10/02/24 08:49 1 GM Cefepime HCl (MAXipime 2 gm vial) 2 gm Q8H IVPB 09/28/24 09:30 09/28/24 09:15 DC Diphenhydramine HCl (BENAdryl CAP) 25 mg Q4H PRN PO MILD ITCHING/RASH 09/28/24 07:00 10/28/24 06:59 Diphenhydramine HCl (BENAdryl INJ) 25 mg Q6H PRN IV SEVERE ITCHING/RASH 09/28/24 07:00 10/28/24 06:59 EZETIMIBE (Zetia) 10 mg DAILY PO 09/28/24 09:00 10/28/24 08:59 10/02/24 09:34 10 MG Famotidine (Pepcid 20mg Vial) 20 mg BID PRN IV NAUSEA/VOMITING 09/28/24 07:00 09/28/24 07:17 DC Famotidine (Pepcid 20mg Tab) 20 mg Q48H PO 09/28/24 09:00 10/28/24 08:59 10/02/24 09:34 20 MG Guaifenesin/ Dextromethorphan (RobiTUSSin DM 200/20MG 10ML) 10 ml Q4H PRN PO COUGH 09/28/24 07:00 10/28/24 06:59 Heparin Sodium (Porcine) (HEParin 5,000 UNIT VIAL) 5,000 unit TID SQ 09/28/24 09:00 10/28/24 08:59 10/02/24 09:41 5,000 UNIT Hydromorphone HCl (DiLAUDid 0.5MG INJ) 0.5 mg Q4H PRN IV SEVERE PAIN (7-10) IF NPO 09/28/24 07:00 10/03/24 06:59 Lactated Ringer's 1,000 ml @ 125 mls/hr Q8H IV 09/30/24 14:30 10/30/24 14:29 10/01/24 21:49 125 MLS/HR Lactulose (Constulose 20gm/ 30ml Udcup) 20 gm BID PRN PO CONSTIPATION 09/28/24 07:00 10/28/24 06:59 Nitroglycerin (Nitrostat) 0.4 mg PROTOCOL PRN SL CHEST PAIN 09/28/24 07:00 10/28/24 06:59 Ondansetron HCl (zoFRAN 4MG INJ) 4 mg Q6H PRN IV NAUSEA/VOMITING 09/28/24 07:00 10/28/24 06:59 Sodium Bicarbonate 150 meq/Dextrose 1,150 ml @ 150 mls/hr Q7H40M IVP 09/29/24 10:00 09/30/24 14:02 DC 09/30/24 10:17 150 MLS/HR Sodium Chloride 1,000 ml @ 50 mls/hr Q20H IV 09/28/24 07:00 10/28/24 06:59 3/21/25 03:14 100 MLS/HR Sodium Chloride 2,000 ml @ 0 mls/hr Q0M IV 09/28/24 14:30 09/30/24 14:05 DC 09/28/24 17:42 0 MLS/HR Assessment: [ Incarcerated small bowel/incisional hernia, small bowel obstruction ] Plan: [Clear liquid diet REport any nausea or vomiting I/S exercises encouraged PT to mobilize patient Monitor urine output Pain meds as needed Antiemetics prn Ng tube to LIS. Clamp for meals and check residual 30 min after meals Please call with questions, concerns, and change in clinical status Appreciate medical management. ] KATELYN BANUELOS COLD ROLLING SUPERVISOR Oct 02, 2024 10:36
--- NOTE | 2024-10-02 12:50 | NUR ---
NURSING NOTE P[employer]ING [employer] REPORTED PATIENT HAS BEEN HAVING EXPLOSIVE, LOOSE STOOLS SINCE THIS MORNING. REPORTS HAVING CHANGED PATIENT TWICE SINCE CHANGE OF SHIFT. PATIENT'S STATES PATIENT UNABLE TO CONTROL BOWEL MOVEMENTS. PATIENT DENIES ANY PAIN OR DISCOMFORT AT THIS TIME. FINDINGS REPORTED TO DR. BADILLO FOR RECOMMENDATIONS. PER DR. BADILLO WILL ROUND LATER THIS PM AND ASSESS PATIENT'S RECORD. NO ORDERS GIVEN AT THIS TIME. WILL CONTINUE TO MONITOR.
[2024-10-02 14:47] LABS: HEMATOCRIT 25.1 % (42-54); MEAN CORPUSCULAR HEMOGLOBIN 30.9 pg (27.0-33.0); MEAN CORPUSCULAR HGB CONC 33.1 g/dL (32.0-36.0); MEAN CORPUSCULAR VOLUME 93.3 fL (79-99); RED BLOOD CELL COUNT(AUTO) 2.69 MIL/uL (4.50-6.20); RED CELL DISTRIBUTION WIDTH 14.1 % (11.0-15.5); WHITE BLOOD COUNT (AUTO) 10.3 K/uL (4.8-10.8)
--- NOTE | 2024-10-02 15:08 | PN ---
[facility] PROGRESS NOTE Date of Service: Oct 02, 2024 Time of Service: 15:04 SUBJECTIVE: 09/29 patient seen at bedside, no acute events overnight. He is status post exploratory laparotomy with repair of a herniated and strangulated bowel my postop day one. There appeared to be a perforation of the stomach during insertion of the 1st trocar due to the obstruction and the patient's still be significantly distended, the defect was identified and, the stomach was decompressed via EGD and then the defect was repaired. The remainder of the procedure was completed without complications. The patient tolerated the procedure well, see the op note for more details. Postoperatively the patient has had decreased urine output, he has had multiple bladder scans that have not shown significant urine within the bladder. He has had a proximally 290 cc output from his MARITO drain. We will increase his IV fluids to 150 cc/hour and recheck at approximately mid day. If he has not had any significant urine output but continues to have appreciable output from his MARITO drains we will consider sending for a body fluid creatinine to assess for a transected ureter. He has been afebrile, hemodynamically stable saturating well on 2 L nasal cannula, hemoglobin decreased from 9.5 down to 9.1, WBC increased from 9.1 up to 13.3, creatinine improved from 6.1 down to 5.1, CO2 decreased from 26 down to 16, an ABG+ was ordered and is consistent with anion gap metabolic acidosis compensated by respiratory alkalosis, lactic acid is barely elevated, these findings may suggest underlying renal tubular acidosis, patient has been initiated on bicarb drip, remainder of his labs are relatively unremarkable. Further care per colorectal surgery 09/30 Pt seen at bedside, no acute events overnight. He is status post exploratory laparotomy with repair of a herniated and strangulated bowel my postop day 2. Catherine catheter placed yesterday, 600 cc/out immediately after. NG tube drained 160 cc, MARITO drain output decreasing. WBC decreased from 13.3 down to 11.6, Hgb decreased from 9.1 down to 8.7, potassium decreased at 3.3, will be repleted according to protocol, creatinine improved from 5.1 down to 4.3. 10/01 patient seen at bedside, no acute events overnight. He is status post exploratory laparotomy with repair of a herniated and strangulated bowel my postop day 3. NG tube has been clamped and patient is started on clear liquid diet. Patient with notable wheeze today at bedside, we will start on DuoNebs and budesonide. He has been afebrile, hemodynamically stable saturating well on 2 L nasal cannula. WBC improved from 11.6 down to 10.9, hemoglobin improved from 8.7 up to 9.5, creatinine improved from 4.3 down to 3.7. Remainder of his labs are relatively unremarkable. 10/02 patient is seen and examined at bedside, case discussed with the RN, patient had three episodes of loose stool yesterday and three today. During my visit he is getting supportive care with IV fluids, awake, following commands, he is on full liquid diet, tolerating well, no nausea, no vomiting, no abdominal pain. He is getting IV antibiotics at the time of my visit. at bedside. We will add lactobacillus one capsule p.o. b.i.d., we will check stool for C difficile. Patient requesting antidiarrheal medication, we will give one time dose of Imodium. REVIEW OF SYSTEMS 12 point ROS negative unless noted in HPI PHYSICAL EXAM GENERAL APPEARANCE: The patient is awake, alert, and oriented, in no acute cardiopulmonary distress. NEUROLOGICAL: Cranial nerves II-XII grossly intact. Motor is 5/5 in bilateral upper and lower extremities proximal to distal. No sensory deficits. HEENT: Face is symmetric. Pupils are equal and reactive. Extraocular movements are intact. NECK: Supple. No JVD. No thyromegaly. No submental, submandibular, pre- /postauricular, occipital or supraclavicular lymphadenopathy. CHEST: Normal chest expansion. No Telemetry. LUNGS: Absence of any rales, rhonchi or any wheezing. CARDIOVASCULAR: Regular. S1 and S2 normal. No appreciable rubs, murmurs or gallops. ABDOMEN: Soft, nontender, and nondistended. There is no rebound, voluntary guarding, or rigidity. : Deferred. No Catherine. EXTREMITIES: Non-edematous and not cyanotic. No clubbing. Good capillary refill. SKIN: No skin breakdown. Vital Signs (last 8hr) Date Time Temp Pulse Resp B/P (MAP) Pulse Ox O2 Delivery O2 Flow Rate FiO2 10/02/24 11:25 90 18 10/02/24 11:20 97.5 78 19 126/43 100 Nasal Cannula 2.0 10/02/24 09:35 139/73 10/02/24 08:13 97.3 76 19 139/73 97 Nasal Cannula 2.0 10/02/24 08:00 97 Nasal Cannula* 2 28 10/02/24 07:16 77 18 N/Cannula Low lpm 2.0 10/02/24 07:15 77 18 LABS: Laboratory: Test 10/02/24 14:40 10/02/24 03:30 Range/Units White Blood Count 10.3 4.8-10.8 K/uL Red Blood Count 2.69 L 4.50-6.20 MIL/uL Hemoglobin 8.3 L 14.0-18.0 g/dL Hematocrit 25.1 L 42-54 % Mean Corpuscular Volume 93.3 79-99 fL Mean Corpuscular Hemoglobin 30.9 27.0-33.0 pg Mean Corpuscular Hemoglobin Concent 33.1 32.0-36.0 g/dL Red Cell Distribution Width 14.1 11.0-15.5 % Platelet Count 277 130-400 K/uL Mean Platelet Volume 9.7 7.5-10.5 fL Nucleated Red Blood Cells 0.0 0.0-0.19 % Immature Granulocyte % (Auto) 0.3 0-1 % Neutrophils (%) (Auto) 89.5 H 40.0-77.0 % Lymphocytes (%) (Auto) 6.7 L 21.0-51.0 % Monocytes (%) (Auto) 3.1 3.0-13.0 % Eosinophils (%) (Auto) 0.3 0.0-8.0 % Basophils (%) (Auto) 0.1 0.0-5.0 % Neutrophils # (Auto) 10.6 H 1.8-7.7 K/uL Lymphocytes # (Auto) 0.8 L 1.0-4.8 K/uL Monocytes # (Auto) 0.4 0.1-1.0 K/uL Eosinophils # (Auto) 0.04 0.00-0.70 K/uL Basophils # (Auto) 0.01 0.00-0.20 K/uL Absolute Immature Granulocyte (auto 0.04 0-1 K/uL Sodium Level 141 136-145 mmol/L Potassium Level 3.0 *L 3.5-5.1 mmol/L Chloride Level 104 101-111 mmol/L Carbon Dioxide Level 30 21-32 mmol/L Blood Urea Nitrogen 72 H 7-18 mg/dL Creatinine 3.6 H 0.5-1.3 mg/dL Glomerular Filtration Rate Calc 16 >90 mL/min Random Glucose 107 H 70-105 mg/dL Total Calcium 6.3 L 8.5-10.1 mg/dL Phosphorus Level 3.3 2.5-4.9 mg/dL Magnesium Level 1.30 L 1.80-2.40 mg/dL Current Medications Medications (Trade) Dose Ordered Sig/Juanita Route PRN Reason Start Time Stop Time Status Last Admin Dose Admin Acetaminophen (TYLenol 325MG TAB) 650 mg Q4H PRN PO MILD PAIN (1-3) 09/28/24 07:00 10/28/24 06:59 Acetaminophen (TYLenol 325MG TAB) 650 mg Q6H PRN PO TEMPERATURE GREATER THAN 101.5 09/28/24 07:00 10/28/24 06:59 Acetaminophen/ Hydrocodone Bitart (NORco 5/325MG) 1 tab Q4H PRN PO MODERATE PAIN (4-6) 09/28/24 07:00 10/03/24 06:59 09/30/24 20:33 1 TAB Acetaminophen/ Hydrocodone Bitart (NORco 5/325MG) 2 tab Q4H PRN PO SEVERE PAIN (7-10) 09/28/24 07:00 10/03/24 06:59 Al Hydroxide/Mg Hydroxide (MAALox PLUS 30ML) 30 ml Q6H PRN PO INDIGESTION 09/28/24 07:00 10/28/24 06:59 Albuterol (DUOneb) 1 UDVIAL [id number] IH 10/01/24 12:00 10/31/24 11:59 10/02/24 11:25 1 UDVIAL Aspirin (Aspirin 81mg Chew Tab) 81 mg DAILY PO 09/28/24 09:00 10/28/24 08:59 10/02/24 09:34 81 MG Atorvastatin Calcium (LIPItor 40MG) 40 mg HS PO 09/28/24 21:00 10/28/24 20:59 10/01/24 19:56 40 MG Benzocaine (Hurricaine/ [place] 20% [place]) 50 mcg ONCE TP 09/27/24 16:30 09/28/24 07:12 DC 09/27/24 18:40 1 MCG Budesonide (Pulmicort 0.5 Mg/2ml) 0.5 mg BIDRESP IH 10/01/24 18:00 10/31/24 17:59 10/02/24 07:12 0.5 MG Carvedilol (Coreg 12.5MG) 12.5 mg BID PO 09/28/24 09:00 10/28/24 08:59 10/02/24 09:35 12.5 MG Cefepime HCl (MAXipime 1 GM vial) 1 gm Q24H IVPB 09/29/24 09:30 10/09/24 09:29 10/02/24 08:49 1 GM Cefepime HCl (MAXipime 2 gm vial) 2 gm Q8H IVPB 09/28/24 09:30 09/28/24 09:15 DC Diphenhydramine HCl (BENAdryl CAP) 25 mg Q4H PRN PO MILD ITCHING/RASH 09/28/24 07:00 10/28/24 06:59 Diphenhydramine HCl (BENAdryl INJ) 25 mg Q6H PRN IV SEVERE ITCHING/RASH 09/28/24 07:00 10/28/24 06:59 EZETIMIBE (Zetia) 10 mg DAILY PO 09/28/24 09:00 10/28/24 08:59 10/02/24 09:34 10 MG Famotidine (Pepcid 20mg Vial) 20 mg BID PRN IV NAUSEA/VOMITING 09/28/24 07:00 09/28/24 07:17 DC Famotidine (Pepcid 20mg Tab) 20 mg Q48H PO 09/28/24 09:00 10/28/24 08:59 10/02/24 09:34 20 MG Guaifenesin/ Dextromethorphan (RobiTUSSin DM 200/20MG 10ML) 10 ml Q4H PRN PO COUGH 09/28/24 07:00 10/28/24 06:59 Heparin Sodium (Porcine) (HEParin 5,000 UNIT VIAL) 5,000 unit TID SQ 09/28/24 09:00 10/28/24 08:59 10/02/24 14:09 5,000 UNIT Hydromorphone HCl (DiLAUDid 0.5MG INJ) 0.5 mg Q4H PRN IV SEVERE PAIN (7-10) IF NPO 09/28/24 07:00 10/03/24 06:59 Lactated Ringer's 1,000 ml @ 125 mls/hr Q8H IV 09/30/24 14:30 10/30/24 14:29 10/02/24 14:08 125 MLS/HR Lactulose (Constulose 20gm/ 30ml Udcup) 20 gm BID PRN PO CONSTIPATION 09/28/24 07:00 10/28/24 06:59 Nitroglycerin (Nitrostat) 0.4 mg PROTOCOL PRN SL CHEST PAIN 09/28/24 07:00 10/28/24 06:59 Ondansetron HCl (zoFRAN 4MG INJ) 4 mg Q6H PRN IV NAUSEA/VOMITING 09/28/24 07:00 10/28/24 06:59 Sodium Bicarbonate 150 meq/Dextrose 1,150 ml @ 150 mls/hr Q7H40M IVP 09/29/24 10:00 09/30/24 14:02 DC 09/30/24 10:17 150 MLS/HR Sodium Chloride 1,000 ml @ 50 mls/hr Q20H IV 09/28/24 07:00 10/28/24 06:59 09/29/24 03:14 100 MLS/HR Sodium Chloride 2,000 ml @ 0 mls/hr Q0M IV 09/28/24 14:30 09/30/24 14:05 DC 09/28/24 17:42 0 MLS/HR DIAGNOSTICS / RADIOLOGY: [ ] ASSESSMENT: Small bowel obstruction secondary to incarcerated small bowel through ventral hernia, POA s/p ex/lap with Partial small bowel resection with anastomosis and repair of iatrogenic gastrotomy performed, drains placed, EGD with therapeutic decompression (09/28/24) Dehydration secondary to recurrent vomiting, improving Post operative anion gap metabolic acidosis with respiratory compensation, resolved 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 Decreased urine output, improving Hypertension 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 Dyslipidemia Normocytic anemia Colon cancer s/p hemicolectomy (09/12/24) PLAN: - Continue full liquid diet - continue to follow surgical input and recommendation - Discontinue bicarb drip per nephrology - Strict I&O - continue to replace electrolytes IV per protocol - continue IV fluids - PRN medication for pain management - Repeat lactic acid at 1300 - Heparin for DVT prophylaxis - Colorectal surgery consulted, appreciate recommendations - Nephrology consulted, appreciate recommendations - PT to evaluate patient - Case management to assist with SNF placement Disposition: Pending post op course, improvement in clinical status, SNF placement DANNY BADILLO MD Oct 02, 2024 15:08
[2024-10-02 15:22] LABS: ALBUMIN 1.1 g/dL (3.5-5.0); CREATININE 3.5 mg/dL (0.5-1.3); POTASSIUM 3.1 mmol/L (3.5-5.1)
[2024-10-02 15:26] LABS: BILIRUBIN,TOTAL 0.4 mg/dL (0.2-1.0); MAGNESIUM 1.4 mg/dL (1.80-2.40)
[2024-10-02] MEDS ORDERED: LOPERAMIDE HCL 2 MG CAP PO ONE (15:30)
--- NOTE | 2024-10-02 16:02 | NUR ---
MARITO DRAIN LEFT MARITO DRAIN DISCONTINUED ORDERED BY KATELYN BANUELOS NP. NO RESISTANCE OR BLEEDING NOTED UPON REMOVAL. PATIENT TOLERATED WELL. WILL CONTINUE TO MONITOR SECOND DRAIN. WOUND CARE PERFORMED INSTRUCTED BY . 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 COVERED WITH 4X4 AND SECURED WITH TAPE. NO S/S OF INFECTION NOTED TO AREA. PATIENT TOLERATED WELL.
[2024-10-02] MEDS: LACTOBACILLUS RHAMNOSUS GG 1 EACH CAP.SPRINK PO SCH (20:23)
[2024-10-03] VITALS (13 sets, daily range): BP systolic 115–148; BP diastolic 56–72; PULSE 68–80; RESP 18–20; TEMP 96.9–98.1; O2SAT 96–100
[2024-10-03 04:04] LABS: BASOPHILS # (AUTO) 0.01 K/uL (0.00-0.20); BASOPHILS % (AUTO) 0.1 % (0.0-5.0); EOSINOPHILS # (AUTO) 0.11 K/uL (0.00-0.70); EOSINOPHILS % (AUTO) 1.2 % (0.0-8.0); HEMATOCRIT 24.7 % (42-54); IMMATURE GRANULOCYTE ABSOLUTE 0.05 K/uL (0-1); LYMPHOCYTES # (AUTO) 0.9 K/uL (1.0-4.8); LYMPHOCYTES % (AUTO) 9.1 % (21.0-51.0); MEAN CORPUSCULAR HEMOGLOBIN 30.8 pg (27.0-33.0); MEAN CORPUSCULAR HGB CONC 33.2 g/dL (32.0-36.0); MEAN CORPUSCULAR VOLUME 92.9 fL (79-99); MONOCYTES # (AUTO) 0.5 K/uL (0.1-1.0); MONOCYTES % (AUTO) 5.1 % (3.0-13.0); NEUTROPHILS # (AUTO) 7.9 K/uL (1.8-7.7); PLATELET COUNT (AUTO) 276 K/uL (130-400); RED BLOOD CELL COUNT(AUTO) 2.66 MIL/uL (4.50-6.20); RED CELL DISTRIBUTION WIDTH 13.8 % (11.0-15.5); WHITE BLOOD COUNT (AUTO) 9.4 K/uL (4.8-10.8)
[2024-10-03 04:29] LABS: ASPARTATE AMINOTRANSFERASE 20 U/L (10-37); BILIRUBIN,TOTAL 0.4 mg/dL (0.2-1.0); CARBON DIOXIDE 29 mmol/L (21-32); CHLORIDE 103 mmol/L (101-111); CREATININE 3.3 mg/dL (0.5-1.3); GLOMERULAR FILTR. RATE CALC 18 mL/min (>90); GLUCOSE,RANDOM 109 mg/dL (70-105); SODIUM SERUM 138 mmol/L (136-145); TOTAL PROTEIN, SERUM 3.9 g/dL (6.0-8.3); UREA NITROGEN, BLOOD 67 mg/dL (7-18)
[2024-10-03 04:45] LABS: ALANINE AMINOTRANSFERASE < 6 U/L (12-78)
[2024-10-03 04:52] LABS: POTASSIUM 2.8 mmol/L (3.5-5.1)
[2024-10-03] MEDS ORDERED: PoTASSium chl 10% ELIXIR 20MEQ 20 MEQ/15 ML UDCUP PO PRN (05:30)
[2024-10-03] MEDS: PoTASSium chloRIDE 20MEQ ER 20 MEQ ERTAB PO PRN (05:43)
[2024-10-03] MEDS: PoTASSium chloRIDE 10MEQ/100ML 100 ML IV PRN (05:44)
--- NOTE | 2024-10-03 08:21 | PN ---
GENERAL SURGERY PROGRESS NOTE Date/Time Patient Seen: [ ] Problem List: Interval History: This is an 83yo male who presented with incarcerated small bowel/incisional hernia, small bowel obstruction. He underwent partial small bowel resection with anastomosis and repair of iatrogenic gastrotomy, drains were placed and EGD performed for decompression. 10/03 No acute events overnight. Patient seen today at bedside in no acute distress. He took the liberty of advancing his own diet today to a solid diet and tolerated well. Abdomen is soft and nontender. No nausea or vomiting. 1 MARIT[address] drain remains in place. He overall feels well. Current Medications Medications (Trade) Dose Ordered Sig/Juanita Route Start Time Stop Time Status Last Admin Dose Admin Albuterol (DUOneb) 1 UDVIAL [id number] IH 10/01/24 12:00 10/31/24 11:59 10/03/24 07:46 1 UDVIAL Aspirin (Aspirin 81mg Chew Tab) 81 mg DAILY PO 09/28/24 09:00 10/28/24 08:59 10/02/24 09:34 81 MG Atorvastatin Calcium (LIPItor 40MG) 40 mg HS PO 09/28/24 21:00 10/28/24 20:59 10/02/24 20:23 40 MG Benzocaine (Hurricaine/ [place] 20% [place]) 50 mcg ONCE TP 09/27/24 16:30 09/28/24 07:12 DC 09/27/24 18:40 1 MCG Budesonide (Pulmicort 0.5 Mg/2ml) 0.5 mg BIDRESP IH 10/01/24 18:00 10/31/24 17:59 10/03/24 07:46 0.5 MG Carvedilol (Coreg 12.5MG) 12.5 mg BID PO 09/28/24 09:00 10/28/24 08:59 10/02/24 20:24 12.5 MG Cefepime HCl (MAXipime 1 GM vial) 1 gm Q24H IVPB 09/29/24 09:30 10/09/24 09:29 10/02/24 08:49 1 GM Cefepime HCl (MAXipime 2 gm vial) 2 gm Q8H IVPB 09/28/24 09:30 09/28/24 09:15 DC EZETIMIBE (Zetia) 10 mg DAILY PO 09/28/24 09:00 10/28/24 08:59 10/02/24 09:34 10 MG Famotidine (Pepcid 20mg Tab) 20 mg Q48H PO 09/28/24 09:00 10/28/24 08:59 10/02/24 09:34 20 MG Heparin Sodium (Porcine) (HEParin 5,000 UNIT VIAL) 5,000 unit TID SQ 09/28/24 09:00 10/28/24 08:59 10/02/24 20:25 5,000 UNIT Lactated Ringer's 1,000 ml @ 125 mls/hr Q8H IV 09/30/24 14:30 10/30/24 14:29 10/02/24 14:08 125 MLS/HR Lactobacillus Rhamnosus ([facility] [employer]) 1 each BID PO 10/02/24 21:00 11/01/24 20:59 10/02/24 20:23 1 EACH Magnesium Sulfate 50 ml @ 0 mls/hr PROTOCOL IV 10/03/24 08:00 11/02/24 07:59 Sodium Bicarbonate 150 meq/Dextrose 1,150 ml @ 150 mls/hr Q7H40M IVP 09/29/24 10:00 09/30/24 14:02 DC 09/30/24 10:17 150 MLS/HR Sodium Chloride 1,000 ml @ 50 mls/hr Q20H IV 09/28/24 07:00 10/28/24 06:59 09/29/24 03:14 100 MLS/HR Sodium Chloride 2,000 ml @ 0 mls/hr Q0M IV 09/28/24 14:30 09/30/24 14:05 DC 09/28/24 17:42 0 MLS/HR Physical Examination: GENERAL: [No acute distress.] HEAD: [Normal with no signs of head trauma.] EYES: [PERRLA, EOMI, conjunctiva and sclera normal.] ENT: [Hearing grossly intact, normal oropharynx.] NECK: [Supple without JVD. There is no tenderness, lymphadenopathy, or masses. No thyromegaly. Normal carotid upstrokes without bruits.] LUNGS: [Clear breath sounds bilaterally. There are right basilar rales one third of the way up the chest. No wheezes, or rhonchi.] HEART: [Normal rate and rhythm. Normal S1 and S2 without mumurs, gallop or rub.] VASC: [Peripheral pulses +2 bilaterally.] ABD: [Bowel sounds normal, soft, nontender, no masses, no organomegaly. No audible bruits.] : [Not examined] LYMPH: [No lymphadenopathy noted.] EXT: [No clubbing, cyanosis or edema.] SKIN: [No rashes or lesions noted.] NEURO: [Awake, alert, and oriented x3. No focal sensory or strength deficits noted.] Vital Signs (last 8hr) Date Time Temp Pulse Resp B/P (MAP) Pulse Ox O2 Delivery O2 Flow Rate FiO2 10/03/24 07:50 97.5 71 19 148/67 98 Nasal Cannula 1.0 10/03/24 07:46 77 18 10/03/24 07:45 77 18 N/Cannula Low lpm 1.0 24 10/03/24 03:36 97.9 80 20 136/72 97 Nasal Cannula 2.0 Laboratory: [ ] Hematology Labs: Test 10/03/24 03:52 Range/Units White Blood Count 9.4 4.8-10.8 K/uL Red Blood Count 2.66 L 4.50-6.20 MIL/uL Hemoglobin 8.2 L 14.0-18.0 g/dL Hematocrit 24.7 L 42-54 % Mean Corpuscular Volume 92.9 79-99 fL Mean Corpuscular Hemoglobin 30.8 27.0-33.0 pg Mean Corpuscular Hemoglobin Concent 33.2 32.0-36.0 g/dL Red Cell Distribution Width 13.8 11.0-15.5 % Platelet Count 276 130-400 K/uL Mean Platelet Volume 9.8 7.5-10.5 fL Immature Granulocyte % (Auto) 0.5 0-1 % Neutrophils (%) (Auto) 84.0 H 40.0-77.0 % Lymphocytes (%) (Auto) 9.1 L 21.0-51.0 % Monocytes (%) (Auto) 5.1 3.0-13.0 % Eosinophils (%) (Auto) 1.2 0.0-8.0 % Basophils (%) (Auto) 0.1 0.0-5.0 % Neutrophils # (Auto) 7.9 H 1.8-7.7 K/uL Lymphocytes # (Auto) 0.9 L 1.0-4.8 K/uL Monocytes # (Auto) 0.5 0.1-1.0 K/uL Eosinophils # (Auto) 0.11 0.00-0.70 K/uL Basophils # (Auto) 0.01 0.00-0.20 K/uL Absolute Immature Granulocyte (auto 0.05 0-1 K/uL Nucleated Red Blood Cells 0.0 0.0-0.19 % Chemistry Labs: Test 10/03/24 03:52 10/02/24 03:30 Range/Units Sodium Level 138 136-145 mmol/L Potassium Level 2.8 *L 3.5-5.1 mmol/L Chloride Level 103 101-111 mmol/L Carbon Dioxide Level 29 21-32 mmol/L Blood Urea Nitrogen 67 H 7-18 mg/dL Creatinine 3.3 H 0.5-1.3 mg/dL Glomerular Filtration Rate Calc 18 >90 mL/min Random Glucose 109 H 70-105 mg/dL Total Calcium 6.3 L 8.5-10.1 mg/dL Magnesium Level 1.30 L 1.80-2.40 mg/dL Total Bilirubin 0.4 0.2-1.0 mg/dL Aspartate Amino Transf (AST/SGOT) 20 10-37 U/L Alanine Aminotransferase (ALT/SGPT) < 6 L 12-78 U/L Alkaline Phosphatase 84 50-136 U/L Total Protein 3.9 L 6.0-8.3 g/dL Albumin 1.0 L 3.5-5.0 g/dL Phosphorus Level 3.3 2.5-4.9 mg/dL Diagnostics / Radiology: [Copy/Paste Echos/Imaging Report here] Impression and Plan: Patient to be discharged with MARITO drain, to be pulled in office Consider starting flomax, he may go home with nielsen if needed Wick dressing can be pulled 1 inch daily starting 2 days post op Appreciate assistance from hospitalist and nephrology KATELYN BANUELOS Oct 03, 2024 08:21
[2024-10-03] MEDS: PoTASSium chloRIDE 20MEQ ER 20 MEQ ERTAB PO ONE (09:21)
[2024-10-03] MEDS: PoTASSium chloRIDE 20MEQ/100ML 100 ML IV ONE (09:22)
[2024-10-03] MEDS: MAGNESIUM 2GM PREMIX 50ML 50 ML IV SCH (09:29)
--- NOTE | 2024-10-03 09:32 | PN ---
[facility] PROGRESS NOTE Date of Service: Oct 03, 2024 Time of Service: 09:29 SUBJECTIVE: 09/29 patient seen at bedside, no acute events overnight. He is status post exploratory laparotomy with repair of a herniated and strangulated bowel my postop day one. There appeared to be a perforation of the stomach during insertion of the 1st trocar due to the obstruction and the patient's still be significantly distended, the defect was identified and, the stomach was decompressed via EGD and then the defect was repaired. The remainder of the procedure was completed without complications. The patient tolerated the procedure well, see the op note for more details. Postoperatively the patient has had decreased urine output, he has had multiple bladder scans that have not shown significant urine within the bladder. He has had a proximally 290 cc output from his MARITO drain. We will increase his IV fluids to 150 cc/hour and recheck at approximately mid day. If he has not had any significant urine output but continues to have appreciable output from his MARITO drains we will consider sending for a body fluid creatinine to assess for a transected ureter. He has been afebrile, hemodynamically stable saturating well on 2 L nasal cannula, hemoglobin decreased from 9.5 down to 9.1, WBC increased from 9.1 up to 13.3, creatinine improved from 6.1 down to 5.1, CO2 decreased from 26 down to 16, an ABG+ was ordered and is consistent with anion gap metabolic acidosis compensated by respiratory alkalosis, lactic acid is barely elevated, these findings may suggest underlying renal tubular acidosis, patient has been initiated on bicarb drip, remainder of his labs are relatively unremarkable. Further care per colorectal surgery 09/30 Pt seen at bedside, no acute events overnight. He is status post exploratory laparotomy with repair of a herniated and strangulated bowel my postop day 2. Catherine catheter placed yesterday, 600 cc/out immediately after. NG tube drained 160 cc, MARITO drain output decreasing. WBC decreased from 13.3 down to 11.6, Hgb decreased from 9.1 down to 8.7, potassium decreased at 3.3, will be repleted according to protocol, creatinine improved from 5.1 down to 4.3. 10/01 patient seen at bedside, no acute events overnight. He is status post exploratory laparotomy with repair of a herniated and strangulated bowel my postop day 3. NG tube has been clamped and patient is started on clear liquid diet. Patient with notable wheeze today at bedside, we will start on DuoNebs and budesonide. He has been afebrile, hemodynamically stable saturating well on 2 L nasal cannula. WBC improved from 11.6 down to 10.9, hemoglobin improved from 8.7 up to 9.5, creatinine improved from 4.3 down to 3.7. Remainder of his labs are relatively unremarkable. 10/02 patient is seen and examined at bedside, case discussed with the RN, patient had three episodes of loose stool yesterday and three today. During my visit he is getting supportive care with IV fluids, awake, following commands, he is on full liquid diet, tolerating well, no nausea, no vomiting, no abdominal pain. He is getting IV antibiotics at the time of my visit. at bedside. We will add lactobacillus one capsule p.o. b.i.d., we will check stool for C difficile. Patient requesting antidiarrheal medication, we will give one time dose of Imodium. 10/03 patient is seen and examined at bedside, case discussed with the RN, no acute events overnight. During my visit yesterday patient stated that he has not had three loose stools, he was started on Culturelle one capsule p.o. b.i.d.. No Imodium was given. Patient admits no more episodes of diarrhea. He is alert oriented. Denies nausea, no vomiting, no abdominal pain. REVIEW OF SYSTEMS 12 point ROS negative unless noted in HPI PHYSICAL EXAM GENERAL APPEARANCE: The patient is awake, alert, and oriented, in no acute cardiopulmonary distress. NEUROLOGICAL: Cranial nerves II-XII grossly intact. Motor is 5/5 in bilateral upper and lower extremities proximal to distal. No sensory deficits. HEENT: Face is symmetric. Pupils are equal and reactive. Extraocular movements are intact. NECK: Supple. No JVD. No thyromegaly. No submental, submandibular, pre- /postauricular, occipital or supraclavicular lymphadenopathy. CHEST: Normal chest expansion. No Telemetry. LUNGS: Absence of any rales, rhonchi or any wheezing. CARDIOVASCULAR: Regular. S1 and S2 normal. No appreciable rubs, murmurs or gallops. ABDOMEN: Soft, nontender, and nondistended. There is no rebound, voluntary guarding, or rigidity. : Deferred. No Catherine. EXTREMITIES: Non-edematous and not cyanotic. No clubbing. Good capillary refill. SKIN: No skin breakdown. Vital Signs (last 8hr) Date Time Temp Pulse Resp B/P (MAP) Pulse Ox O2 Delivery O2 Flow Rate FiO2 10/03/24 09:20 148/67 10/03/24 07:50 97.5 71 19 148/67 98 Nasal Cannula 1.0 10/03/24 07:46 77 18 10/03/24 07:45 77 18 N/Cannula Low lpm 1.0 10/03/24 03:36 97.9 80 20 136/72 97 Nasal Cannula 2.0 LABS: Laboratory: Test 10/03/24 03:52 10/02/24 03:30 Range/Units White Blood Count 9.4 4.8-10.8 K/uL Red Blood Count 2.66 L 4.50-6.20 MIL/uL Hemoglobin 8.2 L 14.0-18.0 g/dL Hematocrit 24.7 L 42-54 % Mean Corpuscular Volume 92.9 79-99 fL Mean Corpuscular Hemoglobin 30.8 27.0-33.0 pg Mean Corpuscular Hemoglobin Concent 33.2 32.0-36.0 g/dL Red Cell Distribution Width 13.8 11.0-15.5 % Platelet Count 276 130-400 K/uL Mean Platelet Volume 9.8 7.5-10.5 fL Immature Granulocyte % (Auto) 0.5 0-1 % Neutrophils (%) (Auto) 84.0 H 40.0-77.0 % Lymphocytes (%) (Auto) 9.1 L 21.0-51.0 % Monocytes (%) (Auto) 5.1 3.0-13.0 % Eosinophils (%) (Auto) 1.2 0.0-8.0 % Basophils (%) (Auto) 0.1 0.0-5.0 % Neutrophils # (Auto) 7.9 H 1.8-7.7 K/uL Lymphocytes # (Auto) 0.9 L 1.0-4.8 K/uL Monocytes # (Auto) 0.5 0.1-1.0 K/uL Eosinophils # (Auto) 0.11 0.00-0.70 K/uL Basophils # (Auto) 0.01 0.00-0.20 K/uL Absolute Immature Granulocyte (auto 0.05 0-1 K/uL Nucleated Red Blood Cells 0.0 0.0-0.19 % Sodium Level 138 136-145 mmol/L Potassium Level 2.8 *L 3.5-5.1 mmol/L Chloride Level 103 101-111 mmol/L Carbon Dioxide Level 29 21-32 mmol/L Blood Urea Nitrogen 67 H 7-18 mg/dL Creatinine 3.3 H 0.5-1.3 mg/dL Glomerular Filtration Rate Calc 18 >90 mL/min Random Glucose 109 H 70-105 mg/dL Total Calcium 6.3 L 8.5-10.1 mg/dL Magnesium Level 1.30 L 1.80-2.40 mg/dL Total Bilirubin 0.4 0.2-1.0 mg/dL Aspartate Amino Transf (AST/SGOT) 20 10-37 U/L Alanine Aminotransferase (ALT/SGPT) < 6 L 12-78 U/L Alkaline Phosphatase 84 50-136 U/L Total Protein 3.9 L 6.0-8.3 g/dL Albumin 1.0 L 3.5-5.0 g/dL Phosphorus Level 3.3 2.5-4.9 mg/dL Current Medications Medications (Trade) Dose Ordered Sig/Juanita Route PRN Reason Start Time Stop Time Status Last Admin Dose Admin Acetaminophen (TYLenol 325MG TAB) 650 mg Q4H PRN PO MILD PAIN (1-3) 09/28/24 07:00 10/28/24 06:59 Acetaminophen (TYLenol 325MG TAB) 650 mg Q6H PRN PO TEMPERATURE GREATER THAN 101.5 09/28/24 07:00 10/28/24 06:59 Acetaminophen/ Hydrocodone Bitart (NORco 5/325MG) 1 tab Q4H PRN PO MODERATE PAIN (4-6) 09/28/24 07:00 10/03/24 06:59 DC 09/30/24 20:33 1 TAB Acetaminophen/ Hydrocodone Bitart (NORco 5/325MG) 2 tab Q4H PRN PO SEVERE PAIN (7-10) 09/28/24 07:00 10/03/24 06:59 DC Al Hydroxide/Mg Hydroxide (MAALox PLUS 30ML) 30 ml Q6H PRN PO INDIGESTION 09/28/24 07:00 10/28/24 06:59 Albuterol (DUOneb) 1 UDVIAL [id number] IH 10/01/24 12:00 10/31/24 11:59 10/03/24 07:46 1 UDVIAL Aspirin (Aspirin 81mg Chew Tab) 81 mg DAILY PO 09/28/24 09:00 10/28/24 08:59 10/03/24 09:18 81 MG Atorvastatin Calcium (LIPItor 40MG) 40 mg HS PO 09/28/24 21:00 10/28/24 20:59 10/02/24 20:23 40 MG Benzocaine (Hurricaine/ [place] 20% [place]) 50 mcg ONCE TP 09/27/24 16:30 09/28/24 07:12 DC 09/27/24 18:40 1 MCG Budesonide (Pulmicort 0.5 Mg/2ml) 0.5 mg BIDRESP IH 10/01/24 18:00 10/31/24 17:59 10/03/24 07:46 0.5 MG Carvedilol (Coreg 12.5MG) 12.5 mg BID PO 09/28/24 09:00 10/28/24 08:59 10/03/24 09:20 12.5 MG Cefepime HCl (MAXipime 1 GM vial) 1 gm Q24H IVPB 09/29/24 09:30 10/09/24 09:29 10/02/24 08:49 1 GM Cefepime HCl (MAXipime 2 gm vial) 2 gm Q8H IVPB 09/28/24 09:30 09/28/24 09:15 DC Diphenhydramine HCl (BENAdryl CAP) 25 mg Q4H PRN PO MILD ITCHING/RASH 09/28/24 07:00 10/28/24 06:59 Diphenhydramine HCl (BENAdryl INJ) 25 mg Q6H PRN IV SEVERE ITCHING/RASH 09/28/24 07:00 10/28/24 06:59 EZETIMIBE (Zetia) 10 mg DAILY PO 09/28/24 09:00 10/28/24 08:59 10/03/24 09:21 10 MG Famotidine (Pepcid 20mg Vial) 20 mg BID PRN IV NAUSEA/VOMITING 09/28/24 07:00 09/28/24 07:17 DC Famotidine (Pepcid 20mg Tab) 20 mg Q48H PO 09/28/24 09:00 10/28/24 08:59 10/02/24 09:34 20 MG Guaifenesin/ Dextromethorphan (RobiTUSSin DM 200/20MG 10ML) 10 ml Q4H PRN PO COUGH 09/28/24 07:00 10/28/24 06:59 Heparin Sodium (Porcine) (HEParin 5,000 UNIT VIAL) 5,000 unit TID SQ 09/28/24 09:00 10/28/24 08:59 10/02/24 20:25 5,000 UNIT Hydromorphone HCl (DiLAUDid 0.5MG INJ) 0.5 mg Q4H PRN IV SEVERE PAIN (7-10) IF NPO 09/28/24 07:00 10/03/24 06:59 DC Lactated Ringer's 1,000 ml @ 125 mls/hr Q8H IV 09/30/24 14:30 10/30/24 14:29 10/03/24 09:23 125 MLS/HR Lactobacillus Rhamnosus ([facility] [employer]) 1 each BID PO 10/02/24 21:00 11/01/24 20:59 10/03/24 09:20 1 EACH Lactulose (Constulose 20gm/ 30ml Udcup) 20 gm BID PRN PO CONSTIPATION 09/28/24 07:00 10/28/24 06:59 Magnesium Sulfate 50 ml @ 0 mls/hr PROTOCOL IV 10/03/24 08:00 11/02/24 07:59 10/03/24 09:29 20 MLS/HR Nitroglycerin (Nitrostat) 0.4 mg PROTOCOL PRN SL CHEST PAIN 09/28/24 07:00 10/28/24 06:59 Ondansetron HCl (zoFRAN 4MG INJ) 4 mg Q6H PRN IV NAUSEA/VOMITING 09/28/24 07:00 10/28/24 06:59 Potassium Chloride 100 ml @ 100 mls/hr AD PRN IV POTASSIUM PROTOCOL 10/03/24 05:30 11/02/24 05:29 10/03/24 05:44 100 MLS/HR Potassium Chloride (K-Dur/Klor-Con 20meq) 10 meq AD PRN PO POTASSIUM PROTOCOL 10/03/24 05:30 11/02/24 05:29 10/03/24 05:43 10 MEQ Potassium Chloride (KCl 10% Elixir 20meq/15ml) 10 meq AD PRN PO POTASSIUM PROTOCOL 10/03/24 05:30 11/02/24 05:29 Sodium Bicarbonate 150 meq/Dextrose 1,150 ml @ 150 mls/hr Q7H40M IVP 09/29/24 10:00 09/30/24 14:02 DC 09/30/24 10:17 150 MLS/HR Sodium Chloride 1,000 ml @ 50 mls/hr Q20H IV 09/28/24 07:00 10/28/24 06:59 09/29/24 03:14 100 MLS/HR Sodium Chloride 2,000 ml @ 0 mls/hr Q0M IV 09/28/24 14:30 09/30/24 14:05 DC 09/28/24 17:42 0 MLS/HR DIAGNOSTICS / RADIOLOGY: [ ] ASSESSMENT: Small bowel obstruction secondary to incarcerated small bowel through ventral hernia, POA s/p ex/lap with Partial small bowel resection with anastomosis and repair of iatrogenic gastrotomy performed, drains placed, EGD with therapeutic decompression (09/28/24) Dehydration secondary to recurrent vomiting, improving Post operative anion gap metabolic acidosis with respiratory compensation, resolved 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 Decreased urine output, improving Hypertension 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 Fall Precautions. Well lighted room through the day and minimize interruptions through the night to prevent acute delirium. PULMONARY: Supplemental 02 as needed BiPAP as necessary, for respiratory distress Titrate Fio2 to keep Spo2 > or = 90% DuoNebs and CPT as needed IS hourly while awake for pulmonary hygiene prn Out of bed to chair as tolerated Maintain aspiration precautions at all times CARDIOVASCULAR: Follow hemodynamics. Vital signs per facility protocol GI & NUTRITION: Continue nutritional support Aspirations precautions Prokinetic agents and laxatives as needed KIDNEYS & ELECTROLYTES: Strict monitoring of intake and output Daily weights Avoid nephrotoxic agents Monitor electrolytes and replace as needed Goal urine output of 30mL/hr or 0.5mL/kg/hr Medications to be dosed according to renal function. Avoid contrast if possible ENDOCRINE: Maintain blood glucose between 100-180 at all times. Insulin sliding scale for blood glucose management Hypoglycemia and hyperglycemia protocol in place INFECTIOUS DISEASE: Trend temperature, WBC and procalcitonin level Follow cultures, deescalate antibiotics as soon as possible. Panculture if new onset fever HEMATOLOGY & COAGULATION: Monitor H&H. Keep Hgb > 7 Transfuse 1 unit of PRBC for Hgb < 7 Transfuse 1 pack of platelets of platelets < 20, 000 Watch for any signs and symptoms of bleeding SKIN: Pressure ulcer prevention per facility protocol Specialty mattress as needed ORTHO/REHAB Continue PT/OT PRN: MEDICATIONS Tylenol 650 mg po every 4 hrs for fever zofran 4 mg IV every 6 hrs for n/v Hydralazine 5 mg IV every 4 hrs systolic pressure > 160 bowel regiment: lactulose 20 gm PO BID PRN constipation Supportive measures: Continue GI and DVT prophylaxis Disposition: Pending improvement in clinical condition. We will get PT to evaluate the patient and discuss discharge plan with case management. All questions answered time spent: > 35 min DANNY BADILLO MD Oct 03, 2024 09:31
[2024-10-03] MEDS ORDERED: PoTASSium chloRIDE 10MEQ SR 10 MEQ/TAB TAB.SR.24H PO PRN (12:00)
[2024-10-03] MEDS: MAGNESIUM OXIDE 400 MG TABLET ONE (15:46)
[2024-10-03] MEDS: MAGNESIUM OXIDE 400 MG TABLET PO ONE (15:47)
[2024-10-03 20:56] LABS: CREATININE 3.2 mg/dL (0.5-1.3); MAGNESIUM 1.4 mg/dL (1.80-2.40); POTASSIUM 3.5 mmol/L (3.5-5.1)
--- NOTE | 2024-10-03 22:01 | PN ---
SUBJECTIVE: An 83-year-old male who has had a prolonged hospital course. The patient initially admitted and found to have bowel obstruction. The patient is status post surgery. He has had acute on chronic renal failure in the hospital. Creatinine continues to slowly improve. The patient remains on a diet and the patient is being seen as a followup visit for all of the above. REVIEW OF SYSTEMS: GENERAL: He is feeling improved since admission. HEENT: No change in vision. No change in hearing, no nasal discharge, no sore throat. CARDIOVASCULAR: There is no current chest pain or palpitations. PULMONARY: No shortness of breath. GASTROINTESTINAL: He is tolerating some amount of diet. MUSCULOSKELETAL: Complains of weakness. PHYSICAL EXAMINATION: VITAL SIGNS: Blood pressure 148/67, pulse 70s. He is afebrile. GENERAL: He is a chronically ill male, elderly, lying in bed on the medical floor. HEENT: Head is atraumatic. Pupils equal, roving to light. Oropharynx is without exudate. Nares clear. NECK: There is no JVP. There is no thyromegaly, no mass. CARDIOVASCULAR: Regular. There is no S3, S4 gallop. LUNGS: Coarse with equal thoracic movement. ABDOMEN: Soft, nondistended, nontender. EXTREMITIES: Reveal no clubbing, no cyanosis. NEUROLOGIC: He is awake. He is alert. LABORATORY DATA: Sodium 138, potassium 2.8, BUN 67, creatinine is 3.3. Mag is 1.3. IMPRESSION: * Acute on chronic renal dysfunction. * Bowel obstruction, status post surgery. * Electrolyte abnormalities. * Debilitation. PLAN: The patient's renal function continues to slowly improve. The patient's electrolytes continued to be aggressively repleted. The patient has a history of known chronic renal insufficiency. There is no need for any form of renal replacement therapy at this time. We will continue to follow closely. The patient is encouraged with his therapy. He is being seen by case management for final disposition. TID: [id number] RECEIPT: [id number]
[2024-10-04] VITALS (13 sets, daily range): BP systolic 118–138; BP diastolic 61–94; PULSE 67–81; RESP 17–20; TEMP 97.3–97.9; O2SAT 96–100
[2024-10-04 04:09] LABS: BASOPHILS # (AUTO) 0.01 K/uL (0.00-0.20); BASOPHILS % (AUTO) 0.1 % (0.0-5.0); EOSINOPHILS # (AUTO) 0.11 K/uL (0.00-0.70); EOSINOPHILS % (AUTO) 1.5 % (0.0-8.0); HEMATOCRIT 26.1 % (42-54); IMMATURE GRANULOCYTE ABSOLUTE 0.03 K/uL (0-1); LYMPHOCYTES % (AUTO) 13.5 % (21.0-51.0); MEAN CORPUSCULAR HEMOGLOBIN 30.7 pg (27.0-33.0); MEAN CORPUSCULAR VOLUME 93.2 fL (79-99); MONOCYTES # (AUTO) 0.5 K/uL (0.1-1.0); MONOCYTES % (AUTO) 6.8 % (3.0-13.0); NEUTROPHILS # (AUTO) 5.6 K/uL (1.8-7.7); NEUTROPHILS % (AUTO) 77.7 % (40.0-77.0); PLATELET COUNT (AUTO) 257 K/uL (130-400); RED CELL DISTRIBUTION WIDTH 13.7 % (11.0-15.5); WHITE BLOOD COUNT (AUTO) 7.2 K/uL (4.8-10.8)
[2024-10-04 04:27] LABS: BILIRUBIN,TOTAL 0.4 mg/dL (0.2-1.0); MAGNESIUM 1.3 mg/dL (1.80-2.40); POTASSIUM 3.5 mmol/L (3.5-5.1)
[2024-10-04 05:21] LABS: LYMPHOCYTES % (MANUAL) 14 % (22-44); MONOCYTES % (MANUAL) 6 % (2-9); SEGMENTED NEUTROPHILS % 80 % (40-70); TOTAL CELLS COUNTED 100
[2024-10-04 05:22] LABS: MAN.DIFF COMMENT-IMPRESSION MANUAL DIFFERENTIAL
--- NOTE | 2024-10-04 08:48 | PN ---
COLORECTAL PROGRESS NOTE Date of Visit: Oct 04, 2024 Time of Visit: 08:48 Review of Systems: CONSTITUTIONAL: No malaise or change in sensation of wellbeing. ENMT: No rhinorrhea, otorrhea, sinus pain, ear ache. CARDIOVASCULAR: No angina, palpitations, orthopnea or paroxysmal dyspnea. RESPIRATORY: No SOB. GASTROINTESTINAL: No abdominal pain, nausea, vomiting, diarrhea, hematemesis, melena or change in the patient's habitual bowel movements consistency/number. GENITOURINARY: No dysuria, hematuria or change in bladder continence. MUSCULOSKELETAL: No new muscle pain or decrease in muscular strength. No new joint swelling, redness or tenderness. SKIN: No new rash. Physical Exam: GEN: Awake, alert, oriented in person, time and place, and in no acute distress. HEENT: No rhinorrhea. Oral pharyngeal mucosa is pink, moist and within normal limits. Neck is supple CHEST: Inspection, palpation of the chest were unremarkable. Lung auscultation revealed normal breath sounds bilaterally. CARDIAC: PMI is within normal limits. Heart sounds are regular.. ABD: Soft, non-tender and not distended. No peritoneal signs on palpation. No organomegaly. Active bs throughout. MARITO drain to mid abdomen and Marito drain to left side of abdomen with serous output. Catherine cath draining cyu via gravity. EXT: No cyanosis or clubbing. No edema. Scds in place. SKIN: Intact. No rashes. JOINTS: No evidence of synovitis or acute arthritis. NEURO: Alert and oriented to name, place and person. No focal motor deficits. Normal speech. Gait not assessed. Strength is normal. Vital Signs (last 8hr) Date Time Temp Pulse Resp B/P (MAP) Pulse Ox O2 Delivery O2 Flow Rate FiO2 10/04/24 06:27 77 18 10/04/24 06:26 18 N/A Room Air 0.0 21 10/04/24 04:00 97.9 81 20 132/94 94 Room Air Laboratory: [ ] Laboratory: Test 10/04/24 03:48 Range/Units White Blood Count 7.2 4.8-10.8 K/uL Red Blood Count 2.80 L 4.50-6.20 MIL/uL Hemoglobin 8.6 L 14.0-18.0 g/dL Hematocrit 26.1 L 42-54 % Mean Corpuscular Volume 93.2 79-99 fL Mean Corpuscular Hemoglobin 30.7 27.0-33.0 pg Mean Corpuscular Hemoglobin Concent 33.0 32.0-36.0 g/dL Red Cell Distribution Width 13.7 11.0-15.5 % Platelet Count 257 130-400 K/uL Mean Platelet Volume 9.7 7.5-10.5 fL Immature Granulocyte % (Auto) 0.4 0-1 % Neutrophils (%) (Auto) 77.7 H 40.0-77.0 % Lymphocytes (%) (Auto) 13.5 L 21.0-51.0 % Monocytes (%) (Auto) 6.8 3.0-13.0 % Eosinophils (%) (Auto) 1.5 0.0-8.0 % Basophils (%) (Auto) 0.1 0.0-5.0 % Neutrophils # (Auto) 5.6 1.8-7.7 K/uL Lymphocytes # (Auto) 1.0 1.0-4.8 K/uL Monocytes # (Auto) 0.5 0.1-1.0 K/uL Eosinophils # (Auto) 0.11 0.00-0.70 K/uL Basophils # (Auto) 0.01 0.00-0.20 K/uL Absolute Immature Granulocyte (auto 0.03 0-1 K/uL Segmented Neutrophils % 80 H 40-70 % Lymphocytes % (Manual) 14 L 22-44 % Monocytes % (Manual) 6 2-9 % Nucleated Red Blood Cells 0.0 0.0-0.19 % Differential Comment MANUAL DIFFERENTIAL White Cell Morphology Comment Platelet Morphology Comment See comments Red Blood Cell Morphology ANISO 1+ Sodium Level 138 136-145 mmol/L Potassium Level 3.5 3.5-5.1 mmol/L Chloride Level 103 101-111 mmol/L Carbon Dioxide Level 31 21-32 mmol/L Blood Urea Nitrogen 64 H 7-18 mg/dL Creatinine 3.0 H 0.5-1.3 mg/dL Glomerular Filtration Rate Calc 20 >90 mL/min Random Glucose 135 H 70-105 mg/dL Total Calcium 6.5 L 8.5-10.1 mg/dL Magnesium Level 1.30 L 1.80-2.40 mg/dL Total Bilirubin 0.4 0.2-1.0 mg/dL Aspartate Amino Transf (AST/SGOT) 20 10-37 U/L Alanine Aminotransferase (ALT/SGPT) 2 L 12-78 U/L Alkaline Phosphatase 82 50-136 U/L Total Protein 4.0 L 6.0-8.3 g/dL Albumin 1.0 L 3.5-5.0 g/dL Current Medications Medications (Trade) Dose Ordered Sig/Juanita Route PRN Reason Start Time Stop Time Status Last Admin Dose Admin Acetaminophen (TYLenol 325MG TAB) 650 mg Q4H PRN PO MILD PAIN (1-3) 09/28/24 07:00 10/28/24 06:59 Acetaminophen (TYLenol 325MG TAB) 650 mg Q6H PRN PO TEMPERATURE GREATER THAN 101.5 09/28/24 07:00 10/28/24 06:59 Acetaminophen/ Hydrocodone Bitart (NORco 5/325MG) 1 tab Q4H PRN PO MODERATE PAIN (4-6) 09/28/24 07:00 10/03/24 06:59 DC 09/30/24 20:33 1 TAB Acetaminophen/ Hydrocodone Bitart (NORco 5/325MG) 2 tab Q4H PRN PO SEVERE PAIN (7-10) 09/28/24 07:00 10/03/24 06:59 DC Al Hydroxide/Mg Hydroxide (MAALox PLUS 30ML) 30 ml Q6H PRN PO INDIGESTION 09/28/24 07:00 10/28/24 06:59 Albuterol (DUOneb) 1 UDVIAL G7CLREQ IH 10/01/24 12:00 10/31/24 11:59 10/04/24 06:25 1 UDVIAL Aspirin (Aspirin 81mg Chew Tab) 81 mg DAILY PO 09/28/24 09:00 10/28/24 08:59 10/03/24 09:18 81 MG Atorvastatin Calcium (LIPItor 40MG) 40 mg HS PO 09/28/24 21:00 10/28/24 20:59 10/03/24 20:06 40 MG Benzocaine (Hurricaine/ [place] 20% [place]) 50 mcg ONCE TP 09/27/24 16:30 09/28/24 07:12 DC 09/27/24 18:40 1 MCG Budesonide (Pulmicort 0.5 Mg/2ml) 0.5 mg BIDRESP IH 10/01/24 18:00 10/31/24 17:59 10/04/24 06:25 0.5 MG Carvedilol (Coreg 12.5MG) 12.5 mg BID PO 09/28/24 09:00 10/28/24 08:59 10/03/24 20:06 12.5 MG Cefepime HCl (MAXipime 1 GM vial) 1 gm Q24H IVPB 09/29/24 09:30 10/09/24 09:29 10/03/24 09:31 1 GM Cefepime HCl (MAXipime 2 gm vial) 2 gm Q8H IVPB 09/28/24 09:30 09/28/24 09:15 DC Diphenhydramine HCl (BENAdryl CAP) 25 mg Q4H PRN PO MILD ITCHING/RASH 09/28/24 07:00 10/28/24 06:59 Diphenhydramine HCl (BENAdryl INJ) 25 mg Q6H PRN IV SEVERE ITCHING/RASH 09/28/24 07:00 10/28/24 06:59 EZETIMIBE (Zetia) 10 mg DAILY PO 09/28/24 09:00 10/28/24 08:59 10/03/24 09:21 10 MG Famotidine (Pepcid 20mg Vial) 20 mg BID PRN IV NAUSEA/VOMITING 09/28/24 07:00 09/28/24 07:17 DC Famotidine (Pepcid 20mg Tab) 20 mg Q48H PO 09/28/24 09:00 10/28/24 08:59 10/02/24 09:34 20 MG Guaifenesin/ Dextromethorphan (RobiTUSSin DM 200/20MG 10ML) 10 ml Q4H PRN PO COUGH 09/28/24 07:00 10/28/24 06:59 Heparin Sodium (Porcine) (HEParin 5,000 UNIT VIAL) 5,000 unit TID SQ 09/28/24 09:00 10/28/24 08:59 10/03/24 20:08 5,000 UNIT Hydromorphone HCl (DiLAUDid 0.5MG INJ) 0.5 mg Q4H PRN IV SEVERE PAIN (7-10) IF NPO 09/28/24 07:00 10/03/24 06:59 DC Lactated Ringer's 1,000 ml @ 125 mls/hr Q8H IV 09/30/24 14:30 10/30/24 14:29 10/04/24 05:36 125 MLS/HR Lactobacillus Rhamnosus ([facility]) 1 each BID PO 10/02/24 21:00 11/01/24 20:59 10/03/24 20:06 1 EACH Lactulose (Constulose 20gm/ 30ml Udcup) 20 gm BID PRN PO CONSTIPATION 09/28/24 07:00 10/28/24 06:59 Magnesium Sulfate 50 ml @ 0 mls/hr PROTOCOL IV 10/03/24 08:00 11/02/24 07:59 10/04/24 05:36 25 MLS/HR Nitroglycerin (Nitrostat) 0.4 mg PROTOCOL PRN SL CHEST PAIN 09/28/24 07:00 10/28/24 06:59 Ondansetron HCl (zoFRAN 4MG INJ) 4 mg Q6H PRN IV NAUSEA/VOMITING 09/28/24 07:00 10/28/24 06:59 Potassium Chloride 100 ml @ 100 mls/hr AD PRN IV POTASSIUM PROTOCOL 10/03/24 05:30 11/02/24 05:29 10/03/24 05:44 100 MLS/HR Potassium Chloride (K-Dur 10meq Sr Tab) 10 meq AD PRN PO POTASSIUM PROTOCOL 10/03/24 12:00 11/02/24 05:29 Potassium Chloride (K-Dur/Klor-Con 20meq) 10 meq AD PRN PO POTASSIUM PROTOCOL 10/03/24 05:30 10/03/24 11:38 DC 10/03/24 05:43 10 MEQ Potassium Chloride (KCl 10% [place] 20meq/15ml) 10 meq AD PRN PO POTASSIUM PROTOCOL 10/03/24 05:30 11/02/24 05:29 Sodium Bicarbonate 150 meq/Dextrose 1,150 ml @ 150 mls/hr Q7H40M IVP 09/29/24 10:00 09/30/24 14:02 DC 09/30/24 10:17 150 MLS/HR Sodium Chloride 1,000 ml @ 50 mls/hr Q20H IV 09/28/24 07:00 10/28/24 06:59 09/29/24 03:14 100 MLS/HR Sodium Chloride 2,000 ml @ 0 mls/hr Q0M IV 09/28/24 14:30 09/30/24 14:05 DC 09/28/24 17:42 0 MLS/HR KATELYN BANUELOS [facility] Oct 04, 2024 08:48
--- NOTE | 2024-10-04 08:49 | PN ---
GENERAL SURGERY PROGRESS NOTE Date/Time Patient Seen: [ ] Problem List: Interval History: This is an 83yo male who presented with incarcerated small bowel/incisional hernia, small bowel obstruction. He underwent partial small bowel resection with anastomosis and repair of iatrogenic gastrotomy, drains were placed and EGD performed for decompression. 10/03 No acute events overnight. Patient seen today at bedside in no acute distress. He took the liberty of advancing his own diet today to a solid diet and tolerated well. Abdomen is soft and nontender. No nausea or vomiting. 1 [address] drain remains in place. He overall feels well. Current Medications Medications (Trade) Dose Ordered Sig/Juanita Route Start Time Stop Time Status Last Admin Dose Admin Albuterol (DUOneb) 1 UDVIAL [id number] IH 10/01/24 12:00 10/31/24 11:59 10/04/24 06:25 1 UDVIAL Aspirin (Aspirin 81mg Chew Tab) 81 mg DAILY PO 09/28/24 09:00 10/28/24 08:59 10/03/24 09:18 81 MG Atorvastatin Calcium (LIPItor 40MG) 40 mg HS PO 09/28/24 21:00 10/28/24 20:59 10/03/24 20:06 40 MG Benzocaine (Hurricaine/ [place] 20% [place]) 50 mcg ONCE TP 09/27/24 16:30 09/28/24 07:12 DC 09/27/24 18:40 1 MCG Budesonide (Pulmicort 0.5 Mg/2ml) 0.5 mg BIDRESP IH 10/01/24 18:00 10/31/24 17:59 10/04/24 06:25 0.5 MG Carvedilol (Coreg 12.5MG) 12.5 mg BID PO 09/28/24 09:00 10/28/24 08:59 10/03/24 20:06 12.5 MG Cefepime HCl (MAXipime 1 GM vial) 1 gm Q24H IVPB 09/29/24 09:30 10/09/24 09:29 10/03/24 09:31 1 GM Cefepime HCl (MAXipime 2 gm vial) 2 gm Q8H IVPB 09/28/24 09:30 09/28/24 09:15 DC EZETIMIBE (Zetia) 10 mg DAILY PO 09/28/24 09:00 10/28/24 08:59 10/03/24 09:21 10 MG Famotidine (Pepcid 20mg Tab) 20 mg Q48H PO 09/28/24 09:00 10/28/24 08:59 10/02/24 09:34 20 MG Heparin Sodium (Porcine) (HEParin 5,000 UNIT VIAL) 5,000 unit TID SQ 09/28/24 09:00 10/28/24 08:59 10/03/24 20:08 5,000 UNIT Lactated Ringer's 1,000 ml @ 125 mls/hr Q8H IV 09/30/24 14:30 10/30/24 14:29 10/04/24 05:36 125 MLS/HR Lactobacillus Rhamnosus ([facility]) 1 each BID PO 10/02/24 21:00 11/01/24 20:59 10/03/24 20:06 1 EACH Magnesium Sulfate 50 ml @ 0 mls/hr PROTOCOL IV 10/03/24 08:00 11/02/24 07:59 10/04/24 05:36 25 MLS/HR Sodium Bicarbonate 150 meq/Dextrose 1,150 ml @ 150 mls/hr Q7H40M IVP 09/29/24 10:00 09/30/24 14:02 DC 09/30/24 10:17 150 MLS/HR Sodium Chloride 1,000 ml @ 50 mls/hr Q20H IV 09/28/24 07:00 10/28/24 06:59 09/29/24 03:14 100 MLS/HR Sodium Chloride 2,000 ml @ 0 mls/hr Q0M IV 09/28/24 14:30 09/30/24 14:05 DC 09/28/24 17:42 0 MLS/HR Physical Examination: GENERAL: [No acute distress.] HEAD: [Normal with no signs of head trauma.] EYES: [PERRLA, EOMI, conjunctiva and sclera normal.] ENT: [Hearing grossly intact, normal oropharynx.] NECK: [Supple without JVD. There is no tenderness, lymphadenopathy, or masses. No thyromegaly. Normal carotid upstrokes without bruits.] LUNGS: [Clear breath sounds bilaterally. There are right basilar rales one third of the way up the chest. No wheezes, or rhonchi.] HEART: [Normal rate and rhythm. Normal S1 and S2 without mumurs, gallop or rub.] VASC: [Peripheral pulses +2 bilaterally.] ABD: [Bowel sounds normal, soft, nontender, no masses, no organomegaly. No audible bruits.] : [Not examined] LYMPH: [No lymphadenopathy noted.] EXT: [No clubbing, cyanosis or edema.] SKIN: [No rashes or lesions noted.] NEURO: [Awake, alert, and oriented x3. No focal sensory or strength deficits noted.] Vital Signs (last 8hr) Date Time Temp Pulse Resp B/P (MAP) Pulse Ox O2 Delivery O2 Flow Rate FiO2 10/04/24 06:27 77 18 10/04/24 06:26 18 N/A Room Air 0.0 21 10/04/24 04:00 97.9 81 20 132/94 94 Room Air Laboratory: [ ] Hematology Labs: Test 10/04/24 03:48 Range/Units White Blood Count 7.2 4.8-10.8 K/uL Red Blood Count 2.80 L 4.50-6.20 MIL/uL Hemoglobin 8.6 L 14.0-18.0 g/dL Hematocrit 26.1 L 42-54 % Mean Corpuscular Volume 93.2 79-99 fL Mean Corpuscular Hemoglobin 30.7 27.0-33.0 pg Mean Corpuscular Hemoglobin Concent 33.0 32.0-36.0 g/dL Red Cell Distribution Width 13.7 11.0-15.5 % Platelet Count 257 130-400 K/uL Mean Platelet Volume 9.7 7.5-10.5 fL Immature Granulocyte % (Auto) 0.4 0-1 % Neutrophils (%) (Auto) 77.7 H 40.0-77.0 % Lymphocytes (%) (Auto) 13.5 L 21.0-51.0 % Monocytes (%) (Auto) 6.8 3.0-13.0 % Eosinophils (%) (Auto) 1.5 0.0-8.0 % Basophils (%) (Auto) 0.1 0.0-5.0 % Neutrophils # (Auto) 5.6 1.8-7.7 K/uL Lymphocytes # (Auto) 1.0 1.0-4.8 K/uL Monocytes # (Auto) 0.5 0.1-1.0 K/uL Eosinophils # (Auto) 0.11 0.00-0.70 K/uL Basophils # (Auto) 0.01 0.00-0.20 K/uL Absolute Immature Granulocyte (auto 0.03 0-1 K/uL Segmented Neutrophils % 80 H 40-70 % Lymphocytes % (Manual) 14 L 22-44 % Monocytes % (Manual) 6 2-9 % Nucleated Red Blood Cells 0.0 0.0-0.19 % Differential Comment MANUAL DIFFERENTIAL White Cell Morphology Comment Platelet Morphology Comment See comments Red Blood Cell Morphology ANISO 1+ Chemistry Labs: Test 10/04/24 03:48 Range/Units Sodium Level 138 136-145 mmol/L Potassium Level 3.5 3.5-5.1 mmol/L Chloride Level 103 101-111 mmol/L Carbon Dioxide Level 31 21-32 mmol/L Blood Urea Nitrogen 64 H 7-18 mg/dL Creatinine 3.0 H 0.5-1.3 mg/dL Glomerular Filtration Rate Calc 20 >90 mL/min Random Glucose 135 H 70-105 mg/dL Total Calcium 6.5 L 8.5-10.1 mg/dL Magnesium Level 1.30 L 1.80-2.40 mg/dL Total Bilirubin 0.4 0.2-1.0 mg/dL Aspartate Amino Transf (AST/SGOT) 20 10-37 U/L Alanine Aminotransferase (ALT/SGPT) 2 L 12-78 U/L Alkaline Phosphatase 82 50-136 U/L Total Protein 4.0 L 6.0-8.3 g/dL Albumin 1.0 L 3.5-5.0 g/dL Diagnostics / Radiology: [Copy/Paste Echos/Imaging Report here] Impression and Plan: Patient to be discharged with MARITO drain, to be pulled in office Consider starting flomax, he may go home with nielsen if needed Wick dressing can be pulled 1 inch daily starting 2 days post op Appreciate assistance from hospitalist and nephrology KATELYN BANUELOS Oct 04, 2024 08:49
[2024-10-04] MEDS ORDERED: MAGNESIUM 2GM PREMIX 50ML 50 ML IV SCH (09:00)
[2024-10-04] MEDS: PoTASSium chloRIDE 20MEQ ER 20 MEQ ERTAB PO ONE (09:18)
--- NOTE | 2024-10-04 09:41 | PN ---
FOLLOWUP PROGRESS NOTE SUBJECTIVE: An 83-year-old male who has had a prolonged hospital course. The patient with previous history of hemicolectomy. The patient admitted with a bowel obstruction, status post surgery. The patient's creatinine continues to slowly improve. The patient now is tolerating a diet without difficulty. He is pending transfer to the SNF and he is being seen as a followup visit for all the above. REVIEW OF SYSTEMS: GENERAL: He is feeling improved. HEENT: No change in vision. No change in hearing. CARDIOVASCULAR: There is no current chest pain or palpitations. PULMONARY: No shortness of breath. GASTROINTESTINAL: He is now tolerating a regular diet. MUSCULOSKELETAL: Complains of weakness. PHYSICAL EXAMINATION: VITAL SIGNS: Blood pressure is 132/94, pulse 80s and afebrile. GENERAL: He is a chronically ill male, elderly, lying in bed on the medical floor. HEENT: Head is atraumatic. Pupils equal, roving to light. Oropharynx is without exudate. Nares clear. NECK: There is no JVP. There is no thyromegaly, no mass. CARDIOVASCULAR: Regular. There is no S3, S4 gallop. LUNGS: Coarse with equal thoracic movement. ABDOMEN: Soft, nondistended, nontender. EXTREMITIES: Revealed no clubbing, no cyanosis. NEUROLOGIC: He is awake. He is alert. He is oriented. LABORATORY DATA: Sodium 138, potassium 3.5, BUN 64, creatinine is 3. Hemoglobin 8.6, hematocrit 26. IMPRESSION: * [id number] renal failure. * Small bowel obstruction, status post surgery. * Hypertension. * Anemia. PLAN: The patient now is tolerating a diet without difficulty. IV fluids can safely be discontinued. We will discontinue the Catherine catheter in anticipation for transfer to the SNF. The patient's electrolytes have all been aggressively repleted. We will continue to follow closely and make further recommendations accordingly. TID: [id number] RECEIPT: [id number]
--- NOTE | 2024-10-04 11:21 | PN ---
[facility] PROGRESS NOTE Date of Service: Oct 04, 2024 Time of Service: 11:19 SUBJECTIVE: 09/29 patient seen at bedside, no acute events overnight. He is status post exploratory laparotomy with repair of a herniated and strangulated bowel my postop day one. There appeared to be a perforation of the stomach during insertion of the 1st trocar due to the obstruction and the patient's still be significantly distended, the defect was identified and, the stomach was decompressed via EGD and then the defect was repaired. The remainder of the procedure was completed without complications. The patient tolerated the procedure well, see the op note for more details. Postoperatively the patient has had decreased urine output, he has had multiple bladder scans that have not shown significant urine within the bladder. He has had a proximally 290 cc output from his MARITO drain. We will increase his IV fluids to 150 cc/hour and recheck at approximately mid day. If he has not had any significant urine output but continues to have appreciable output from his MARITO drains we will consider sending for a body fluid creatinine to assess for a transected ureter. He has been afebrile, hemodynamically stable saturating well on 2 L nasal cannula, hemoglobin decreased from 9.5 down to 9.1, WBC increased from 9.1 up to 13.3, creatinine improved from 6.1 down to 5.1, CO2 decreased from 26 down to 16, an ABG+ was ordered and is consistent with anion gap metabolic acidosis compensated by respiratory alkalosis, lactic acid is barely elevated, these findings may suggest underlying renal tubular acidosis, patient has been initiated on bicarb drip, remainder of his labs are relatively unremarkable. Further care per colorectal surgery 09/30 Pt seen at bedside, no acute events overnight. He is status post exploratory laparotomy with repair of a herniated and strangulated bowel my postop day 2. Catherine catheter placed yesterday, 600 cc/out immediately after. NG tube drained 160 cc, MARITO drain output decreasing. WBC decreased from 13.3 down to 11.6, Hgb decreased from 9.1 down to 8.7, potassium decreased at 3.3, will be repleted according to protocol, creatinine improved from 5.1 down to 4.3. 10/01 patient seen at bedside, no acute events overnight. He is status post exploratory laparotomy with repair of a herniated and strangulated bowel my postop day 3. NG tube has been clamped and patient is started on clear liquid diet. Patient with notable wheeze today at bedside, we will start on DuoNebs and budesonide. He has been afebrile, hemodynamically stable saturating well on 2 L nasal cannula. WBC improved from 11.6 down to 10.9, hemoglobin improved from 8.7 up to 9.5, creatinine improved from 4.3 down to 3.7. Remainder of his labs are relatively unremarkable. 10/02 patient is seen and examined at bedside, case discussed with the RN, patient had three episodes of loose stool yesterday and three today. During my visit he is getting supportive care with IV fluids, awake, following commands, he is on full liquid diet, tolerating well, no nausea, no vomiting, no abdominal pain. He is getting IV antibiotics at the time of my visit. at bedside. We will add lactobacillus one capsule p.o. b.i.d., we will check stool for C difficile. Patient requesting antidiarrheal medication, we will give one time dose of Imodium. 10/03 patient is seen and examined at bedside, case discussed with the RN, no acute events overnight. During my visit yesterday patient stated that he has not had three loose stools, he was started on Culturelle one capsule p.o. b.i.d.. No Imodium was given. Patient admits no more episodes of diarrhea. He is alert oriented. Denies nausea, no vomiting, no abdominal pain. 10/04 patient is seen and examined at bedside, case discussed with the RN, no acute events overnight, output from MARITO drain 620 mL. The patient on soft diet, tolerating well, no diarrhea. He is alert oriented x3, no chest pain, shortness shortness for breath, no nausea, no vomiting. He is hemodynamically stable, afebrile. at bedside during my visit. REVIEW OF SYSTEMS 12 point ROS negative unless noted in HPI PHYSICAL EXAM GENERAL APPEARANCE: The patient is awake, alert, and oriented, in no acute cardiopulmonary distress. NEUROLOGICAL: Cranial nerves II-XII grossly intact. Motor is 5/5 in bilateral upper and lower extremities proximal to distal. No sensory deficits. HEENT: Face is symmetric. Pupils are equal and reactive. Extraocular movements are intact. NECK: Supple. No JVD. No thyromegaly. No submental, submandibular, pre- /postauricular, occipital or supraclavicular lymphadenopathy. CHEST: Normal chest expansion. No Telemetry. LUNGS: Absence of any rales, rhonchi or any wheezing. CARDIOVASCULAR: Regular. S1 and S2 normal. No appreciable rubs, murmurs or gallops. ABDOMEN: Soft, nontender, and nondistended. There is no rebound, voluntary guarding, or rigidity. : Deferred. No Catherine. EXTREMITIES: Non-edematous and not cyanotic. No clubbing. Good capillary refill. SKIN: No skin breakdown. Vital Signs (last 8hr) Date Time Temp Pulse Resp B/P (MAP) Pulse Ox O2 Delivery O2 Flow Rate FiO2 10/04/24 09:21 132/94 10/04/24 08:00 97.3 68 18 137/68 98 Room Air 10/04/24 06:27 77 18 10/04/24 06:26 18 N/A Room Air 0.0 21 10/04/24 04:00 97.9 81 20 132/94 94 Room Air LABS: Laboratory: Test 10/04/24 03:48 Range/Units White Blood Count 7.2 4.8-10.8 K/uL Red Blood Count 2.80 L 4.50-6.20 MIL/uL Hemoglobin 8.6 L 14.0-18.0 g/dL Hematocrit 26.1 L 42-54 % Mean Corpuscular Volume 93.2 79-99 fL Mean Corpuscular Hemoglobin 30.7 27.0-33.0 pg Mean Corpuscular Hemoglobin Concent 33.0 32.0-36.0 g/dL Red Cell Distribution Width 13.7 11.0-15.5 % Platelet Count 257 130-400 K/uL Mean Platelet Volume 9.7 7.5-10.5 fL Immature Granulocyte % (Auto) 0.4 0-1 % Neutrophils (%) (Auto) 77.7 H 40.0-77.0 % Lymphocytes (%) (Auto) 13.5 L 21.0-51.0 % Monocytes (%) (Auto) 6.8 3.0-13.0 % Eosinophils (%) (Auto) 1.5 0.0-8.0 % Basophils (%) (Auto) 0.1 0.0-5.0 % Neutrophils # (Auto) 5.6 1.8-7.7 K/uL Lymphocytes # (Auto) 1.0 1.0-4.8 K/uL Monocytes # (Auto) 0.5 0.1-1.0 K/uL Eosinophils # (Auto) 0.11 0.00-0.70 K/uL Basophils # (Auto) 0.01 0.00-0.20 K/uL Absolute Immature Granulocyte (auto 0.03 0-1 K/uL Segmented Neutrophils % 80 H 40-70 % Lymphocytes % (Manual) 14 L 22-44 % Monocytes % (Manual) 6 2-9 % Nucleated Red Blood Cells 0.0 0.0-0.19 % Differential Comment MANUAL DIFFERENTIAL White Cell Morphology Comment Platelet Morphology Comment See comments Red Blood Cell Morphology ANISO 1+ Sodium Level 138 136-145 mmol/L Potassium Level 3.5 3.5-5.1 mmol/L Chloride Level 103 101-111 mmol/L Carbon Dioxide Level 31 21-32 mmol/L Blood Urea Nitrogen 64 H 7-18 mg/dL Creatinine 3.0 H 0.5-1.3 mg/dL Glomerular Filtration Rate Calc 20 >90 mL/min Random Glucose 135 H 70-105 mg/dL Total Calcium 6.5 L 8.5-10.1 mg/dL Magnesium Level 1.30 L 1.80-2.40 mg/dL Total Bilirubin 0.4 0.2-1.0 mg/dL Aspartate Amino Transf (AST/SGOT) 20 10-37 U/L Alanine Aminotransferase (ALT/SGPT) 2 L 12-78 U/L Alkaline Phosphatase 82 50-136 U/L Total Protein 4.0 L 6.0-8.3 g/dL Albumin 1.0 L 3.5-5.0 g/dL Current Medications Medications (Trade) Dose Ordered Sig/Juanita Route PRN Reason Start Time Stop Time Status Last Admin Dose Admin Acetaminophen (TYLenol 325MG TAB) 650 mg Q4H PRN PO MILD PAIN (1-3) 09/28/24 07:00 10/28/24 06:59 Acetaminophen (TYLenol 325MG TAB) 650 mg Q6H PRN PO TEMPERATURE GREATER THAN 101.5 09/28/24 07:00 10/28/24 06:59 Acetaminophen/ Hydrocodone Bitart (NORco 5/325MG) 1 tab Q4H PRN PO MODERATE PAIN (4-6) 09/28/24 07:00 10/03/24 06:59 DC 09/30/24 20:33 1 TAB Acetaminophen/ Hydrocodone Bitart (NORco 5/325MG) 2 tab Q4H PRN PO SEVERE PAIN (7-10) 09/28/24 07:00 10/03/24 06:59 DC Al Hydroxide/Mg Hydroxide (MAALox PLUS 30ML) 30 ml Q6H PRN PO INDIGESTION 09/28/24 07:00 10/28/24 06:59 Albuterol (DUOneb) 1 UDVIAL [id number] IH 10/01/24 12:00 10/31/24 11:59 10/04/24 06:25 1 UDVIAL Aspirin (Aspirin 81mg Chew Tab) 81 mg DAILY PO 09/28/24 09:00 10/28/24 08:59 10/04/24 09:19 81 MG Atorvastatin Calcium (LIPItor 40MG) 40 mg HS PO 09/28/24 21:00 10/28/24 20:59 10/03/24 20:06 40 MG Benzocaine (Hurricaine/ [place] 20% [place]) 50 mcg ONCE TP 09/27/24 16:30 09/28/24 07:12 DC 09/27/24 18:40 1 MCG Budesonide (Pulmicort 0.5 Mg/2ml) 0.5 mg BIDRESP 10/01/24 18:00 10/31/24 17:59 10/04/24 06:25 0.5 MG Carvedilol (Coreg 12.5MG) 12.5 mg BID PO 09/28/24 09:00 10/28/24 08:59 10/04/24 09:21 12.5 MG Cefepime HCl (MAXipime 1 GM vial) 1 gm Q24H IVPB 09/29/24 09:30 10/09/24 09:29 10/04/24 09:21 1 GM Cefepime HCl (MAXipime 2 gm vial) 2 gm Q8H IVPB 09/28/24 09:30 09/28/24 09:15 DC Diphenhydramine HCl (BENAdryl CAP) 25 mg Q4H PRN PO MILD ITCHING/RASH 09/28/24 07:00 10/28/24 06:59 Diphenhydramine HCl (BENAdryl INJ) 25 mg Q6H PRN IV SEVERE ITCHING/RASH 09/28/24 07:00 10/28/24 06:59 EZETIMIBE (Zetia) 10 mg DAILY PO 09/28/24 09:00 10/28/24 08:59 10/04/24 09:23 10 MG Famotidine (Pepcid 20mg Vial) 20 mg BID PRN IV NAUSEA/VOMITING 09/28/24 07:00 09/28/24 07:17 DC Famotidine (Pepcid 20mg Tab) 20 mg Q48H PO 09/28/24 09:00 10/28/24 08:59 10/04/24 09:20 20 MG Guaifenesin/ Dextromethorphan (RobiTUSSin DM 200/20MG 10ML) 10 ml Q4H PRN PO COUGH 09/28/24 07:00 10/28/24 06:59 Heparin Sodium (Porcine) (HEParin 5,000 UNIT VIAL) 5,000 unit TID SQ 09/28/24 09:00 10/28/24 08:59 10/04/24 09:17 5,000 UNIT Hydromorphone HCl (DiLAUDid 0.5MG INJ) 0.5 mg Q4H PRN IV SEVERE PAIN (7-10) IF NPO 09/28/24 07:00 10/03/24 06:59 DC Lactated Ringer's 1,000 ml @ 125 mls/hr Q8H IV 09/30/24 14:30 10/04/24 09:18 DC 10/04/24 05:36 125 MLS/HR Lactobacillus Rhamnosus ([facility]) 1 each BID PO 10/02/24 21:00 11/01/24 20:59 10/04/24 09:19 1 EACH Lactulose (Constulose 20gm/ 30ml Udcup) 20 gm BID PRN PO CONSTIPATION 09/28/24 07:00 10/28/24 06:59 Magnesium Sulfate 50 ml @ 0 mls/hr PROTOCOL IV 10/03/24 08:00 11/02/24 07:59 10/04/24 05:36 25 MLS/HR Magnesium Sulfate 50 ml @ 0 mls/hr PROTOCOL IV 10/04/24 09:00 10/04/24 09:07 DC Nitroglycerin (Nitrostat) 0.4 mg PROTOCOL PRN SL CHEST PAIN 09/28/24 07:00 10/28/24 06:59 Ondansetron HCl (zoFRAN 4MG INJ) 4 mg Q6H PRN IV NAUSEA/VOMITING 09/28/24 07:00 10/28/24 06:59 Potassium Chloride 100 ml @ 100 mls/hr AD PRN IV POTASSIUM PROTOCOL 10/03/24 05:30 11/02/24 05:29 10/03/24 05:44 100 MLS/HR Potassium Chloride (K-Dur 10meq Sr Tab) 10 meq AD PRN PO POTASSIUM PROTOCOL 10/03/24 12:00 11/02/24 05:29 Potassium Chloride (K-Dur/Klor-Con 20meq) 10 meq AD PRN PO POTASSIUM PROTOCOL 10/03/24 05:30 10/03/24 11:38 DC 10/03/24 05:43 10 MEQ Potassium Chloride (KCl 10% Elixir 20meq/15ml) 10 meq AD PRN PO POTASSIUM PROTOCOL 10/03/24 05:30 11/02/24 05:29 Sodium Bicarbonate 150 meq/Dextrose 1,150 ml @ 150 mls/hr Q7H40M IVP 09/29/24 10:00 09/30/24 14:02 DC 09/30/24 10:17 150 MLS/HR Sodium Chloride 1,000 ml @ 50 mls/hr Q20H IV 09/28/24 07:00 10/04/24 09:18 DC 09/29/24 03:14 100 MLS/HR Sodium Chloride 2,000 ml @ 0 mls/hr Q0M IV 09/28/24 14:30 09/30/24 14:05 DC 09/28/24 17:42 0 MLS/HR DIAGNOSTICS / RADIOLOGY: [ ] ASSESSMENT: Small bowel obstruction secondary to incarcerated small bowel through ventral hernia, POA s/p ex/lap with Partial small bowel resection with anastomosis and repair of iatrogenic gastrotomy performed, drains placed, EGD with therapeutic decompression (09/28/24) Dehydration secondary to recurrent vomiting, improving Post operative anion gap metabolic acidosis with respiratory compensation, resolved 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 Decreased urine output, improving Hypertension 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 Fall Precautions. Well lighted room through the day and minimize interruptions through the night to prevent acute delirium. PULMONARY: Supplemental 02 as needed BiPAP as necessary, for respiratory distress Titrate Fio2 to keep Spo2 > or = 90% DuoNebs and CPT as needed IS hourly while awake for pulmonary hygiene prn Out of bed to chair as tolerated Maintain aspiration precautions at all times CARDIOVASCULAR: Follow hemodynamics. Vital signs per facility protocol GI & NUTRITION: Continue nutritional support Aspirations precautions Prokinetic agents and laxatives as needed KIDNEYS & ELECTROLYTES: Strict monitoring of intake and output Daily weights Avoid nephrotoxic agents Monitor electrolytes and replace as needed Goal urine output of 30mL/hr or 0.5mL/kg/hr Medications to be dosed according to renal function. Avoid contrast if possible ENDOCRINE: Maintain blood glucose between 100-180 at all times. Insulin sliding scale for blood glucose management Hypoglycemia and hyperglycemia protocol in place INFECTIOUS DISEASE: Trend temperature, WBC and procalcitonin level Follow cultures, deescalate antibiotics as soon as possible. Panculture if new onset fever HEMATOLOGY & COAGULATION: Monitor H&H. Keep Hgb > 7 Transfuse 1 unit of PRBC for Hgb < 7 Transfuse 1 pack of platelets of platelets < 20, 000 Watch for any signs and symptoms of bleeding SKIN: Pressure ulcer prevention per facility protocol Specialty mattress as needed ORTHO/REHAB Continue PT/OT PRN: MEDICATIONS Tylenol 650 mg po every 4 hrs for fever zofran 4 mg IV every 6 hrs for n/v Hydralazine 5 mg IV every 4 hrs systolic pressure > 160 bowel regiment: lactulose 20 gm PO BID PRN constipation Supportive measures: Continue GI and DVT prophylaxis Disposition: Pending improvement in clinical condition. Discharge plan to shelter facility. All questions answered time spent: > 35 min DANNY BADILLO MD Oct 04, 2024 11:21
--- NOTE | 2024-10-04 14:14 | NUR ---
Discharge Update: Received authorization for [facility]. Dr. Orozco informed. States patient will d/c tomorrow if stable.
--- NOTE | 2024-10-04 18:28 | NUR ---
note sonia drain removed at this time as per dr anderson and madhavi aquino bed spring maker sonia dc as per hospital protocol family at bedside, pt tolerated removal cheri broadcast technician present at removal
--- NOTE | 2024-10-05 01:58 | NUR ---
NURSING NOTES BLADDER SCAN DONE AT AROUND 0050, 136ML. PT. STATES "HE HAS NO URGE". DENIES PAIN TO LOWER ABDOMEN, NO DISTENTION NOTED, LOWER ABDOMEN SOFT TO TOUCH. WILL CONTINUE TO MONITOR PT.
[2024-10-05 04:00] VITALS: BP 132/73; PULSE 78; RESP 17; TEMP 97.4
[2024-10-05 04:17] LABS: HEMATOCRIT 26.7 % (42-54); MEAN CORPUSCULAR HEMOGLOBIN 30.9 pg (27.0-33.0); MEAN CORPUSCULAR VOLUME 93.7 fL (79-99); RED BLOOD CELL COUNT(AUTO) 2.85 MIL/uL (4.50-6.20); RED CELL DISTRIBUTION WIDTH 13.9 % (11.0-15.5); WHITE BLOOD COUNT (AUTO) 6.6 K/uL (4.8-10.8)
[2024-10-05 04:36] LABS: BILIRUBIN,TOTAL 0.4 mg/dL (0.2-1.0); MAGNESIUM 2.3 mg/dL (1.80-2.40); POTASSIUM 5.8 mmol/L (3.5-5.1); TOTAL PROTEIN, SERUM 4.4 g/dL (6.0-8.3)
[2024-10-05 06:28] VITALS: PULSE 77; RESP 18; O2SAT 99
--- NOTE | 2024-10-05 07:56 | NUR ---
NURSING NOTE BLADDER SCAN DONE, WAS 279ML. PT. STATES "TO GIVE HIM SOME TIME, AFTER BREAKFAST WHEN THERAPY GETS HIM OUT OF BED,HE WILL TRY TO VOID IN THE RESTROOM". DENIES C/O PAIN TO LOWER ABDOMEN. WILL CONTINUE TO MONITOR.
[2024-10-05 08:00] VITALS: BP 126/72; PULSE 80; RESP 18; TEMP 97.5; O2SAT 98
--- NOTE | 2024-10-05 08:58 | PN ---
GENERAL SURGERY PROGRESS NOTE Date/Time Patient Seen: [ ] Problem List: Interval History: This is an 83yo male who presented with incarcerated small bowel/incisional hernia, small bowel obstruction. He underwent partial small bowel resection with anastomosis and repair of iatrogenic gastrotomy, drains were placed and EGD performed for decompression. 10/03 No acute events overnight. Patient seen today at bedside in no acute distress. He took the liberty of advancing his own diet today to a solid diet and tolerated well. Abdomen is soft and nontender. No nausea or vomiting. 1 MARITO drain remains in place. He overall feels well. Current Medications Medications (Trade) Dose Ordered Sig/Juanita Route Start Time Stop Time Status Last Admin Dose Admin Albuterol (DUOneb) 1 UDVIAL [id number] IH 10/01/24 12:00 10/31/24 11:59 10/05/24 06:40 1 UDVIAL Aspirin (Aspirin 81mg Chew Tab) 81 mg DAILY PO 09/28/24 09:00 10/28/24 08:59 10/04/24 09:19 81 MG Atorvastatin Calcium (LIPItor 40MG) 40 mg HS PO 09/28/24 21:00 10/28/24 20:59 10/04/24 22:14 40 MG Benzocaine (Hurricaine/ [place] 20% [place]) 50 mcg ONCE TP 09/27/24 16:30 09/28/24 07:12 DC 09/27/24 18:40 1 MCG Budesonide (Pulmicort 0.5 Mg/2ml) 0.5 mg BIDRESP IH 10/01/24 18:00 10/31/24 17:59 10/05/24 06:40 0.5 MG Carvedilol (Coreg 12.5MG) 12.5 mg BID PO 09/28/24 09:00 10/28/24 08:59 10/04/24 22:13 12.5 MG Cefepime HCl (MAXipime 1 GM vial) 1 gm Q24H IVPB 09/29/24 09:30 10/09/24 09:29 10/04/24 09:21 1 GM Cefepime HCl (MAXipime 2 gm vial) 2 gm Q8H IVPB 09/28/24 09:30 09/28/24 09:15 DC EZETIMIBE (Zetia) 10 mg DAILY PO 09/28/24 09:00 10/28/24 08:59 10/04/24 09:23 10 MG Famotidine (Pepcid 20mg Tab) 20 mg Q48H PO 09/28/24 09:00 10/28/24 08:59 10/04/24 09:20 20 MG Heparin Sodium (Porcine) (HEParin 5,000 UNIT VIAL) 5,000 unit TID SQ 09/28/24 09:00 10/28/24 08:59 10/04/24 22:20 5,000 UNIT Lactated Ringer's 1,000 ml @ 125 mls/hr Q8H IV 09/30/24 14:30 10/04/24 09:18 DC 10/04/24 05:36 125 MLS/HR Lactobacillus Rhamnosus ([facility] ilustrum & Fanminder) 1 each BID PO 10/02/24 21:00 11/01/24 20:59 10/04/24 22:13 1 EACH Magnesium Sulfate 50 ml @ 0 mls/hr PROTOCOL IV 10/03/24 08:00 11/02/24 07:59 10/04/24 14:10 20 MLS/HR Magnesium Sulfate 50 ml @ 0 mls/hr PROTOCOL IV 10/04/24 09:00 10/04/24 09:07 DC Sodium Bicarbonate 150 meq/Dextrose 1,150 ml @ 150 mls/hr Q7H40M IVP 09/29/24 10:00 09/30/24 14:02 DC 09/30/24 10:17 150 MLS/HR Sodium Chloride 1,000 ml @ 50 mls/hr Q20H IV 09/28/24 07:00 10/04/24 09:18 DC 09/29/24 03:14 100 MLS/HR Sodium Chloride 2,000 ml @ 0 mls/hr Q0M IV 09/28/24 14:30 09/30/24 14:05 DC 09/28/24 17:42 0 MLS/HR Physical Examination: GENERAL: [No acute distress.] HEAD: [Normal with no signs of head trauma.] EYES: [PERRLA, EOMI, conjunctiva and sclera normal.] ENT: [Hearing grossly intact, normal oropharynx.] NECK: [Supple without JVD. There is no tenderness, lymphadenopathy, or masses. No thyromegaly. Normal carotid upstrokes without bruits.] LUNGS: [Clear breath sounds bilaterally. There are right basilar rales one third of the way up the chest. No wheezes, or rhonchi.] HEART: [Normal rate and rhythm. Normal S1 and S2 without mumurs, gallop or rub.] VASC: [Peripheral pulses +2 bilaterally.] ABD: [Bowel sounds normal, soft, nontender, no masses, no organomegaly. No audible bruits.] : [Not examined] LYMPH: [No lymphadenopathy noted.] EXT: [No clubbing, cyanosis or edema.] SKIN: [No rashes or lesions noted.] NEURO: [Awake, alert, and oriented x3. No focal sensory or strength deficits noted.] Vital Signs (last 8hr) Date Time Temp Pulse Resp B/P (MAP) Pulse Ox O2 Delivery O2 Flow Rate FiO2 10/05/24 06:28 77 18 10/05/24 06:28 18 N/A Room Air 21 10/05/24 04:00 97.3 78 17 132/73 99 Room Air Laboratory: [ ] Hematology Labs: Test 10/05/24 03:28 10/04/24 03:48 Range/Units White Blood Count 6.6 4.8-10.8 K/uL Red Blood Count 2.85 L 4.50-6.20 MIL/uL Hemoglobin 8.8 L 14.0-18.0 g/dL Hematocrit 26.7 L 42-54 % Mean Corpuscular Volume 93.7 79-99 fL Mean Corpuscular Hemoglobin 30.9 27.0-33.0 pg Mean Corpuscular Hemoglobin Concent 33.0 32.0-36.0 g/dL Red Cell Distribution Width 13.9 11.0-15.5 % Platelet Count 247 130-400 K/uL Mean Platelet Volume 10.1 7.5-10.5 fL Nucleated Red Blood Cells 0.0 0.0-0.19 % Immature Granulocyte % (Auto) 0.4 0-1 % Neutrophils (%) (Auto) 77.7 H 40.0-77.0 % Lymphocytes (%) (Auto) 13.5 L 21.0-51.0 % Monocytes (%) (Auto) 6.8 3.0-13.0 % Eosinophils (%) (Auto) 1.5 0.0-8.0 % Basophils (%) (Auto) 0.1 0.0-5.0 % Neutrophils # (Auto) 5.6 1.8-7.7 K/uL Lymphocytes # (Auto) 1.0 1.0-4.8 K/uL Monocytes # (Auto) 0.5 0.1-1.0 K/uL Eosinophils # (Auto) 0.11 0.00-0.70 K/uL Basophils # (Auto) 0.01 0.00-0.20 K/uL Absolute Immature Granulocyte (auto 0.03 0-1 K/uL Segmented Neutrophils % 80 H 40-70 % Lymphocytes % (Manual) 14 L 22-44 % Monocytes % (Manual) 6 2-9 % Differential Comment MANUAL DIFFERENTIAL White Cell Morphology Comment Platelet Morphology Comment See comments Red Blood Cell Morphology ANISO 1+ Chemistry Labs: Test 10/05/24 03:28 Range/Units Sodium Level 144 136-145 mmol/L Potassium Level 5.8 H 3.5-5.1 mmol/L Chloride Level 110 101-111 mmol/L Carbon Dioxide Level 29 21-32 mmol/L Blood Urea Nitrogen 69 H 7-18 mg/dL Creatinine 3.0 H 0.5-1.3 mg/dL Glomerular Filtration Rate Calc 20 >90 mL/min Random Glucose 133 H 70-105 mg/dL Total Calcium 7.0 L 8.5-10.1 mg/dL Magnesium Level 2.30 1.80-2.40 mg/dL Total Bilirubin 0.4 0.2-1.0 mg/dL Aspartate Amino Transf (AST/SGOT) 27 10-37 U/L Alanine Aminotransferase (ALT/SGPT) 2 L 12-78 U/L Alkaline Phosphatase 82 50-136 U/L Total Protein 4.4 L 6.0-8.3 g/dL Albumin 1.0 L 3.5-5.0 g/dL Diagnostics / Radiology: [Copy/Paste Echos/Imaging Report here] Impression and Plan: Consider starting flomax, he may go home with nielsen if needed Wick dressing can be pulled 1 inch daily starting 2 days post op Appreciate assistance from hospitalist and nephrology KATELYN BANUELOS Oct 05, 2024 08:58
[2024-10-05 11:17] VITALS: PULSE 70; RESP 18
[2024-10-05] MEDS: NA ZIRCON CYCLOSIL(LOKELMA 10GM) PO ONE (11:36)
[2024-10-05 12:00] VITALS: BP 112/63; PULSE 89; RESP 18; TEMP 97.7
--- NOTE | 2024-10-05 14:03 | DS ---
Discharge Summary Hospital Course Summary: 83 yo M w/a PMHx of hypertension, CKD IV, dyslipidemia, colon cancer s/p hemicolectomy (09/12/24) presented with abdominal pain, distention, recurrent nausea and vomiting. The patient with a recently surgery on September 12. CT of the abdomen and pelvis showed a herniated loop of small bowel in the right ventral abdomen, possibly through the incision for a laparoscopic port. Patient admitted for small bowel obstruction secondary to incarcerated loop of bowel, NG tube placed to intermittent suction and patient started on pain management with IV fluids. Colorectal surgery consulted to assess the patient. The patient was taken to the operating room, underwent general and local anesthesia underwent partial small-bowel resection with anastomosis and repair of via after he had a gastrostomy performed, drains placed, EGD with therapeutic decompression, patient tolerated the procedure well. Today the patient is alert oriented x3, hemodynamically stable, afebrile, tolerating diet, denies dizziness, no headache, no chest pain, no shortness a breath, no nausea, no vomiting, no abdominal pain, no diarrhea, no constipation, no melena, no hematochezia, no hematemesis, no hematuria, no dysuria. The patient has been cleared from surgical standpoint to be discharged to correction facility. Case discussed with case management, patient already accepted. Paperwork done. 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 SYNOPSIS: Partial small bowel resection with anastomosis and repair of iatrogenic gastrotomy performed, drains placed, EGD with therapeutic decompression PROCEDURE: 1. Diagnostic laparoscopy - Robotic assisted 2. Partial small bowel resection with primary anastomosis 3. Primary repair of incisional hernia (no mesh due to contamination presence) 4. Repair iatrogenic gastrotomy 5. EGD with therapeutic decompression of gastric contents 6. 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 Home Medications: Reported Medications Aspirin (Aspirin) 81 Mg Tab.chew, 81 MG PO DAILY, TAB.CHEW 09/12/24 Omeprazole (Omeprazole) 40 Mg Capsule.dr, 40 MG PO BID, CAP 09/12/24 Ezetimibe (Ezetimibe) 10 Mg Tablet, 10 MG PO DAILY, TAB 09/12/24 Sucralfate (Sucralfate) 1 Gram/10 Ml Oral.susp, 10 ML PO QID for 30 Days, #600 ML 0 Refills 09/12/24 Atorvastatin Calcium (Atorvastatin Calcium) 40 Mg Tablet, 40 MG PO HS, TAB 09/08/24 Carvedilol (Carvedilol) 12.5 Mg Tablet, 12.5 MG PO BID, TAB 09/08/24 Time spent arranging discharge: 31-60 minutes DANNY BADILLO MD Oct 05, 2024 14:03
--- NOTE | 2024-10-05 14:39 | NUR ---
dressing change dressing change to abdomen done at this time, noted old dressing to have slight serosanguineous drainage, cleansed site with NS and removed 2inches of packing. Covered with 4x4 gauze and applied Medipore tape. Wound pictures done at this time.
--- NOTE | 2024-10-05 14:46 | NUR ---
note report given to [facility], pending facility van pickup
--- NOTE | 2024-10-05 17:47 | PN ---
FOLLOWUP PROGRESS NOTE SUBJECTIVE: An 83-year-old male initially presented with bowel obstruction. The patient underwent surgery. The patient has had acute on chronic renal failure in the hospital. The patient's Catherine catheter was removed yesterday. The patient is having difficulty with urination and he is being seen as a followup visit for all of the above. REVIEW OF SYSTEMS: CONSTITUTIONAL: He has been feeling weak and tired. HEENT: No change in vision. No change in hearing, no nasal discharge, no sore throat. CARDIOVASCULAR: There is no current chest pain or palpitations. PULMONARY: Denies any shortness of breath. GASTROINTESTINAL: He is tolerating a diet. MUSCULOSKELETAL: He complains of the weakness. PHYSICAL EXAMINATION: VITAL SIGNS: Blood pressure is 132/73, pulse in the 80s. He is afebrile. GENERAL: He is a chronically ill male, elderly, lying in bed on medical floor. HEENT: Head is atraumatic. Pupils equal, roving to light. Oropharynx is without exudate. Nares clear. NECK: There is no JVP. There is no thyromegaly, no mass. CARDIOVASCULAR: Regular. There is no S3, S4 gallop. LUNGS: Coarse with equal thoracic movement. ABDOMEN: Soft, nondistended, nontender. EXTREMITIES: Reveal no clubbing, no cyanosis. NEUROLOGIC: He is awake. He is alert. LABORATORY DATA: Sodium 144, potassium 5.8, BUN 69, creatinine is 3. Hemoglobin 8.8, hematocrit 26. IMPRESSION: * Acute on chronic renal failure. * Bowel obstruction, status post surgery. * Hyperkalemia. * Debilitation. PLAN: The patient will be given Lokelma for the hyperkalemia. Chemistries can be repeated in the morning. The patient is having difficulty with urination. We will order bladder scan. If needed, the patient's Catherine catheter can be replaced. We will continue to follow closely. The patient is being seen by case management in regards to final disposition, which will be SNF. TID: [id number] RECEIPT: [id number]
== END 2024-10-05 16:35 | DRG 329 ==
LOC: EDH 13:17 → EDHIP 16:27 → 3AH 22:39
PROVIDERS: ADMIT Internal Medicine; ATTEND Internal Medicine
PROC: 0DB84ZZ Excision of Small Intestine, Percutaneous Endoscopic Approach (ICD-10-PCS; principal; 2024-09-28 10:13)
PROC: 0WQF4ZZ Repair Abdominal Wall, Percutaneous Endoscopic Approach (ICD-10-PCS; 2024-09-28 10:13)
PROC: 8E0W4CZ Robotic Assisted Procedure of Trunk Region, Percutaneous Endoscopic Approach (ICD-10-PCS; 2024-09-28 10:13)
PROC: 0D9680Z Drainage of Stomach with Drainage Device, Via Natural or Artificial Opening Endoscopic (ICD-10-PCS; 2024-09-28 10:13)
DX: K43.6 Other and unspecified ventral hernia with obstruction, without gangrene (principal); N17.0 Acute kidney failure with tubular necrosis; R65.11 Systemic inflammatory response syndrome (SIRS) of non-infectious origin with acute organ dysfunction; E87.20 Acidosis, unspecified; N18.4 Chronic kidney disease, stage 4 (severe); E86.9 Volume depletion, unspecified; E78.00 Pure hypercholesterolemia, unspecified; E11.22 Type 2 diabetes mellitus with diabetic chronic kidney disease; I12.9 Hypertensive chronic kidney disease with stage 1 through stage 4 chronic kidney disease, or unspecified chronic kidney disease; D64.9 Anemia, unspecified; K57.30 Diverticulosis of large intestine without perforation or abscess without bleeding; E86.0 Dehydration; Z85.038 Personal history of other malignant neoplasm of large intestine; Z79.82 Long term (current) use of aspirin; Z79.899 Other long term (current) drug therapy; Z90.49 Acquired absence of other specified parts of digestive tract; Z99.81 Dependence on supplemental oxygen
CPT/HCPCS: 36415; 36430; 36600; 43235; 71045; 74176; 80048; 80053; 81001; 82435; 82550; 82570; 82803; 82947; 82948; 83540; 83550; 83605; 83735; 83880; 84100; 84132; 84145; 84295; 84300; 84443; 84484; 85018; 85025; 85027; 85610; 85730; 86850; 86900; 86901; 86923; 87040; 87086; 87186; 88307; 93005; 94640; 94664; 99285; A4450; C1894; G0378; J0692; J1100; J1644; J2003; J2405; J2704; J2710; J3010; J3475; J3480; J3490; J7070; A4215; A4216; A4222; A4223; A4600; A4930; A6206; C1750; J0665; J0690